=== PATIENT | female | born 1955 | race Caucasian/White ===

== ENCOUNTER → 2018-01-22 09:11 | Outpatient (CLI) | payer BC, SELFPAY ==
--- NOTE | 2018-01-22 09:15 | MM_ITS ---
MM Dig screening mamm BI w/CAD CAD Screening ORDERING PHYSICIAN : Ritesh Mills MD PATIENT AGE: 62 years GENDER: Female COMPARISON: Previous mammograms: January 2016, 2014, 2013. INDICATION: 62-year-old. No hormones. No new complaints. Noncontributory family history. TECHNIQUE: Standard CC and MLO images were obtained. R2 CAD reviewed. FINDINGS: Lower density breasts with overall generalized fatty replacement. No dominant mass or suspicious calcification nor architectural distortion. There are a few small stable calcifications in both breast but these can be followed safely. . Bilateral follow-up mammogram 1 year recommended IMPRESSION: Stable bilateral mammogram. No significant new findings. BI-RADS Category: 2 Benign Finding(s) RECOMMENDED FOLLOW-UP: 1YR - 1 YEAR FOLLOW-UP (A letter has been sent to the patient regarding results of the study.)
== END ==
PROVIDERS: Family Provider Family Medicine; PCP Family Medicine; Visit Provider Family Medicine
DX: Z12.31 Encounter for screening mammogram for malignant neoplasm of breast (principal)
CPT/HCPCS: 77067

== ENCOUNTER → 2019-02-18 08:32 | Outpatient (CLI) | payer BC, SELFPAY ==
--- NOTE | 2019-02-18 08:37 | MM_ITS ---
MM Dig screening mamm BI w/CAD CAD Screening COMPARISON: Digital mammograms with CAD 01/22/2018 and 02/11/2016 INDICATION: There is no personal or family history of breast cancer TECHNIQUE: Standard CC and MLO images were obtained. R2 CAD reviewed. FINDINGS: The breasts are composed primarily of fat with minimal scattered fiber glandular densities throughout each breast. There are few benign-appearing microcalcifications in each breast as noted previously. There is no suspicious lesion and there are no suspicious microcalcifications. IMPRESSION: Fatty type breast parenchyma with no suspicious lesion seen BI-RADS Category: 2 Benign Finding(s) RECOMMENDED FOLLOW-UP: 1YR - 1 YEAR FOLLOW-UP (A letter has been sent to the patient regarding results of the study.)
== END ==
PROVIDERS: PCP Family Medicine; Visit Provider Family Medicine
DX: Z12.31 Encounter for screening mammogram for malignant neoplasm of breast (principal)
CPT/HCPCS: 77067

== ENCOUNTER → 2020-06-28 07:41 | Outpatient (CLI) | payer BC, SELFPAY ==
--- NOTE | 2020-06-28 07:45 | MM_ITS ---
PROCEDURE: MM DIG SCREENING MAMM BI W/CAD Patient Age:64Y CLINICAL INDICATION: SCREENING routine screening mammogram with no new complaints. No hormones. The noncontributory negative family history COMPARISON: [facility] DIG MAMM-SCREEN JESUS from 02/08/2015 [facility] DIG MAMM-SCREEN [facility] from 02/11/2016 [facility] MM Dig screening mamm BI w/CAD from 01/22/2018 [facility] MM Dig screening mamm BI w/CAD from 02/18/2019 TECHNIQUE: Standard CC and MLO images were obtained. R2 CAD reviewed. Bilateral digital breast tomosynthesis included. Additional nipple profile views both CC and both MLO included FINDINGS: The the cut so is the minimal residual fibroglandular elements, moderate generalized fatty replacement. No new dominant or suspicious mass. No new areas of concern either breast with no change since prior studies dating back to at least CAD computer review highlights no areas of concern only a few small scattered benign punctate calcifications noted-not of concern. Bilateral Follow-up 1 year recommended IMPRESSION: Stable bilateral screening mammogram. No new areas of concern Follow-up 1 year Bilateral BI-RAD Category: 1 Negative FOLLOW-UP: 1YR 1 Year Follow-up. (A letter has been sent to the patient regarding results of the study.) Dictated b Gregory Morris MD 06/29/2020 13:20 Gregory Morris MD in [facility] 06/29/2020 13:20
== END ==
PROVIDERS: PCP Family Medicine; Visit Provider Family Medicine
DX: Z12.31 Encounter for screening mammogram for malignant neoplasm of breast (principal)
CPT/HCPCS: 77063; 77067

== ENCOUNTER → 2021-07-25 16:06 | Outpatient (CLI) | payer BC, SELFPAY ==
--- NOTE | 2021-07-25 16:10 | MM_ITS ---
PROCEDURE: MM DIG SCREENING MAMM BI W/CAD Digital Breast Tomosynthesis Included CLINICAL INDICATION: SCREENING COMPARISON: MG [facility] MM Dig screening mamm BI w/CAD from 01/22/2018 MG [facility] MM Dig screening mamm BI w/CAD from 02/18/2019 MG MM DIG SCREENING MAMM BI W/CAD from 06/28/2020 TECHNIQUE: Standard CC and MLO images and 3D Tomosynthesis was obtained. R2 CAD reviewed. FINDINGS: The breasts are almost entirely fatty.. No suspicious appearing mass, malignant-appearing microcalcification, architectural distortion, or skin thickening.. There is scattered benign-appearing calcifications. IMPRESSION: Benign findings. No change with no evidence of malignancy BI-RAD Category: 2 Benign Finding FOLLOW-UP: 1 YR 1 Year Follow-up (A letter has been sent to the patient regarding results of the study.) Dictated by: Magdiel Ramirez MD 08/07/2021 08:54 Magdiel Ramirez MD in [facility] 08/07/2021 08:54
== END ==
PROVIDERS: PCP Family Medicine; Visit Provider Nurse Practitioner
DX: Z12.31 Encounter for screening mammogram for malignant neoplasm of breast (principal)
CPT/HCPCS: 77063; 77067

== ENCOUNTER → 2021-11-28 10:43 | Outpatient (CLI) | payer BC, SELFPAY | PROVIDERS: Visit Provider Nurse Practitioner | DX: Z20.822 Contact with and (suspected) exposure to COVID-19 (principal) | CPT/HCPCS: C9803; U0003; U0005 ==

== ENCOUNTER → 2022-05-26 08:32 | Outpatient (CLI) | payer BC, SELFPAY ==
[2022-05-23 18:58] LABS: Alanine Aminotransferase 20 U/L (12-78); Albumin/Globulin Ratio 1.4 (1.1-1.8); Alkaline Phosphatase 116 U/L (38-126); Anion Gap 8.9 mEq/L (5-15); Aspartate Amino Transferase 29 U/L (14-36); Bilirubin,Total 0.6 mg/dl (0.2-1.3); Blood Urea Nitrogen 15 mg/dl (7-17); Calcium 9.8 mg/dl (8.4-10.2); Carbon Dioxide 31 mmol/L (22.0-30.0); Chloride 104 mmol/L (98-107); Chol/HDL Ratio 3.3 (1-3.5); Cholesterol 170 mg/dl (140-200); Estimated Glomerular Filt Rate 84 ml/min (>60); GFR (African American) 102 ML/MIN (>60); Globulin 2.8 g/dL (1.3-3.2); Glucose 113 mg/dl (74-100); HDL Cholesterol 52 mg/dl (40-60); Potassium 4.9 mmoL/L (3.5-5.1); Sodium 139 mmol/L (136-145); Total Protein,Serum 6.8 g/dl (6.3-8.2); Triglycerides 128 mg/dl (30-150); VLDL Cholesterol 26 mg/dL (0-40)
[2022-05-23 19:10] LABS: Direct LDL Cholesterol 79.12 mg/dL (100-129)
[2022-05-23 19:16] LABS: 25-OH Vitamin D, Total 21.2 ng/mL (30-100)
[2022-05-23 19:29] LABS: Thyroid Stimulating Hormone 0.79 uIU/mL (0.465-4.68)
[2022-05-23 19:39] LABS: Microalbumin < 6.000 mg/L (0-16.7)
[2022-05-23 20:07] LABS: Basophils # 0.1 K/mm3 (0-0.2); Basophils % 2.3 % (0.1-2.0); Eosinophils % 0.9 % (0.1-12.0); Hematocrit 43.1 % (37.0-47.0); Hemoglobin 13.9 g/dL (12.2-16.2); Lymphocytes # 1.3 K/mm3 (0.7-4.5); Lymphocytes % 27.9 % (10-50); Mean Corpuscular HGB Conc 32.3 g/dL (31.8-35.4); Mean Corpuscular Hemoglobin 30.5 pg (27.0-31.2); Mean Corpuscular Volume 94.2 fl (81-99); Mean Platelet Volume 8.6 fl (7.4-10.4); Monocytes # 0.4 K/mm3 (0.1-1.0); Monocytes % 7.7 % (1.7-9.3); Neutrophils # 2.8 K/mm3 (1.8-7.8); Neutrophils % 61.2 % (37.0-80.0); Platelet Count 232 K/mm3 (142-424); Red Blood Count 4.57 M/mm3 (4.20-5.40); Red Cell Distribution Width 13.3 % (11.5-17.5); White Blood Count 4.5 K/mm3 (4.8-10.8)
== END ==
PROVIDERS: Visit Provider Nurse Practitioner
DX: E03.9 Hypothyroidism, unspecified (principal); E78.5 Hyperlipidemia, unspecified; E55.9 Vitamin D deficiency, unspecified; Z13.1 Encounter for screening for diabetes mellitus; Z79.899 Other long term (current) drug therapy
CPT/HCPCS: 80053; 80061; 82043; 82306; 83036; 84436; 84443; 85025

== ENCOUNTER → 2022-07-16 06:41 | Outpatient (CLI) | payer BC, SELFPAY ==
[2022-07-16 21:49] LABS: 25-OH Vitamin D, Total 41.5 ng/mL (30-100)
== END ==
PROVIDERS: PCP Family Medicine; Visit Provider Family Medicine
DX: E55.9 Vitamin D deficiency, unspecified (principal)
CPT/HCPCS: 82306

== ENCOUNTER → 2022-08-20 08:15 | Outpatient (CLI) | payer BC, SELFPAY ==
--- NOTE | 2022-08-20 08:15 | MM_ITS ---
PROCEDURE INFORMATION: Exam: MG Bilateral Screening 3D Mammography Exam date and time: 08/20/2022 8:11 AM Age: 66 years old Clinical indication: Screening mammogram. TECHNIQUE: Imaging protocol: Bilateral Screening tomosynthesis and 2D mammography including computer-aided detection (CAD) when performed. COMPARISON: 1. MG MM DIG SCREENING MAMM BI W/CAD 07/25/2021 4:12 PM 2. MG MM DIG SCREENING MAMM BI W/CAD 06/28/2020 8:07 AM 3. MG [facility] MM Dig screening mamm BI w/CAD 02/18/2019 9:09 AM 4. MG [facility] MM Dig screening mamm BI w/CAD 01/22/2018 9:31 AM FINDINGS: MAMMOGRAPHY: Breast composition: There are scattered areas of fibroglandular density. Mass: None. Architectural distortion: No new or suspicious architectural distortion. Calcifications: Stable benign-appearing calcifications are present. No new or suspicious cluster of microcalcifications have developed. Asymmetric density: No new or suspicious asymmetric density is present Skin thickening: None. Axillary adenopathy: None. IMPRESSION: No mammographic evidence of malignancy. Recommend annual screening mammography unless otherwise clinically indicated. ASSESSMENT: BI-RADS category 2: Benign
== END ==
PROVIDERS: PCP Nurse Practitioner; Visit Provider Nurse Practitioner
DX: Z12.31 Encounter for screening mammogram for malignant neoplasm of breast (principal)
CPT/HCPCS: 77063; 77067

== ENCOUNTER → 2022-11-18 08:20 | Outpatient (CLI) | payer MEDICARE, SELFPAY ==
[2022-11-18 19:01] LABS: Alanine Aminotransferase 17 U/L (12-78); Albumin Level 4.2 g/dl (3.5-5.0); Albumin/Globulin Ratio 1.6 (1.1-1.8); Alkaline Phosphatase 116 U/L (38-126); Anion Gap 11.6 mEq/L (5-15); Aspartate Amino Transferase 26 U/L (14-36); Bilirubin,Total 0.5 mg/dl (0.2-1.3); Blood Urea Nitrogen 20 mg/dl (7-17); Calcium 9.8 mg/dl (8.4-10.2); Carbon Dioxide 29 mmol/L (22.0-30.0); Chloride 102 mmol/L (98-107); Cholesterol 158 mg/dl (140-200); Estimated Glomerular Filt Rate 84 ml/min (>60); GFR (African American) 102 ML/MIN (>60); Globulin 2.7 g/dL (1.3-3.2); Glucose 115 mg/dl (74-100); HDL Cholesterol 52 mg/dl (40-60); Potassium 4.6 mmoL/L (3.5-5.1); Sodium 138 mmol/L (136-145); Total Protein,Serum 6.9 g/dl (6.3-8.2); Triglycerides 152 mg/dl (30-150); VLDL Cholesterol 30 mg/dL (0-40)
[2022-11-18 19:11] LABS: Hemoglobin A1C 6.1 % (4.0-6.0)
[2022-11-18 19:12] LABS: Direct LDL Cholesterol 77.08 mg/dL (100-129)
[2022-11-18 19:16] LABS: Free T4 (Free Thyroxine) 1.85 ng/dl (0.78-2.19)
[2022-11-18 19:17] LABS: 25-OH Vitamin D, Total 44.6 ng/mL (30-100)
[2022-11-18 19:31] LABS: Thyroid Stimulating Hormone 0.45 uIU/mL (0.465-4.68)
== END ==
PROVIDERS: PCP Nurse Practitioner; Visit Provider Nurse Practitioner
DX: E03.9 Hypothyroidism, unspecified (principal); E78.5 Hyperlipidemia, unspecified; I10 Essential (primary) hypertension; R73.01 Impaired fasting glucose; E55.9 Vitamin D deficiency, unspecified
CPT/HCPCS: 80053; 80061; 82306; 83036; 84439; 84443

== ENCOUNTER → 2023-01-01 16:25 | Outpatient (CLI) | payer MEDICARE, SELFPAY ==
[2023-01-01 17:05] LABS: Alanine Aminotransferase 17 U/L (12-78); Albumin Level 4.2 g/dl (3.5-5.0); Albumin/Globulin Ratio 1.6 (1.1-1.8); Alkaline Phosphatase 106 U/L (38-126); Anion Gap 7.4 mEq/L (5-15); Aspartate Amino Transferase 24 U/L (14-36); Bilirubin,Total 0.6 mg/dl (0.2-1.3); Blood Urea Nitrogen 17 mg/dl (7-17); Calcium 9.1 mg/dl (8.4-10.2); Carbon Dioxide 30 mmol/L (22.0-30.0); Chloride 104 mmol/L (98-107); Chol/HDL Ratio 3.2 (1-3.5); Cholesterol 138 mg/dl (140-200); Estimated Glomerular Filt Rate 84 ml/min (>60); GFR (African American) 102 ML/MIN (>60); Globulin 2.7 g/dL (1.3-3.2); Glucose 114 mg/dl (74-100); HDL Cholesterol 43 mg/dl (40-60); Potassium 4.4 mmoL/L (3.5-5.1); Sodium 137 mmol/L (136-145); Total Protein,Serum 6.9 g/dl (6.3-8.2); Triglycerides 147 mg/dl (30-150); VLDL Cholesterol 29 mg/dL (0-40)
[2023-01-01 17:18] LABS: Direct LDL Cholesterol 71.52 mg/dL (100-129)
[2023-01-01 17:36] LABS: Thyroid Stimulating Hormone 0.95 uIU/mL (0.465-4.68)
[2023-01-01 18:27] LABS: Hemoglobin A1C 5.9 % (4.0-6.0)
== END ==
PROVIDERS: Visit Provider Nurse Practitioner
DX: E03.9 Hypothyroidism, unspecified (principal); E78.5 Hyperlipidemia, unspecified; I10 Essential (primary) hypertension; R73.01 Impaired fasting glucose
CPT/HCPCS: 80053; 80061; 83036; 84439; 84443

== ENCOUNTER → 2023-04-14 08:38 | Outpatient (CLI) | payer MEDICARE, SELFPAY ==
[2023-04-14 18:39] LABS: Alanine Aminotransferase 19 U/L (12-78); Albumin Level 4.1 g/dl (3.5-5.0); Albumin/Globulin Ratio 1.6 (1.1-1.8); Alkaline Phosphatase 123 U/L (38-126); Anion Gap 15.9 mEq/L (5-15); Aspartate Amino Transferase 27 U/L (14-36); Bilirubin,Total 0.5 mg/dl (0.2-1.3); Blood Urea Nitrogen 17 mg/dl (7-17); Calcium 9.1 mg/dl (8.4-10.2); Carbon Dioxide 28 mmol/L (22.0-30.0); Chloride 97 mmol/L (98-107); Chol/HDL Ratio 2.3 (1-3.5); Cholesterol 137 mg/dl (140-200); Estimated Glomerular Filt Rate 100 ml/min (>60); GFR (African American) 121 ML/MIN (>60); Globulin 2.6 g/dL (1.3-3.2); Glucose 96 mg/dl (74-100); HDL Cholesterol 59 mg/dl (40-60); Potassium 4.9 mmoL/L (3.5-5.1); Sodium 136 mmol/L (136-145); Total Protein,Serum 6.7 g/dl (6.3-8.2); Triglycerides 105 mg/dl (30-150); VLDL Cholesterol 21 mg/dL (0-40)
[2023-04-14 18:49] LABS: Direct LDL Cholesterol 66.42 mg/dL (100-129)
[2023-04-14 18:54] LABS: Free T4 (Free Thyroxine) 1.75 ng/dl (0.78-2.19)
[2023-04-14 18:58] LABS: 25-OH Vitamin D, Total 51.3 ng/mL (30-100)
[2023-04-14 19:12] LABS: Thyroid Stimulating Hormone 0.75 uIU/mL (0.465-4.68)
== END ==
PROVIDERS: PCP Nurse Practitioner; Visit Provider Nurse Practitioner
DX: E03.9 Hypothyroidism, unspecified (principal); E11.9 Type 2 diabetes mellitus without complications; E55.9 Vitamin D deficiency, unspecified; E78.5 Hyperlipidemia, unspecified; I10 Essential (primary) hypertension; R39.15 Urgency of urination; E66.01 Morbid (severe) obesity due to excess calories; Z68.41 Body mass index [BMI] 40.0-44.9, adult; Z79.84 Long term (current) use of oral hypoglycemic drugs
CPT/HCPCS: 80053; 80061; 82306; 84439; 84443; 87086

== ENCOUNTER → 2023-04-27 13:05 | Outpatient (CLI) | payer MEDICARE, SELFPAY | PROVIDERS: PCP Nurse Practitioner; Visit Provider Nurse Practitioner | DX: R06.83 Snoring (principal); G47.33 Obstructive sleep apnea (adult) (pediatric); I10 Essential (primary) hypertension | CPT/HCPCS: G0399 ==

== ENCOUNTER → 2023-08-25 08:13 | Outpatient (CLI) | payer MEDICARE, SELFPAY ==
--- NOTE | 2023-08-25 08:14 | MM_ITS ---
PROCEDURE INFORMATION: Exam: MG Bilateral Screening 3D Mammography Exam date and time: 08/25/2023 8:08 AM Age: 67 years old Clinical indication: Screening mammogram. No personal or family history of breast cancer TECHNIQUE: Imaging protocol: Bilateral Screening tomosynthesis and 2D mammography including computer-aided detection (CAD) when performed. COMPARISON: 1. MG MM DIG SCREENING MAMM BI W/CAD 08/20/2022 8:11 AM 2. MG MM DIG SCREENING MAMM BI W/CAD 07/25/2021 4:12 PM 3. MG MM DIG SCREENING MAMM BI W/CAD 06/28/2020 8:07 AM 4. MG [facility] MM Dig screening mamm BI w/CAD 02/18/2019 9:09 AM FINDINGS: MAMMOGRAPHY: Breast composition: There are scattered areas of fibroglandular density. Mass: None. Architectural distortion: No new or suspicious architectural distortion. Calcifications: No new or suspicious calcifications are present Asymmetric density: No new or suspicious asymmetric density is present Skin thickening: None. Axillary adenopathy: None. IMPRESSION: No mammographic evidence of malignancy. Recommend annual screening mammography unless otherwise clinically indicated. ASSESSMENT: BI-RADS category 1: Negative
== END ==
PROVIDERS: PCP Nurse Practitioner; Visit Provider Nurse Practitioner
DX: Z12.31 Encounter for screening mammogram for malignant neoplasm of breast (principal)
CPT/HCPCS: 77063; 77067

== ENCOUNTER → 2023-09-07 18:26 | Outpatient (CLI) | payer MEDICARE, SELFPAY ==
[2023-09-07 18:40] LABS: Microscopic, Urine URINE MICROSCOPIC (MICROSCOPIC)
[2023-09-07 18:50] LABS: Appearance,Urine CLEAR (Clear); Bilirubin,Urine Negative (Negative); Blood, Urine Negative (Negative); Color,Urine YELLOW (Yellow); Glucose,Urine (UA) Negative (Negative); Ketones,Urine Negative (Negative); Leukocyte Esterase,Urine Negative (Negative); Nitrate,Urine Negative (Negative); PH,Urine 5.5 (5.0-8.5); Protein,Urine Negative (Negative); Specific Gravity, Urine 1.025 (1.005-1.030); Urobilinogen,Urine 0.2 EU/dl (0.2)
[2023-09-07 19:10] LABS: Squamous Epithelial Cell,Urine Occasional #/hpf (0-5); WBC,Urine Occasional #/hpf (0-3)
== END ==
PROVIDERS: PCP Nurse Practitioner; Visit Provider Nurse Practitioner
DX: N30.01 Acute cystitis with hematuria (principal)
CPT/HCPCS: 81001; 87086

== ENCOUNTER → 2023-09-29 08:46 | Outpatient (CLI) | payer MEDICARE, SELFPAY ==
[2023-09-29 19:00] LABS: Basophils % 0.5 % (0.1-2.0); Eosinophils # 0.1 K/mm3 (0.0-0.4); Eosinophils % 0.9 % (0.1-12.0); Hematocrit 42.2 % (37.0-47.0); Hemoglobin 14.6 g/dL (12.2-16.2); Lymphocytes # 1.6 K/mm3 (0.7-4.5); Lymphocytes % 24.8 % (10-50); Mean Corpuscular HGB Conc 34.6 g/dL (31.8-35.4); Mean Corpuscular Hemoglobin 32.2 pg (27.0-31.2); Mean Platelet Volume 8.5 fl (7.4-10.4); Monocytes # 0.4 K/mm3 (0.1-1.0); Monocytes % 6.4 % (1.7-9.3); Neutrophils # 4.3 K/mm3 (1.8-7.8); Neutrophils % 67.4 % (37.0-80.0); Platelet Count 231 K/mm3 (142-424); Red Blood Count 4.54 M/mm3 (4.20-5.40); Red Cell Distribution Width 13.2 % (11.5-17.5); White Blood Count 6.4 K/mm3 (4.8-10.8)
[2023-09-29 19:12] LABS: Alanine Aminotransferase 19 U/L (12-78); Albumin/Globulin Ratio 1.4 (1.1-1.8); Alkaline Phosphatase 102 U/L (38-126); Anion Gap 10.6 mEq/L (5-15); Aspartate Amino Transferase 27 U/L (14-36); Bilirubin,Total 0.6 mg/dl (0.2-1.3); Blood Urea Nitrogen 19 mg/dl (7-17); Calcium 9.3 mg/dl (8.4-10.2); Carbon Dioxide 29 mmol/L (22.0-30.0); Chloride 102 mmol/L (98-107); Chol/HDL Ratio 2.8 (1-3.5); Cholesterol 161 mg/dl (140-200); Estimated Glomerular Filt Rate 72 ml/min (>60); GFR (African American) 87 ML/MIN (>60); Globulin 2.8 g/dL (1.3-3.2); Glucose 101 mg/dl (74-100); HDL Cholesterol 57 mg/dl (40-60); Potassium 4.6 mmoL/L (3.5-5.1); Sodium 137 mmol/L (136-145); Total Protein,Serum 6.8 g/dl (6.3-8.2); Triglycerides 110 mg/dl (30-150); VLDL Cholesterol 22 mg/dL (0-40)
[2023-09-29 19:20] LABS: Creatinine,Urine Random 19 mg/dL (Not Estab.)
[2023-09-29 19:23] LABS: Direct LDL Cholesterol 85.51 mg/dL (100-129)
[2023-09-29 19:32] LABS: Free T4 (Free Thyroxine) 2.15 ng/dl (0.78-2.19); Microalbumin < 6.000 mg/L (0-16.7)
[2023-09-29 19:43] LABS: Thyroid Stimulating Hormone 1.09 uIU/mL (0.465-4.68)
[2023-09-29 20:30] LABS: Hemoglobin A1C 5.6 % (4.0-6.0)
== END ==
PROVIDERS: PCP Nurse Practitioner; Visit Provider Nurse Practitioner
DX: E03.9 Hypothyroidism, unspecified (principal); E78.5 Hyperlipidemia, unspecified; I10 Essential (primary) hypertension; J30.9 Allergic rhinitis, unspecified; R73.01 Impaired fasting glucose
CPT/HCPCS: 80053; 80061; 82043; 82570; 83036; 84439; 84443; 85025

== ENCOUNTER 2024-05-02 18:00 | Outpatient (CLI) | payer MEDICARE, SELFPAY ==
[2024-05-02 18:13] LABS: Basophils # 0.1 K/mm3 (0-0.2); Basophils % 0.8 % (0.1-2.0); Eosinophils # 0.1 K/mm3 (0.0-0.4); Eosinophils % 0.7 % (0.1-12.0); Hematocrit 44.1 % (37.0-47.0); Hemoglobin 14.3 g/dL (12.2-16.2); Lymphocytes # 1.8 K/mm3 (0.7-4.5); Lymphocytes % 22.5 % (10-50); Mean Corpuscular HGB Conc 32.5 g/dL (31.8-35.4); Mean Corpuscular Hemoglobin 30.9 pg (27.0-31.2); Mean Corpuscular Volume 94.8 fl (81-99); Mean Platelet Volume 8.6 fl (7.4-10.4); Monocytes # 0.4 K/mm3 (0.1-1.0); Monocytes % 5.5 % (1.7-9.3); Neutrophils # 5.5 K/mm3 (1.8-7.8); Neutrophils % 70.5 % (37.0-80.0); Platelet Count 265 K/mm3 (142-424); Red Blood Count 4.65 M/mm3 (4.20-5.40); Red Cell Distribution Width 13.7 % (11.5-17.5); White Blood Count 7.8 K/mm3 (4.8-10.8)
[2024-05-02 18:19] LABS: Chloride 97 mmol/L (98-107); Potassium 4.8 mmoL/L (3.5-5.1); Sodium 133 mmol/L (136-145)
[2024-05-02 18:22] LABS: Alanine Aminotransferase 18 U/L (12-78); Albumin/Globulin Ratio 1.5 (1.1-1.8); Alkaline Phosphatase 120 U/L (38-126); Anion Gap 9.8 mEq/L (5-15); Aspartate Amino Transferase 27 U/L (14-36); Bilirubin,Total 0.7 mg/dl (0.2-1.3); Blood Urea Nitrogen 22 mg/dl (7-17); Calcium 9.8 mg/dl (8.4-10.2); Carbon Dioxide 31 mmol/L (22.0-30.0); Cholesterol 185 mg/dl (140-200); Estimated Glomerular Filt Rate 72 ml/min (>60); GFR (African American) 87 ML/MIN (>60); Globulin 2.7 g/dL (1.3-3.2); Glucose 114 mg/dl (74-100); Total Protein,Serum 6.7 g/dl (6.3-8.2); Triglycerides 95 mg/dl (30-150); VLDL Cholesterol 19 mg/dL (0-40)
[2024-05-02 18:23] LABS: Chol/HDL Ratio 2.8 (1-3.5); HDL Cholesterol 65 mg/dl (40-60)
[2024-05-02 18:34] LABS: Direct LDL Cholesterol 87.24 mg/dL (100-129)
[2024-05-02 18:38] LABS: Free T4 (Free Thyroxine) 2.38 ng/dl (0.78-2.19)
[2024-05-02 18:53] LABS: Thyroid Stimulating Hormone 0.37 uIU/mL (0.465-4.68)
[2024-05-02 18:57] LABS: 25-OH Vitamin D, Total 41.5 ng/mL (30-100)
[2024-05-02 19:11] LABS: Hemoglobin A1C 5.9 % (4.0-6.0)
[2024-05-02 19:43] LABS: Microalbumin/Creatinine Ratio 17.1
[2024-05-02 19:46] LABS: Creatinine,Urine Random 42 mg/dL (Not Estab.)
[2024-05-02 19:54] LABS: Vitamin B12 208 pg/mL (239-931)
== END 2024-05-02 23:59 | disposition home or self-care (01) ==
LOC: LAB.DROPOF 05-03 09:40
PROVIDERS: PCP Nurse Practitioner; Visit Provider Nurse Practitioner
DX: E55.9 Vitamin D deficiency, unspecified (principal); I10 Essential (primary) hypertension; R73.01 Impaired fasting glucose; E03.9 Hypothyroidism, unspecified; E78.5 Hyperlipidemia, unspecified; Z68.39 Body mass index [BMI] 39.0-39.9, adult; Z79.84 Long term (current) use of oral hypoglycemic drugs
CPT/HCPCS: 80050; 80053; 80061; 82043; 82306; 82570; 82607; 83036; 84439; 84443; 85025

== ENCOUNTER 2024-10-31 09:38 | Outpatient (CLI) | payer MEDICARE, SELFPAY ==
--- NOTE | 2024-10-31 09:39 | MM_ITS ---
PROCEDURE INFORMATION: Exam: MG Bilateral Screening 3D Mammography Exam date and time: 10/31/2024 9:50 AM Age: 69 years old Clinical indication: Screening mammogram TECHNIQUE: Imaging protocol: Bilateral Screening tomosynthesis and 2D mammography including computer-aided detection (CAD) when performed. COMPARISON: 1. MG MM DIG SCREENING MAMM BI W/CAD 08/25/2023 8:08 AM 2. MG MM DIG SCREENING MAMM BI W/CAD 08/20/2022 8:11 AM 3. MG MM DIG SCREENING MAMM BI W/CAD 07/25/2021 4:12 PM 4. MG MM DIG SCREENING MAMM BI W/CAD 06/28/2020 8:07 AM FINDINGS: MAMMOGRAPHY: Breast composition: There are scattered areas of fibroglandular density. Mass: None. Architectural distortion: No new or suspicious architectural distortion. Calcifications: No new or suspicious calcifications are present Asymmetric density: No new or suspicious asymmetric density is present Skin thickening: None. Axillary adenopathy: None. IMPRESSION: No mammographic evidence of malignancy. Recommend annual screening mammography unless otherwise clinically indicated. ASSESSMENT: BI-RADS category 1: Negative.
== END 2024-10-31 23:59 | disposition home or self-care (01) ==
LOC: RAD 09:39
PROVIDERS: PCP Nurse Practitioner; Visit Provider Nurse Practitioner
DX: Z12.31 Encounter for screening mammogram for malignant neoplasm of breast (principal)
CPT/HCPCS: 77063; 77067

== ENCOUNTER 2024-11-11 09:10 | Outpatient (CLI) | payer MEDICARE, SELFPAY ==
[2024-11-11 18:39] LABS: Chloride 100 mmol/L (98-107); Potassium 4.2 mmoL/L (3.5-5.1); Sodium 132 mmol/L (136-145)
[2024-11-11 18:41] LABS: Blood Urea Nitrogen 21 mg/dl (7-17); Estimated Glomerular Filt Rate 62 ml/min (>60); GFR (African American) 76 ML/MIN (>60)
[2024-11-11 18:42] LABS: Alanine Aminotransferase 22 U/L (12-78); Albumin/Globulin Ratio 1.5 (1.1-1.8); Alkaline Phosphatase 119 U/L (38-126); Anion Gap 6.2 mEq/L (5-15); Aspartate Amino Transferase 30 U/L (14-36); Bilirubin,Total 0.7 mg/dl (0.2-1.3); Calcium 9.4 mg/dl (8.4-10.2); Carbon Dioxide 30 mmol/L (22.0-30.0); Globulin 2.6 g/dL (1.3-3.2); Glucose 116 mg/dl (74-100); Total Protein,Serum 6.6 g/dl (6.3-8.2)
[2024-11-11 18:54] LABS: Hematocrit 42.2 % (37.0-47.0); Hemoglobin 13.7 g/dL (12.2-16.2); Mean Corpuscular HGB Conc 32.5 g/dL (31.8-35.4); Mean Corpuscular Hemoglobin 30.2 pg (27.0-31.2); Red Blood Count 4.54 M/mm3 (4.20-5.40); Red Cell Distribution Width 12.6 % (11.5-17.5); White Blood Count 6.6 K/mm3 (4.8-10.8)
[2024-11-11 18:55] LABS: Basophils % 0.9 % (0.1-2.0); Eosinophils % 0.5 % (0.1-12.0); Lymphocytes # 1.4 K/mm3 (0.7-4.5); Lymphocytes % 21.5 % (10-50); Mean Platelet Volume 9.9 fl (7.4-10.4); Monocytes # 0.4 K/mm3 (0.1-1.0); Monocytes % 6.3 % (1.7-9.3); Neutrophils # 4.6 K/mm3 (1.8-7.8); Neutrophils % 70.5 % (37.0-80.0); Platelet Count 284 K/mm3 (142-424)
[2024-11-11 18:56] LABS: Basophils # 0.1 K/mm3 (0-0.2)
[2024-11-11 19:10] LABS: Thyroid Stimulating Hormone 1.71 uIU/mL (0.465-4.68)
[2024-11-11 19:19] LABS: HIV Combo NEGATIVE (Negative)
[2024-11-11 20:03] LABS: 25-OH Vitamin D, Total 56.2 ng/mL (30-100)
[2024-11-11 20:10] LABS: Hemoglobin A1C 6.1 % (4.0-6.0)
[2024-11-14 10:08] LABS: HCV Ab Non Reactive (Non Reactive)
== END 2024-11-11 23:59 | disposition home or self-care (01) ==
LOC: LAB.DROPOF 11-14 11:45
PROVIDERS: PCP Nurse Practitioner Family; Visit Provider Nurse Practitioner Family
DX: Z13.1 Encounter for screening for diabetes mellitus (principal); E55.9 Vitamin D deficiency, unspecified; E03.9 Hypothyroidism, unspecified
CPT/HCPCS: 80053; 82306; 83036; 84443; 85025; 86803; 87389

== ENCOUNTER 2025-08-29 09:00 | Outpatient (CLI) | payer MEDICARE, SELFPAY ==
--- OUTSIDE RECORDS SUMMARY | 2025-06-30 09:15 | XMS_ITS | Encounter Summary ---
Author Organization [facility] Address [address] [place] [address] Care Team Providers Care Replacer Name Role Phone Elisabeth Mills Primary Care Provider [phone] Reason for Visit * Reason Comments Pain Follow-up Encounter Details Date Type Department Care Team (Latest Contact Info) Description 06/30/2025 9:15 AM [place] [address] Wilton Aguayo PA-C [address] [place] [address] Status post total knee replacement, right (Primary Dx); Primary osteoarthritis of left knee Social History Tobacco Use Types Packs/Day Years Used Date Smoking Tobacco: Never Smokeless Tobacco: Never Alcohol Use Standard Drinks/Week Comments Never 0 (1 standard drink = 0.6 oz pur e alcohol) Comments No Sex and Gender Information Value Date Recorded Sex Assigned at Not on file Legal Sex Female 7:46 AM EDT Gender Identity Not on file Sexual Orientation Not on file documented as of this encounter Progress Notes * Wilton Aguayo PA-C - 06/30/2025 9:15 AM EDTAssociated Order(s): Large Joint Injection/Arthrocentesis: L knee Post-Procedure Diagnose(s): Primary osteoarthritis of left knee Large Joint Injection/Arthrocentesis: L knee on 06/30/2025 9:15 AM Indications: pain Details: 22 G needle, anterolateral approach Medications: 40 mg triamcinolone acetonide 40 mg/mL; 2 mL BUPivacaine HCl 0.25 % (2.5 mg/mL) Outcome: tolerated well, no immediate complications Procedure, treatment alternatives, risks and benefits explained, specific risks discussed. Consent was given by the patient. Immediately prior to procedure a time out was called to verify the correctpatient, procedure, equipment, customer support analyst and site/side marked as required. Patient was prepped and draped in the usual sterile fashion. * Wilton Aguayo PA-C - 06/30/2025 9:15 AM EDT Images from the original note were not included. [address] [phone] ([phone]) [place], [place] [phone] [place], [place] Radha Sage 1955 Date of Visit: 06/30/2025 Chief Complaint: Chief Complaint Patient presents with Left Knee - Pain, Follow-up History: The patient is a 69 y.o. female who comes in today for repeat check of Bilateral knee. Status post right total knee replacement in May 2024 with subsequent manipulation under anesthesia. Despite conservative measures and aggressive physical therapy she continues to describe stiffness to the right knee. This evaluated for severe bilateral knee osteoarthritis. We are maximizing conservative measures for the left knee. We should proceed with repeat injection of the left knee at today's visit. Physical Examination: Well-healed surgical incision of the right knee. No erythema, drainage or other signs or symptoms of infection. Range of motion is 3 degrees of hyperextension and flexion to 110degrees. No appreciable joint effusion. Appropriate tracking the patella. Intact extensor mechanism. Stable varus and valgus. No mid flexion instability. Reproducible pain with overpressure beyond 110 degrees. Soft compartments. Sensate to touch. Palpable pulses. Neurovascular intact. Range of motion of the left knee is lacking 2 degrees of full extension and flexion to 115+ degrees. Crepitus in the gutters. Appropriate tracking of patella. Intact extensor mechanism. Stable varus and valgus. Negative anterior and posterior drawer. Negative Will. Equivocal pinch. Negative Castro. Negative Thessaly. Soft compartments. Sensate to touch. Palpable pulses. Neurovascularly intact. Impression: Status post right total knee replacement Severe left knee osteoarthritis Plan: Updated radiographic images of left knee were obtained at today's visit. Redemonstration of significant arthritic changes of the left knee. Will maximize the conservative measures of the left knee with a cortisone injection at today's visit. Seek a secondary opinion with Dr. Spencer for his expertise and arthroscopic procedures. Consideration of an opinion on arthroscopic lysis of adhesions for the persistent stiffness post total knee replacement. Verbalized understanding and agreeable to the plan. All questions and concerns answered. Imagin views of the left knee demonstrate severe tricompartment osteoarthritis. Complete narrowing of joint space medial compartment moderate genu varum deformity. Subchondral sclerosis. No bony lesions or acute fractures. PROCEDURE: Verbal and written consent was obtained for a corticosteroid injection. The patient understands there is a risk for infection which may require surgery. In addition, they may only get temporary relief or no relief of their symptoms. The patient is advised to call the office of any signs of infection immediately. The patient was also advised to watch their blood sugars if they have diabetes. See procedure note below. DME Summary No orders found for display The supervising/collaborating provider for the technical component of the x-rays is Dr. Cedra. Please note that this weight recorder was created using voice recognition software. Any errors are unintentional, and may be due to voice recognition weight recorder. Cosigned by Matt Cerda MD at 07/05/2025 4:35 PM EDT documented in this encounter Plan of Treatment Upcoming Encounters Date Type Department Care Team (Late st Contact Info) Description 08/31/2025 4:00 PM EDT Appointment [facility] Physical Therapy [address] [place] [address] Collin Traore, PT 09/04/2025 10:00 AM EDT Appointment [facility] Physical Therapy [address] [place] [address] Virginia Bagley, PT [address] [facility] [place] [address] 09/07/2025 4:00 PM EDT Appointment [facility] Physical [address] [place] [address] Collin Traore, PT 09/11/2025 10:00 AM EDT Appointment [facility] Physical [address] [place] [address] Virginia Bagley, PT [address] [place] [address] 09/14/2025 4:00 PM EDT Appointment [address] [place] [address] Collin Traore, PT 09/18/2025 10:00 AM EDT Appointment [facility] Physical [address] [place] [address] Virginia Bagley, PT [address] [place] [address] 09/19/2025 9:00 AM EDT Office Visit [facility] [address] [place] [phone] Yobany Roberts, [address] [place] [address] 2025 4:00 PM EDT Appointment [facility] Physical [address] [place] [address] Collin Traore, PT 10/03/2025 9:30 AM EST Office Visit [facility] [address] [place] [address] Mehul Ruiz, HEALTH SYSTEMS ANALYST [address] [place] [address] 10/04/2025 8:00 AM EST Office Visit [facility] [address] [place] [address] Gabe Spencer MD [address] [place] [address] documented as of this encounter Procedures Procedure Name Priority Date/Time Associated Diagnosis Comments GA ARTHROCENTESIS ASPIR&/INJ MAJOR JT/BURSA W/O US Routine 06/30/2025 9:15 AM EDT Primary osteoarthritis of left knee documented in this encounter Results * GA ARTHROCENTESIS ASPIR&/INJ MAJOR JT/BURSA W/O US (06/30/2025 9:15 AM EDT) Narrative [facility] - 06/30/2025 9:15 AM EDT Wilton Aguayo PA-C 07/05/2025 3:34 PM Large Joint Injection/Arthrocentesis: L knee on 06/30/2025 9:15 AM Indications: pain Details: 22 G needle, anterolateral approach Medications: 40 mg triamcinolone acetonide 40 mg/mL; 2 mL BUPivacaine HCl 0.25 % (2.5 mg/mL) Outcome: tolerated well, no immediate complications Procedure, treatment alternatives, risks and benefits explained, specific risks discussed. Consent was given by the patient. Immediately prior to procedure a time out was called to verify the correct patient, procedure, equipment, customer support analyst and site/side marked as required. Patient was prepped and draped in the usual sterile fashion. us Wilton Aguayo PA-C PROCEDURE/MINOR SURGICAL OR DERABLES Final Result [facility] * XR KNEE LEFT AP LATERAL AND SUNRISE STANDING (06/30/2025 9:13 AM EDT) Narrative Cboy Rodriguez - 06/30/2025 9:13 AM EDT Please see physician's note from office encounter for x-ray imaging result us Wilton FORREST-C [facility] Final Result documented in this encounter Visit Diagnoses Diagnosis Status post total knee replacement, right- Primary Primary osteoarthritis of left knee Primary localized osteoarthrosis, lower leg Primary osteoarthritis of left knee Primary localized osteoarthrosis, lower leg documented in this encounter Administered Medications Inactive Administered Medications - up to 1 most recent administrations Medication Order MAR Action Action Date Dose Rate Site BUPivacaine HCl (MARCAINE) 0.25 % (2.5 mg/mL) injection 2 mL 2 mL, Intra-articular, ONCE PRN, 1 dose, Starting on Thu06/30/25 at 0915, Until Thu06/30/25 at 0915, Dx: 1. Primary osteoarthritis of left kneeIndications:Primary osteoarthritis of left knee Given 06/30/2025 9:15 AM EDT 2 mL Left Knee triamcinolone acetonide (KENALOG-40) injection 40 mg 40 mg, Intra-articular, ONCE PRN, 1 dose, Starting on Thu06/30/25 at 0915, Until Thu06/30/25 at 0915, Dx: 1. Primary osteoarthritis of left kneeIndications:Primary osteoarthritis of left knee Given 06/30/2025 9:15 AM EDT 40 mg Left Knee documented in this encounter Care Teams Replacer Relationship Specialty Start Date End Date Elisabeth Mills [address] [place] [address] [address] [facility] [address] PCP - General 12/18/10 documented as of this encounter
--- OUTSIDE RECORDS SUMMARY | 2025-06-30 09:30 | XMS_ITS | Encounter Summary ---
Author Organization [facility] Address [address] [place] [address] Care Team Providers Care Keg Raiser Name Role Phone Elisabeth Mills Primary Care Provider [phone] Encounter Details Date Type Department Care Team (Latest Contact Info) Description 06/30/2025 9:30 [place] [address] Wilton Aguayo PA-C [address] [place] [address] Primary osteoarthritis of left knee Social History [...] on file documented as of this encounter Plan of Treatment Upcoming Encounters Date Type Department Care Team (Late st Contact Info) Description 08/31/2025 4:00 PM EDT Appointment [facility] Physical Therapy [address] [place] [address] Collin Traore, PT 09/04/2025 10:00 AM EDT Appointment [facility] Physical Therapy [address] [place] [address] Virginia Bagley, PT [address] [place] [phone] 09/07/2025 4:00 PM EDT Appointment [facility] Physical Therapy [address] [place] [address] Collin Traore, PT 09/11/2025 10:00 AM EDT Appointment [facility] Physical [address] [place] [address] Virginia Bagley, PT [address] [place] [address] 09/14/2025 4:00 PM EDT Appointment [facility] Physical [address] [place] [address] Collin Traore, PT 09/18/2025 10:00 AM EDT Appointment [address] [place] [address] Virginia Bagley, PT [address] [place] [address] 09/19/2025 9:00 AM EDT Office Visit [facility] [address] [place] [address] Yobany Roberts, [address] [place] [address] 2025 4:00 PM EDT Appointment [facility] Physical Therapy [address] [place] [address] Collin Traore, PT 10/03/2025 9:30 AM EST Office Visit [facility] [address] [place] [address] Mehul Ruiz, AGRICULTURE RESEARCH DIRECTOR [address] [place] [address] 10/04/2025 8:00 AM EST Office Visit [facility] [address] [place] [address] Gabe Spencer MD [address] [place] [address] documented as of this encounter Procedures Procedure Name Priority Date/Time Associated Diagnosis Comments XR KNEE LEFT AP LATERAL AND SUNRISE STANDING Routine 06/30/2025 9:13 AM EDT Primary osteoarthritis of left knee documented in this encounter Results * XR KNEE LEFT AP LATERAL AND SUNRISE STANDING (06/30/2025 9:13 AM EDT) Narrative Coby Rodriguez - 06/30/2025 9:13 AM EDT Please see physician's note from office encounter for x-ray imaging result Wilton Aguayo PA-C [facility] Final Result documented in this encounter Visit Diagnoses Diagnosis Primary osteoarthritis of left knee Primary localized osteoarthrosis, lower leg documented in this encounter Care Teams Keg Raiser Relationship Specialty Start Date End Date Elisabeth Mills [address] [facility] [address] PCP - General 12/18/10 documented as of this encounter
--- OUTSIDE RECORDS SUMMARY | 2025-07-05 15:45 | XMS_ITS | Encounter Summary ---
Author Organization [facility] Address [address] [place] [address] Care Team Providers Care Goodwill Representative Name Role Phone Elisabeth Mills Primary Care Provider [phone] Reason for Referral * Physical Therapy (Routine) - Authorized Specialty Diagnoses / Procedures Referred By Junito trivedi Referred To Contact Physical Therapy Diagnoses Status post total knee replacement, right Gabe Spencer MD [address] [facility] [address] [place] [address] Phone: tel: fax: [facility] [place] [place] [address] Phone: tel: fax: Referral ID Status Reason Start Date Expiration Date V isits Requested Visits Authorized [id number] Authorized 08/14/2025 10/09/2025 1 6 Question Answer surgical procedure KNEE A/S LUISA Select as appropriate Evaluate and treat appropriately Modalities/Procedures As Indicated Therapeutic Exercise As Indicated, Passive, Active, Progressive Resistive, Flexibility/Stretching Goals: Decrease pain and swelling, Increase function, Increase strength, Increase ROM Additional instructions: Frequency and duration per therapist discretion Medical Necessity: Promote full function post operatively * Surgical (Routine) - AFF Authorization Not Needed Specialty Diagnoses / Procedures Referred By Junito trivedi Referred To Contact Diagnoses Status post total knee replacement, right Procedures AMB OC SURGERY COMMUNICATION ORDER Gabe Spencer MD [address] [place] [address] Phone: tel: fax: Referral ID Status Reason Start Date Expiration Date Visits Requested Visits Authorized [id number] AFF Authorization Not Needed 07/05/2025 07/05/2026 1 1 Reason for Visit * Reason Comments Pain Encounter Details Date Type Department Care Team (Late st Contact Info) Description 07/05/2025 3:45 PM EDT Office Visit [facility] [address] [place] [address] Gabe Spencer MD [address] [place] [address] Status post total knee replacement, right (Primary Dx) Social History Tobacco Use Types Packs/Day Years [...] as of this encounter Progress Notes * Gabe Spencer MD - 07/05/2025 3:45 PM EDT Images from the original note were not included. Nia Aguilar APRN/ Orthopaedic Surgery/Sports Medicine [address] [place] [address] Patient Name: Radha Sage Date of : 1955 Primary Care Physician: Elisabeth Mills DATE OF VISIT: 07/05/2025 This patient was seen in consultation with Dr Spencer today. I am acting as a scribe. Chief Complaint: No chief complaint on file. Procedure Note: 05/24/2024 Dr Cerda POST-OP DIAGNOSIS: Localized osteoarthritis of right knee [M17.11] PROCEDURE: Procedure(s): Right Total Knee Replacement Procedure Note: 07/14/2024 Dr Cerda POST-OP DIAGNOSIS: Status post total knee replacement, right [Z96.651] PROCEDURE: Procedure(s): Right Knee Manipulation Under Anesthesia History of Present Illness: Radha Sage is a 69 y.o. female comes in today for evaluation of her right knee. She had a right total knee arthroplasty with subsequent manipulation under anesthesia. She continued with pain in the knee and was given an injection on 08/23/2024. At her last visit she had limited flexion with continued pain. She then tried a knee brace, voltaren gel and tylenol. She saw Dung Aguayo again to discuss her limited motion and pain. She notes patellar clunking and she notes a pinching sensation to her knee. She does stand a lot and she does a lot with her grandchildren. Medical History: Past Medical History: Diagnosis Date Essential (primary) hypertension Hypercholesteremia 08/27/2023 Hypothyroidism Prediabetes Review of Systems: Pertinent items are noted in HPI Review of systems reviewed from Patient History Form is available in the patient's chart. General Exam: Patient is alert and oriented, adequately groomed in no acute distress. BMI: 37.4 at the last time of measurement. Knee Examination: Inspection: The knee has no effusion, however; there is general synovitis. Palpation: Pain is noted to the medial and lateral compartments with some mild patellofemoral discomfort. Range of Motion: She does come out to near full extension lacking approximately 5 degrees flexion is 90 to 95 degrees today. Strength: Is weakened with resistive testing, tightness in hamstring area. Skin: There are no abrasions, rashes, ulcerations or lesions. Distally there is no swelling, mild venous trophic changes associated with normal aging. Gait: Is mildly antalgic. Diagnosis: Soft tissue impingement status post total knee replacement. Plan: Dr. Spencer reviewed the imaging in person today. They continue to have pain and limitations with activities of daily living despite more conservative treatment. Dr Spencer had an extensive conversation with the patient and/or family regarding the risks, benefits, potential complication and reasonable expectations of the planned procedure. Informed verbal consent was given under no distress. We had ample opportunities for questions regarding the usual outcomes. Risks specifically discussed, but not limited to the following, include possible: bleeding, blood clots, anesthesia complications, nerve and blood vessel injury, infection, re-tear or re-injury, need for additional surgery, and post-operative stiffness. Additionally the implant can be scratched with during the procedure. In addition; in rare cases the patient may have loss of a limb (ex; severe uncontrolled infection). No guarantee of any particular results were given. Everything will be addressed during surgery, and any additional procedures will be performed as surgically indicated. The patient understands that in some cases surgery can make them worse. The patient and/or family desire that we proceed at the soonest possible time with the operation and expressed clear understanding. The patient has consented to RIGHT KNEE ARTHROSCOPY , LYSIS OF ADHESIONS Nia Aguilar APRN Parts of this note may have been created by a chart review, combined by taking my own patient history. The patient was physically seen and examined by myself, including a personal review of images, tests, and formation of the impression and plan. In addition, this note may been dictated utilizing voice recognition software. Unfortunately this leads to occasional typographical errors. I apologize in advance if the situation occurs. If questions occur please do not hesitate to call our office. The patient was advised to call with any issues or concerns in the future. documented in this encounter Miscellaneous Notes * Addendum Note - Princess Pabon, Clerical Staff - 07/05/2025 3:45 PM EDTAddended by: PRINCESS PABON on: 07/07/2025 03:11 PM Modules accepted: Orders documented in this encounter Plan of Treatment Upcoming Encounters Date Type Department Care Team (Late st Contact Info) Description 08/31/2025 4:00 PM EDT Appointment [facility] Physical Therapy [address] [place] [address] Collin Traore, PT 09/04/2025 10:00 AM EDT Appointment [facility] Physical Therapy [address] [place] [address] Virginia Bagley, PT [address] [place] [address] 09/07/2025 4:00 PM EDT Appointment [facility] Physical Therapy [address] [place] [address] Collin Traore, PT 09/11/2025 10:00 AM EDT Appointment [address] [place] [address] Virginia Bagley, PT [address] [place] [phone] 09/14/2025 4:00 PM EDT Appointment [facility] Physical [address] [place] [address] Collin Traore, PT 09/18/2025 10:00 AM EDT Appointment [address] [place] [address] Virginia Bagley, PT [address] [place] [address] 09/19/2025 9:00 AM EDT Office Visit [facility] [address] [place] [phone] Yobany Roberts DO [address] [place] [address] 2025 4:00 PM EDT Appointment [facility] Physical [address] [place] [address] Collin Traore, PT 10/03/2025 9:30 AM EST Office Visit [facility] [address] [address] Mehul Ruiz, SENIOR ADMINISTRATOR SUPPORT [address] [place], [place] [id number] 10/04/2025 8:00 AM EST Office Visit [facility] [address] [place] [address] Gabe Spencer MD [address] [place] [address] [place] [address] Scheduled Orders Name Type Priority Associated Diagnoses Orde r Schedule SURGICAL/PROCEDURE CASE REQUEST - [facility] Procedures Routine Status post total knee replacement, right Ordered: 07/07/2025 Scheduled Referrals Name Type Priority Associated Diagnoses Orde r Schedule AMB REFERRAL TO PHYSICAL THERAPY Outpatient Referral Routine Status post total knee replacement, right Ordered: 07/05/2025 documented as of this encounter Visit Diagnoses Diagnosis Status post total knee replacement, right- Primary documented in this encounter Orders Nursing Count Last Ordered Date First Orde red Date AMB OC SURGERY COMMUNICATION ORDER 1 2024 documented in this encounter Care Teams Goodwill Representative Relationship Specialty Start Date End Date Elisabeth Mills [address] [facility] [address] [place] [address] PCP - General 12/18/10 documented as of this encounter
--- OUTSIDE RECORDS SUMMARY | 2025-07-31 09:05 | XMS_ITS | Encounter Summary ---
Author Organization [place] [address] Care Team Providers Care Lining Presser Name Role Phone Elisabeth Mills Primary Care Provider [phone] Encounter Details Date Type Department Care Team (Latest Contact Info) Description 07/31/2025 9:05 AM EDT - 07/31/2025 11:59 PM EDT Hospital Encounter [facility] [address] [id number] Preop testing Discharge Disposition: Home or Self Care Social History Tobacco Use Types Packs/Day Years [...] on file documented as of this encounter Medications at Time of Discharge amLODIPine (NORVASC) 2.5 mg Oral Tablet Take 1 Tablet by mouth 2 times daily. 180 Tablet 1 06/20/2024 atorvastatin (LIPITOR) 40 mg Oral TabletIndications :Hypercholesterem ia,Bilateral carotid artery stenosis Take 1 Tablet by mouth daily. 90 Tablet 3 08/05/2024 Cholecalciferol, Vitamin D3, 125 mcg (5,000 unit) Oral Tablet Take 5,000 Units by mouth. 08/18/2022 Cranberry 400 mg Oral Capsule Take 1 Capsule by mouth daily. hydroCHLOROthiazi de 25 mg Oral Tablet Take 25 mg by mouth daily. LEVOthyroxine (SYNTHROID) 137 mcg Oral TabletIndications :Pain in both knees, unspecified chronicity Take 137 mcg by mouth daily early intervention specialist. Thursday to Thursday takes 1 tablet but on Thursday patient takes 1/2 tablet. losartan (COZAAR) 50 mg Oral Tablet Take 25 mg by mouth 2 times daily. metFORMIN (GLUCOPHAGE XR) 500 mg Oral ER 24 hr tablet Take 500 mg by mouth daily (with breakfast). 08/04/2023 aspirin 81 mg Oral Tablet, ChewableIndicatio ns:Bilateral carotid artery stenosis Take 1 Tablet by mouth daily. 30 Tablet 11 08/05/2024 docusate sodium (COLACE) 100 mg Oral Capsule Take one capsule three times a day while on pain meds 90 Capsule 08/11/2025 oxyCODONE (ROXICODONE) 5 mg Oral Tablet Take 1 Tablet by mouth every 4 hours as needed for Major Surgery/Trauma (G89.18) for up to 28 doses. 28 Tablet 08/11/2025 promethazine (PHENERGAN) 25 mg Oral Tablet Take 1 Tablet by mouth every 6 hours as needed for Nausea for up to 20 doses. 20 Tablet 08/11/2025 documented as of this encounter Discharge Disposition Disposition Code Departure Means Destination Home or Self Care documented in this encounter Plan of Treatment Upcoming Encounters Date Type Department Care Team (Late st Contact Info) Description 08/31/2025 4:00 PM EDT Appointment [facility] Physical Therapy [address] [place] [address] oCllin Traore, PT 09/04/2025 10:00 AM EDT Appointment [facility] Physical Therapy [address] [place] [address] Virginia Bagley, PT [address] [place] [address] 09/07/2025 4:00 PM EDT Appointment [facility] Physical [address] [place] [address] Collin Traore, PT 09/11/2025 10:00 AM EDT Appointment [facility] Physical Therapy [address] [place] [address] Virginia Bagley, PT [address] [place] [phone] 09/14/2025 4:00 PM EDT Appointment [address] [place] [address] Collin Traore, PT 09/18/2025 10:00 AM EDT Appointment [address] [place] [address] Virginia Bagley, PT [address] [place] [address] 09/19/2025 9:00 AM EDT Office Visit [facility] [address] [place] [phone] Yobany Roberts DO [address] [place] [address] 2025 4:00 PM EDT Appointment [facility] Physical [address] [place] [address] Collin Traore, PT 10/03/2025 9:30 AM EST Office Visit [facility] [address] [address] Mehul Ruiz, KAYA [address] [place], [place] [id number] 10/04/2025 8:00 AM EST Office Visit [facility] [address] [address] Gabe Spencer MD [address] [address] [place] [address] documented as of this encounter Procedures Procedure Name Priority Date/Time Associated Diagnosis Comments BASIC METABOLIC PANEL Routine 07/31/2025 9:06 AM EDT Preop testing documented in this encounter Results * (ABNORMAL) BASIC METABOLIC PANEL (07/31/2025 9:06 AM EDT) Sodium 139 136 - 145 mmol/L 07/31/2025 5:14 PM EDT [facility] Potassium 4.3 3.5 - 5.0 mmol/L 07/31/2025 5:14 PM EDT [facility] Chloride 100 98 - 107 mmol/L 07/31/2025 5:14 PM EDT [facility] Total CO2 26 22 - 29 mmol/L 07/31/2025 5:14 PM EDT [facility] Anion Gap 13 7 - 16 mmol/L 07/31/2025 5:14 PM EDT [facility] Calcium 9.9 8.8 - 10.4 mg/dL 07/31/2025 5:14 PM EDT [facility] Glucose Lvl 120(H) 70 - 99 mg/dL 07/31/2025 5:14 PM EDT [facility] BUN 17 8 - 23 mg/dL 07/31/2025 5:14 PM EDT [facility] Creatinine 0.76 0.51 - 1.30 mg/dL 07/31/2025 5:14 PM EDT [facility] eGFR (CKD-EPIcr 2020) 85 >=60 mL/min/1.7 3 m2 07/31/2025 5:14 PM EDT [facility] Comment:Estimated GFR was ca lculated using the CKD-EPIcr (2020) equation refit without race. The equation is recommended by the National Kidney Foundation - [place] Society of Nephrology Task Force. Blood VENOUS BLOOD / Unknown Venipuncture / Unknown 07/31/2025 9:06 AM EDT 07/31/2025 9:06 AM EDT us Aryan Law MD CHEMISTRY ORDERABLES Terrie viri Result [facility] [address] [facility] , [address] [place], [place] [phone] documented in this encounter Visit Diagnoses Diagnosis Preop testing Preoperative examination, unspecified documented in this encounter Care Teams Lining Presser Relationship Specialty Start Date End Date Elisabeth Mills [address] [facility] [place] [address] PCP - General 12/18/10 documented as of this encounter
--- OUTSIDE RECORDS SUMMARY | 2025-07-31 10:00 | XMS_ITS | Encounter Summary ---
Author Organization [facility] [address] Care Team Providers Care Transition Rn Name Role Phone Elisabeth Mills Primary Care Provider [phone] Reason for Visit * Reason Comments EKG Check Encounter Details Date Type Department Care Team (Latest Contact Info) Description 07/31/2025 10:00 AM EDT Clinical Support [facility] [place] [facility] [address] [place], [place] [phone] Teo Hauser, RN Encounter for electrocardiogram (Primary Dx) Social History Tobacco Use Types [...] on file documented as of this encounter Last Filed Vital Signs Vital Sign Reading Time Taken Comments Blood Pressure - - Pulse - - Temperature - - Respiratory Rate - - Oxygen Saturation - - Inhaled Oxygen Concentration - - Weight 103 kg (227 lb) 07/31/2025 9:29 AM EDT Height - - Body Mass Index 38.96 07/27/2025 2:55 PM EDT documented in this encounter Progress Notes * Teo Hauser RN - 07/31/2025 10:00 AM EDT Patient in for a nurse visit for an EKG for cardiac clearance for [facility] procedure on 08/11. Will route to ordering provider (Dr Roberts) for review. * Teo Hauser RN - 07/31/2025 10:[address] Roberts: ECG looks good. No concerns. Okay with surgery Called patient and notified of Dr Roberts's review/response. Patient verbalized understanding. documented in this encounter Plan of Treatment Upcoming Encounters Date Type Department Care Team (Late st Contact Info) Description 08/31/2025 4:00 PM EDT Appointment [facility] Physical Therapy [address] [place] [address] Collin Traore, PT 09/04/2025 10:00 AM EDT Appointment [facility] Physical Therapy [address] [address] Virginia Bagley, PT [address] [place] [phone] 09/07/2025 4:00 PM EDT Appointment [facility] Physical Therapy [address] [address] Collin Traore, PT 09/11/2025 10:00 AM EDT Appointment [facility] Physical Therapy [address] [address] Virginia Bagley, PT [address] [place] [address] 09/14/2025 4:00 PM EDT Appointment [facility] Physical Therapy [address] [address] Collin Traore, PT 09/18/2025 10:00 AM EDT Appointment [facility] Physical Therapy [address] [address] Virginia Bagley, PT [address] [place] [address] 09/19/2025 9:00 AM EDT Office Visit [facility] [address] [place] [address] Yobany Roberts DO [address] [place] [address] 2025 4:00 PM EDT Appointment [facility] Physical Therapy [place] [address] [place] [address] Collin Traore, PT 10/03/2025 9:30 AM EST [facility] [address] [address] Mehul Ruiz, KAYA [address] [place] [address] 10/04/2025 8:00 AM EST Office Visit [facility] [address] [address] Gabe Spencer MD [address] [place] [address] Pending Results Name Type Priority Associated Diagnoses Date /Time POCT EKG Point of Care Testing Routine Encounter for electrocardiogram 07/31/2025 9:38 AM EDT documented as of this encounter Procedures Procedure Name Priority Date/Time Associated Diagnosis Comments POCT EKG Routine 07/31/2025 9:38 AM EDT Encounter for electrocardiogram documented in this encounter Visit Diagnoses Diagnosis Encounter for electrocardiogram- Primary Other specified examination documented in this encounter Discontinued Medications Medication Sig Discontinue Reason Start Date End Da te acetaminophen (TYLENOL) 500 mg Oral Tablet Take 2 Tablets by mouth every 8 hours as needed for Pain. DELETE-Therapy completed 07/14/2024 07/31/2025 chlorhexidine (HIBICLENS) 4 % Top LiquidIndications:Locali zed osteoarthritis of right knee Use as directed on bottle prior to surgery DELETE-Therapy completed 05/19/2024 07/31/2025 cranberry fruit (CRANBERRY) 450 mg Oral Tablet Take 450 mg by mouth daily. DELETE-Duplicate 07/31/2025 oxyCODONE (ROXICODONE) 5 mg Oral Tablet 1-2 po every 8 hours as needed for pain DELETE-Therapy completed 07/14/2024 07/31/2025 tiZANidine (ZANAFLEX) 2 mg Oral TabletIndications:Status post total knee replacement, right Take 1 Tablet by mouth every 8 hours as needed. DELETE-Therapy completed 08/23/2024 07/31/2025 traMADoL (ULTRAM) 50 mg Oral TabletIndications:Locali zed osteoarthritis of right knee Take 1-2 Tablets by mouth every 8 hours as needed for Pain. DELETE-Therapy completed 07/26/2024 07/31/2025 documented as of this encounter Care Teams Transition Rn Relationship Specialty Start Date End Date Elisabeth Mills [address] [place] [address] [address] [place] [address] PCP - General 12/18/10 documented as of this encounter
--- OUTSIDE RECORDS SUMMARY | 2025-08-11 07:52 | XMS_ITS | Encounter Summary ---
Author Organization [place] [address] Care Team Providers Care Interactive Video Technician Name Role Phone GeneElisabeth trivedi Primary Care Provider [phone] Reason for Visit * Auth/Cert/Inpt Specialty Diagnoses / Procedures Referred By Junito trivedi Referred To Contact Diagnoses Status post total knee replacement, right Status post total knee replacement, right [Z96.651] Procedures NM ARTHROSCOPY KNEE W/LYSIS ADHESIONS W/WO MANJ SPX RIGHT KNEE ARTHROSCOPY , LYSIS OF ADHESIONS Referral ID Status Reason Start Date Expiration Date Visits Re quested Visits Authorized [id number] 1 1 Encounter Details Date Type Department Care Team (Late st Contact Info) Description 08/11/2025 7:52 AM EDT - 08/11/2025 2:55 PM EDT Hospital Encounter [facility] SAME DAY SURGERY [address] [place] [address] Gabe Spencer MD [address] [address] Preop testing (Primary Dx) Discharge Disposition: Home or Self Care Social [...] Sign Reading Time Taken Comments Blood Pressure 107/63 08/11/2025 2:44 PM EDT Pulse 93 08/11/2025 2:44 PM EDT Temperature 36.1 C (97 F) 08/11/2025 2:54 PM EDT Respiratory Rate 20 08/11/2025 2:44 PM EDT Oxygen Saturation 100% 08/11/2025 2:44 PM EDT Inhaled Oxygen Concentration - - Weight 104.3 kg (230 lb) 07/27/2025 2:55 PM EDT Height 162.6 cm (5' 4 ) 07/27/2025 2:55 PM EDT Body Mass Index 39.48 07/27/2025 2:55 PM EDT documented in this encounter Discharge Instructions * Discharge Instructions* Gabe Spencer MD - 08/11/2025 10:38 AM EDT Images from the original note were not included. +++++++++++++++++++++++++++++++++++++++++++++++++++++++++++++++++++ [facility] Discharge Instructions - Following Anesthesia We appreciate the opportunity to care for you today! Here are a few reminders as you head home: A responsible adult, 18 years or older must be in attendance until tomorrow morning. Rest quietly today. May resume usual diet as tolerated or as directed by your surgeon. Do not drive or operate any machinery until tomorrow morning or as instructed. Do not make any legal or important decisions for the next 24 hours. Do not drink alcoholic beverages or take sleeping pills for 24 hours unless otherwise directed. If you have questions or concerns regarding your anesthesia experience, please call our office at . Get Well Soon! [facility] +++++++++++++++++++++++++++++++++++++++++++++++++++++++++++++++++++ Home Care Instructions following Orthopaedic Surgery 1. A responsible adult, 18 years of age or older, must be in attendance for 24 hours following discharge. 2. Rest quietly today. 3. Start with liquids first like 7-up or Gatorade. If no nausea after 1 hour, proceed with a light meal. 4. Do not drive or operate heavy machinery. 5. No alcoholic beverages for 24 hours, or while taking pain medicine. 6. Do not make any legal or important decisions for at least the next 24 hours. 7. Check temperature over the next five days and call if greater than 101.0 F. 8. Notify physician if you have a rash, hives, difficulty breathing, severe nausea and vomiting. 9. Contact your family physician for questions concerning home medications. 10. If pain gets worse, call your physician. 11. If physician is unavailable, go to the Emergency Room. Knee Arthroscopy Discharge Instructions 1. Keep operative knee elevated (above the level of the heart). 2. Apply ice pack/ polar care to your knee. 3. Dressing: Keep your dressing on, clean and dry until removed by physical therapy. 4. Physical therapy: Yes, begin in 2-3 days. 5. Crutches/Walker: Use as needed. Weight bearing as tolerated. 6. Take one regular aspirin a day for 30 days. UNLESS 1) You are allergic 2) You take blood thinners (OK to restart) 3) You take aspirin regularly (OK to restart) 7. Call physician's office for post-op visit in 7-10 days. 8. Physician's phone number: [phone] 9. Resume home medications as prescribed by your other doctors. 10. Phenergan for nausea and Colace for constipation are already escribed and waiting for you at your pharmacy. 11. If you are in pain management, or get pain meds from another doctor, check with that doctor BEFORE filling new pain meds 12. If you received oxycodone or tramadol, take 2 extra-strength Tylenol (500mg tablet) three timesa day for a week, and the pain medicine/narcotic as needed. Check your other medicines for acetaminophen, and keep total daily dosage at 3000mg. * Attachments The following attachments cannot be sent through Care Everywhere. 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 Thursday to Thursday takes 1 tablet but [...] Tablet 08/11/2025 documented as of this encounter Ordered Prescriptions Prescription Sig Dispense Quantity Refills Last Filled Start Date End Date docusate sodium (COLACE) 100 mg Oral Capsule Take one capsule three times a day while on pain meds 90 Capsule 08/11/2025 oxyCODONE (ROXICODONE) 5 mg Oral Tablet Take 1 Tablet by mouth every 4 hours as needed for Major Surgery/Traum a (G89.18) for up to 28 doses. 28 Tablet 08/11/2025 promethazine (PHENERGAN) 25 mg Oral Tablet Take 1 Tablet by mouth every 6 hours as needed for Nausea for up to 20 doses. 20 Tablet 08/11/2025 documented in this encounter Discharge Disposition Disposition Code Departure Means Destination Comment s Home or Self [facility] documented in this encounter H&P Notes * Deni Holliday NP - 08/11/2025 8:10 AM EDT [facility] History and Physical Name: Radha Sage ADDRESS: [address] [place] [address] : 1955 AGE: 69 y.o. Assessment: Status post total knee replacement, right [Z96.651] Plan: Procedure(s): RIGHT KNEE ARTHROSCOPY , LYSIS OF ADHESIONS per Gabe Spencer MD Admitting Physician: Gabe Spencer MD Date of Admit: 08/11/2025 Subjective SUBJECTIVE Chief Complaint: Status post total knee replacement, right [Z96.651] History of Present Illness: Patient is a 69 y.o. female with Status post total knee replacement, right [Z96.651] who presents for surgical intervention. Past Medical History: Diagnosis Date Arthritis Essential (primary) hypertension High cholesterol Hypercholesteremia 08/27/2023 Hypothyroidism Post-operative nausea and vomiting mild post op nausea Prediabetes Sleep apnea CPAP Past Surgical History: Procedure Laterality Date SECTION SECTION JOINT REPLACEMENT Right 05/24/2024 Right Total Knee Replacement; Surgeon: Matt Cerda MD; Location: [facility]; Service: Orthopedics KNEE JOINT MANIPULATION Right 07/14/2024 Right Knee Manipulation Under Anesthesia; Surgeon: Matt Cerda MD; Location: [facility]; Service: Orthopedics ORTHOPEDIC SURGERY [facility] 2023 Total knee replacement Prior to Admission medications Medication Sig Start Date End Date Last Dose Authorizing Provider amLODIPine (NORVASC) 2.5 mg Oral Tablet Take 1 Tablet by mouth 2 times daily. 06/20/24 Taking Roberts, Yobany R, DO aspirin 81 mg Oral Tablet, Chewable Take 1 Tablet by mouth daily. 08/05/24 Taking Yobany Roberts, atorvastatin (LIPITOR) 40 mg Oral Tablet Take 1 Tablet by mouth daily. 08/05/24 Taking Yobany Roberts, Cholecalciferol, Vitamin D3, 125 mcg (5,000 unit) Oral Tablet Take 5,000 Units by mouth. 08/18/22 Taking Provider, Historical Cranberry 400 mg Oral Capsule Take 1 Capsule by mouth daily. Taking Provider, Historical hydroCHLOROthiazide 25 mg Oral Tablet Take 25 mg by mouth daily. Taking Provider, Historical LEVOthyroxine (SYNTHROID) 137 mcg Oral Tablet Take 137 mcg by mouth daily project geologist. Thursday to Thursday takes 1 tablet but on Thursday patient takes 1/2 tablet. Taking Provider, Historical losartan (COZAAR) 50 mg Oral Tablet Take 25 mg by mouth 2 times daily. Patient taking differently: Take 50 mg by mouth 2 times daily. Taking Provider, Historical metFORMIN (GLUCOPHAGE XR) 500 mg Oral ER 24 hr tablet Take 500 mg by mouth daily (with breakfast). 08/04/23 Taking Provider, Historical No Known Allergies Social History Socioeconomic History Marital status: Spouse name: None Number of children: None Years of education: None Highest education level: None Tobacco Use Smoking status: Never Smokeless tobacco: Never Vaping Use Vaping status: Never Used Substance and Sexual Activity Alcohol use: Never Drug use: Never Family History Problem Relation Age of Onset Diabetes Mother Hypertension Mother High Cholesterol Mother Heart Attack Mother Heart Surgery Mother Heart Disease Mother High Blood Pressure Mother Cancer Father High Cholesterol Father Heart Attack Father Heart Surgery Father Heart Disease Father Anesth Problems Neg Hx Active Hospital Problems Diagnosis *Status post total knee replacement, right Blood pressure 147/71, temperature 96.5 ??F (35.8 ??C), temperature source Forehead, resp. rate 18,height 5' 4 (1.626 m), weight 230 lb (104.3 kg), SpO2 100%.Pain: 01/30 Review of Systems: The listed systems were reviewed and reveal the following in addition to any already discussed in the HPI: Review of Systems Constitutional: Negative for chills, diaphoresis, fever, malaise/fatigue and weight loss. HENT: Negative for congestion, ear discharge, ear pain, hearing loss, nosebleeds, sinus pain, sore throat and tinnitus. Respiratory: Negative for stridor. Musculoskeletal: Positive for joint pain and myalgias. Negative for back pain, falls and neck pain. Hx of total knee replacement last year. States it still causes her pain. Denies weakness, numbness or any changes since exam per ortho. Skin: Negative for itching and rash. Endo/Heme/Allergies: ASA: Stopped about ten days ago. Objective OBJECTIVE Physical Exam: Body mass index is 39.48 kg/m??. Body surface area is 2.08 meters squared. Physical Exam Vitals and nursing note reviewed. Exam conducted with a hosiery mender present. Constitutional: General: She is not in acute distress. Appearance: She is well-developed. She is not diaphoretic. HENT: Head: Normocephalic. Mouth/Throat: Pharynx: No oropharyngeal exudate. Eyes: General: No scleral icterus. Right eye: No discharge. Left eye: No discharge. Conjunctiva/sclera: Conjunctivae normal. Pupils: Pupils are equal, round, and reactive to light. Neck: Thyroid: No thyromegaly. Vascular: No JVD. Trachea: No tracheal deviation. Cardiovascular: Rate and Rhythm: Normal rate and regular rhythm. Heart sounds: Normal heart sounds. No murmur heard. No friction rub. No gallop. Pulmonary: Effort: Pulmonary effort is normal. No respiratory distress. Breath sounds: Normal breath sounds. No stridor. No wheezing or rales. Chest: Chest wall: No tenderness. Abdominal: General: Bowel sounds are normal. Palpations: Abdomen is soft. Tenderness: There is no abdominal tenderness. There is no guarding. Musculoskeletal: General: No swelling, tenderness, deformity or signs of injury. Cervical back: Normal range of motion and neck supple. Right lower leg: No edema. Left lower leg: No edema. Comments: Right knee: TTP Skin clear/dry/intact Lymphadenopathy: Cervical: No cervical adenopathy. Skin: General: Skin is warm and dry. Capillary Refill: Capillary refill takes less than 2 seconds. Coloration: Skin is not pale. Findings: No erythema or rash. Neurological: General: No focal deficit present. Mental Status: She is alert and oriented to person, place, and time. Mental status is at baseline. Cranial Nerves: No cranial nerve deficit. Sensory: No sensory deficit. Motor: No weakness. Coordination: Coordination normal. Gait: Gait normal. Psychiatric: Mood and Affect: Mood normal. Behavior: Behavior normal. Thought Content: Thought content normal. Labs: Latest Reference Range & Units 05/20/24 10:17 Hgb A1c 4.2 - 5.6 % 6.0 (H) (H): Data is abnormally high Latest Reference Range & Units 07/31/25 09:06 Sodium 136 - 145 mmol/L 139 Potassium 3.5 - 5.0 mmol/L 4.3 Chloride 98 - 107 mmol/L 100 CO2 22 - 29 mmol/L 26 Calcium 8.8 - 10.4 mg/dL 9.9 Glucose 70 - 99 mg/dL 120 (H) BUN 8 - 23 mg/dL 17 Creatinine, Ser 0.51 - 1.30 mg/dL 0.76 eGFR (CKD-EPIcr 2020) >=60 mL/min/1.73 m2 85 Anion Gap 7 - 16 mmol/L 13 (H): Data is abnormally high Radiology: EK07/31/2025 Sinus Rhythm -occasional ectopic ventricular beat Low voltage in precordial leads. Deni Holliday NP 08/11/2025 documented in this encounter Procedure Notes * Gabe Spencer MD - 08/11/2025 12:36 PM EDT DATE OF OPERATION: 08/11/2025 PREOPERATIVE DIAGNOSIS: Right knee arthrofibrosis, painful total knee replacement. POSTOPERATIVE DIAGNOSIS: Right knee arthrofibrosis, painful total knee replacement. PROCEDURE PERFORMED: Right knee total knee replacement, arthroscopic lysis of adhesions/extensive synovectomy. SURGEON: Gabe Pratt MD MUD TRUCKER: Nia Aguilar NP/LEAD PROJECT ENGINEER. Talent Development Consultant necessary surgery as she actively assisted in patient positioning, retraction, and suturemanagement. ANESTHESIA: General with block. ESTIMATED BLOOD LOSS: Minimal. TOURNIQUET TIME: None. COMPLICATIONS: None apparent. INDICATIONS FOR PROCEDURE: The patient is a 69-year-old female who underwent a total knee replacement. It has been complicated by continued pain and stiffness. She presents now for surgical intervention. The risks and benefits of surgery as well as alternatives were discussed with her at length prior to procedure. She understands in general, there are no guarantees this will make it better, and she could possibly be worse after surgery. Despite the risks involved with surgery and despite the lack of guarantee she would be made better by surgery, she has elected to proceed. Questions were elicited and answered to her satisfaction, and again, no guarantees were expressed nor implied. DESCRIPTION OF PROCEDURE: Once informed consent was obtained, preoperative site marking performed, patient brought into the operating room and placed supine on the table. Preoperative antibiotics andwere administered. Her right lower extremity was prepped in the usual sterile fashion. A timeout was performed. Standard inferomedial, inferolateral, and superolateral portals were established. Examination of the knee revealed her entire suprapatellar pouch was socked in with scar. I removed that scar and recreated a suprapatellar pouch with a radiofrequency wand and a shaver. There was extensive scar tissue around her patella. This was also removed with shaver and vapor wand. I cleaned out the medial and lateral gutters, although they did not have as much scar in them. The scopewas placed in the superolateral portal, and there was scar tissue imbricated in a cyclops fashion in the anterior aspect of the notch. This was carved out with a radiofrequency wand and then a shaver. I then went to each medial and lateral compartment, where there was imbricating tissue. I removed that tissue, again, with the radiofrequency wand and the shaver. I went through all the areas again,cleaned out any additional scar tissue. Hemostasis was obtained with the radiofrequency wand. It then got cleaned up very nicely. Copious irrigation flushed the knee, and instruments removed. Wounds were closed with 4-0 nylon, and a sterile dressing was applied. Patient tolerated the procedure welland transferred to the recovery room in stable condition. Postoperatively, the patient is weightbearing as tolerated, can start physical therapy, and followup in my office in about one week for wound check. Reviewed in full by yesenia/MARILEE, 08/11/2025 Gabe Spencer M.D. By: Zander Job ID: [id number] Doc ID: [id number] * Gabe Spencer MD - 08/11/2025 12:31 PM EDT Just got off phone with [facility], discussed surgical findings and answered all questions * Gabe Spencer MD - 08/11/2025 12:30 PM EDT [facility] OPERATIVE/PROCEDURE NOTE Radha Sage August 11, 2025 PRE-OP DIAGNOSIS: Status post total knee replacement, right [Z96.651] POST-OP DIAGNOSIS: Status post total knee replacement, right [Z96.651] PROCEDURE(S): Procedure(s): RIGHT KNEE ARTHROSCOPY , LYSIS OF ADHESIONS SURGEON(S): Surgeons and Role: * Gabe Spencer MD - Primary MUD TRUCKER: Nia Aguilar NP/LEAD PROJECT ENGINEER An personal assistant was necessary as she actively assisted with instrumentation, retraction, reduction, and suture management. ANESTHESIA: General w/Block ESTIMATED BLOOD LOSS: approx 5ml or as listed by anesthesia SPECIMEN: * No specimens in log * DISPOSITION/POST PROC COURSE: Stable -> Recovery Room Gabe Spencer MD Date: 08/11/2025 documented in this encounter Nursing Notes * Shobha Lao RN - 07/27/2025 3:07 PM EDT Images from the original note were not included. PREPARING FOR YOUR SURGERY Date of Surgery: 08/11/25 Arrival time: Your surgeon may have already provided this, check your paperwork from the office. Ifnot received, call your surgeon's office. Location: [place] Get EKG/labs prior to surgery Medications on the Day of Surgery Take the following medications on the morning of surgery: Amlodipine, Levothyroxine Medications to hold prior to surgery; Verify with your doctor for possibly discontinuing the following medications: blood thinners, aspirin, or anti-inflammatories. Stop taking all supplements 7 days prior to your surgery. Do not take any COREY inhibitors (ends in PRIL ) or angiotensin receptor blockers (ends in SARTAN )on the day of surgery No Losartan day of surgery [facility] DIABETIC INSTRUCTIONS-ORAL MEDS: Day before Surgery:Take all diabetic meds as usual unless your doctor gives you other instructions., Do not take any oral DIABETIC medications the morning of surgery., and We will check your blood sugar when you get to the hospital and throughout the day. Food, Drinks, Tobacco Do not eat any food after midnight. This includes gum, mints, candy, chewing tobacco, and dip. Unless otherwise instructed by your surgeon, you may consume water, Gatorade, Powerade, black coffee/tea(no milk, no cream/creamers, no sugar). Finish these liquids 2 hours prior to your scheduled arrival time. No exceptions or substitutions to these restrictions. Do not smoke, vape, or use any type of tobacco or marijuana products within 24 hours prior to surgery. Smoking will also slow your rate of healing. It is advised that you do not smoke during the healing process. No alcohol 24 hours prior to surgery. Digital Marketing Program Manager It is important to have a Digital Marketing Program Manager, someone who is 18 years or older, to accompany you and remain in the facility for the duration of your surgery. This person should be available for the Perioperative Team, which includes your surgeon, to communicate with before, during and after your surgery. Because you are receiving anesthesia, someone is needed to drive you home and remain with you for at least 24 hours after surgery to make sure you are safe during that time We also recommend that no children be present on the day of surgery. If you have a concern, please reach out to our department [phone]. Hygiene [place] your teeth and gargle the morning of surgery. Shower the morning of surgery or the night before. Do not wear makeup (including eye makeup) lotion, powder, deodorant, perfume, or cologne. Do not shave the operative extremity or near the operative area. Remove nail mongolian prior to surgery. This includes artificial nails and gel nail mongolian. Personal Items Wear clean, simple, loose-fitting clothing (no jeans) and sturdy shoes (no flip flops, slides or crocs) to the hospital. Do not bring unnecessary valuables with you. It is policy that [facility] does not assume responsibility for lost, stolen or broken personal items that are brought in. Exceptions may be consideredfor items which are considered necessary for your healthcare. These items will be formally documented. Remove all jewelry prior to surgery to prevent injury. We will not tape wedding rings/bands Remove all body piercings prior to arrival. Plastic inserts are acceptable. Glasses and contacts will need to be removed prior to surgery. Please bring a case for them.. Bring with You Bring a copy of your Living Will and/or Durable Power of Services Tech for Healthcare. If you are having surgery at the hospital and you wear a CPAP or BIPAP, please bring your mask tubing and machine settings with you. The hospital will supply a machine to use during your hospital stay. Notify the Surgeon Notify your surgeon if you develop any illness (fever, cold, cough, sore throat, nausea, vomiting, skin rashes etc.) between now and surgery time Notify your surgeon and Pre-admission testing ([phone]) if you have any changes in your healthconditions or if any new medications are ordered between now and surgery.. Questions or Concerns? If you have any questions or concerns, feel free to call the Pre-Admission testing department at [phone]. We want to make sure you feel safe and have an excellent experience while you are here. Do not reply to this message through [employer] as it may not be answered promptly. Same Day Surgery Unit - [facility] at [phone]; Please get dropped off at Main Entrance 1A Stopat front end developer and they will direct you to registration. Parking will be to the left of the buildingin the parking lot and parking garage. After surgery, you will be discharged from surgery discharge door [address]. [address] [place] [address]. DOORS OPEN AT 6:00 AM THU-THU AND 6:30 AM ON THURSDAY Surgical Site Infections FAQs What is a Surgical Site Infection (SSI)? A surgical site infection is an infection that occurs after surgery in the part of the body where the surgery took place. Most patients who have surgery do not develop an infection. However, infections develop in about 1 to 3 out of every 100 patients who have surgery. Some of the common symptoms of a surgical site infection are: Redness and pain around the area where you had surgery Drainage of cloudy fluid from your surgical wound. Fever Can SSIs be treated? Yes. Most surgical site infections can be treated with antibiotics. The antibiotic given to you depends on the bacteria (germs) causing the infection. Sometimes patients with SSIs also need another surgery to treat the infection. What are some of the things that hospitals are doing to prevent SSIs? To prevent SSIs, doctors, nurses, and other healthcare providers: Clean their hands and arms up to their elbows with an antiseptic agent just before the surgery. Clean their hands with soap and water or an alcohol-based hand rub before and after caring for eachpatient. May remove some of your hair immediately before your surgery using electric clippers if the hair isin the same area where the procedure will occur. They should not shave you with a razor. Wear special hair covers, masks, gowns, and gloves during surgery to keep the surgery area clean. Give you antibiotics before your surgery starts. In most cases, you should get antibiotics within 60 minutes before the surgery starts and the antibiotics should be stopped within 24 hours after surgery. Clean the skin at the site of your surgery with a special soap that kills germs. What can I do to help prevent SSIs? Before your surgery: Tell your doctor about other medical problems you may have. Health problems such as allergies, diabetes, and obesity could affect your surgery and your treatment. Quit smoking. Patients who smoke get more infections. Talk to your doctor about how you can quit before your surgery. Do not shave near where you will have surgery. Shaving with a razor can irritate your skin and makeit easier to develop an infection. At the time of your surgery: Speak up if someone tries to shave you with a razor before surgery. Ask why you need to be shaved and talk with your surgeon if you have any concerns. Ask if you will get antibiotics before surgery. After your surgery: Make sure that your healthcare providers clean their hands before examining you, either with soap and water or an alcohol-based hand rub. If you do not see your providers clean their hands, please ask them to do so. Family and friends who visit you should not touch the surgical wound or dressings. Family and friends should clean their hands with soap and water or an alcohol- based hand rub beforeand after visiting you. If you do not see them clean their hands, ask them to clean their hands. What do I need to do when I go home from the hospital? Before you go home, your doctor or nurse should explain everything you need to know about taking care of your wound. Make sure you understand how to care for your wound before you leave the hospital. Always clean your hands before and after caring for your wound. Before you go home, make sure you know who to contact if you have questions or problems after you get home. If you have any symptoms of an infection, such as redness and pain at the surgery site, drainage, or fever, call your doctor immediately. If you have additional questions, please ask your doctor or nurse. Developed and co-sponsored by The Society for Healthcare Epidemiology of [place] ([place]); InfectiousDiseases Society of [place] (IDSA); [facility] [place] [facility]; Association for Professionals inInfection Control and Epidemiology (APIC); Centers for Disease Control and Prevention (CDC); and The Joint Commission. This information is not intended to replace advice given to you by your health care provider. Make sure you discuss any questions you have with your health care provider. , ANESTHESIA - COMMON SIDE EFFECTS (if present, these should resolve within 24 hours) TIREDNESS SHIVERING DIZZINESS DRY MOUTH MILD NAUSEA/VOMITING SORE THROAT OR HOARSENESS MILD PAIN OR DISCOMFORT IS NORMAL CALL THE SURGEON DAY OR NIGHT You have nausea or vomiting that doesn???t go away by the next morning. You experience severe pain not relieved by suggested medications. Thank you for letting us care for you. documented in this encounter Miscellaneous Notes * Plan of Care - Cady Kellogg RN - 08/11/2025 1:49 PM EDT Problem: 4M's of Age Friendly Care Goal: What matters to patient and family Outcome: Adequate for Discharge Goal: Mentation Outcome: Adequate for Discharge Goal: Mobility Outcome: Adequate for Discharge Goal: Medication Outcome: Adequate for Discharge Problem: Potential for anxiety Description: Related to: Procedure Goal: Patient verbalizes an understanding of planned interventions and/or demonstrates signs of decreased anxiety. Outcome: Adequate for Discharge Problem: Potential for alteration in skin integrity Description: Related to: Procedure Goal: Pre-op skin integrity will be maintained. Outcome: Adequate for Discharge Problem: Pain Management Goal: The patient's stated pain goal will be reached and maintained. Outcome: Adequate for Discharge Problem: Safety: Fall Risk Description: Related to: Procedure Goal: Patient will be free from falls. Outcome: Adequate for Discharge Problem: Knowledge deficit of how to take opiate medications/wean from use Goal: Patient will understand risk of dependency to opiate medication Outcome: Adequate for Discharge Problem: Patient experience side effects from opiate medication Goal: Symptom management of side effects Outcome: Adequate for Discharge Problem: Pain Management Description: Related to: Procedure Goal: The patient's stated pain goal will be reached and maintained. Outcome: Adequate for Discharge Problem: Potential for altered respiratory status. Description: Related to: Sedation/Anesthesia Goal: Patient will remain free of respiratory complications. Outcome: Adequate for Discharge Problem: Bleeding Description: Related to: Procedure Goal: Post-op dressing will remain clean and dry. Outcome: Adequate for Discharge Goal: Patient will have no signs/symptoms of post-procedure bleeding. Outcome: Adequate for Discharge Goal: Access site will be free of hematoma/bleeding. Outcome: Adequate for Discharge Problem: Potential for post-op nausea/vomiting Description: Related to procedure Goal: Patient will be free of post-op nausea/vomiting or nausea/vomiting will be controlled. Outcome: Adequate for Discharge Problem: Potential for altered tissue perfusion-contrast reaction/renal impairment Description: Related to: Contrast administration Goal: Patient will be free of contrast reaction and GFR will remain baseline. Outcome: Adequate for Discharge Problem: Potential for alteration in skin integrity Goal: Skin integrity is maintained or improved Outcome: Adequate for Discharge Problem: Alteration in circulation/neurovascular status Goal: Circulation/neurovascular status will be maintained. Outcome: Adequate for Discharge Problem: Safety: Fall Risk Goal: Patient will be free from falls. Outcome: Adequate for Discharge Problem: Thermoregulation Goal: Patient's temperature will be greater than 96.8F at discharge. Outcome: Adequate for Discharge * Plan of Care - Cady Kellogg RN - 08/11/2025 8:06 AM EDT Problem: 4M's of Age Friendly Care Goal: What matters to patient and family Outcome: Adequate for Discharge Goal: Mentation Outcome: Adequate for Discharge Goal: Mobility Outcome: Adequate for Discharge Goal: Medication Outcome: Adequate for Discharge Problem: Potential for anxiety Description: Related to: Procedure Goal: Patient verbalizes an understanding of planned interventions and/or demonstrates signs of decreased anxiety. Outcome: Adequate for Discharge Problem: Potential for alteration in skin integrity Description: Related to: Procedure Goal: Pre-op skin integrity will be maintained. Outcome: Adequate for Discharge Problem: Pain Management Goal: The patient's stated pain goal will be reached and maintained. Outcome: Adequate for Discharge Problem: Safety: Fall Risk Description: Related to: Procedure Goal: Patient will be free from falls. Outcome: Adequate for Discharge documented in this encounter Plan of Treatment Upcoming Encounters Date Type Department Care Team (Late st Contact Info) Description 08/31/2025 4:00 PM EDT Appointment [facility] Physical Therapy [address] [place] [address] Collin Traore, PT 09/04/2025 10:00 AM EDT [address] [place] [address] Virginia Bagley, PT [address] [place] [phone] 09/07/2025 4:00 PM EDT Appointment [facility] Physical Therapy [address] [place] [address] Collin Traore, PT 09/11/2025 10:00 AM EDT Appointment [facility] Physical Therapy [address] [place] [address] Virginia Bagley, PT [address] [place] [phone] 09/14/2025 4:00 PM EDT Appointment [address] [place] [address] Collin Traore, PT 09/18/2025 10:00 AM EDT Appointment [facility] Physical Therapy [address] [place] [address] Virginia Bagley, PT [address] [place] [phone] 09/19/2025 9:00 AM EDT Office Visit [facility] [address] [place] [phone] Yobany Roberts DO [address] [place] [address] 2025 4:00 PM EDT Appointment [facility] Physical Therapy [address] [place] [address] Collin Traore, PT 10/03/2025 9:30 AM EST Office Visit [facility] [address] [address] Mehul Ruiz APRN [address] [place] [address] 10/04/2025 8:00 AM EST Office Visit [facility] [address] [address] Gabe Spencer MD [address] [address] Scheduled Orders Name Type Priority Associated Diagnoses Orde r Schedule EK EKG 12 LEAD Imaging Cardiology Routine Preop testing 1 Occurrences starting 07/27/2025 until 07/27/2026 documented as of this encounter Procedures Procedure Name Priority Date/Time Associated Diagnosis Comments NM ARTHROSCOPY KNEE W/LYSIS ADHESIONS W/WO MANJ SPX 08/11/2025 11:30 AM EDT Status post total knee replacement, right US ANES GUIDANCE FOR NERVE BLOCK STAT 08/11/2025 10:38 AM EDT GLUCOSE METER POC Routine 08/11/2025 8:4 1 AM EDT documented in this encounter Results * US ANES GUIDANCE FOR NERVE BLOCK (08/11/2025 10:38 AM EDT) Narrative [facility]oby - 08/11/2025 10:38 AM EDT Ultrasound guided nerve block performed by Anesthesiologist. The study image(s) are for reference only and will not be interpreted by a Radiologist. Refer to the Anesthesia procedure note for image description and procedure details. us Leonard Delgado DO IMG US ORDERABLES Final Res ult * (ABNORMAL) GLUCOSE METER POC (08/11/2025 8:41 AM EDT) Glucose Meter POC 102(H) 70 - 100 mg/dL 08/11/2025 8:42 AM EDT [facility] Sample Type Capillary 08/11/2025 8:42 AM EDT [facility] Patient Status Non-Critical Patient 08/11/2025 8:42 AM EDT [facility] Blood BLOOD SPECIMEN / Unknown 08/11/2025 8:41 AM EDT 08/11/2025 8:42 AM EDT us Gabe Spencer MD POINT OF CARE TEST ORDERABLES F inal Result [facility] [address] [place] [address] * (ABNORMAL) BASIC METABOLIC PANEL (07/31/2025 9:06 [...] mmol/L 07/31/2025 5:14 PM EDT [facility], [facility] Anion Gap 13 7 - 16 mmol/L 07/31/2025 5:14 PM EDT [facility], [facility] Calcium 9.9 8.8 - 10.4 mg/dL 07/31/2025 5:14 PM EDT [facility], [facility] Glucose Lvl 120(H) 70 - 99 mg/dL 07/31/2025 5:14 PM EDT [facility], [facility] BUN 17 8 - 23 mg/dL 07/31/2025 5:14 PM EDT [facility], [facility] Creatinine 0.76 0.51 - 1.30 mg/dL 07/31/2025 5:14 PM EDT [facility], [facility] eGFR (CKD-EPIcr 2020) 85 >=60 mL/min/1.7 3 m2 07/31/2025 5:14 PM EDT [facility], [facility] Comment:Estimated GFR was ca lculated using the CKD-EPIcr (2020) equation refit without race. The equation is recommended by the National Kidney Foundation - [place] Society of Nephrology Task Force. Blood VENOUS BLOOD / Unknown Venipuncture / Unknown 07/31/2025 9:06 AM EDT 07/31/2025 9:06 AM EDT us Aryan Law MD CHEMISTRY ORDERABLES Terrie meredith Result [facility], [facility] [address] [facility] , [place] [address] documented in this encounter Visit Diagnoses Diagnosis Status post total knee replacement, right- Primary Preop testing Preoperative examination, unspecified documented in this encounter Admitting Diagnoses Diagnosis Status post total knee replacement, right documented in this encounter Administered Medications Inactive Administered Medications - up to 1 most recent administrations Medication Order MAR Action Action Date Dose Rate Site acetaminophen (TYLENOL) tablet 1,000 mg 1,000 mg, Oral, PREPROCEDURE, 1 dose, Starting on Thu08/11/25 at 0805, Until Thu08/11/25 at 0840, Coanalgesic, Do not give if patient received acetaminophen within the last 6 hours Maximum adult dose of acetaminophen is 4000 mg from all sources in 24 hours., Pre-op (Holding/SDS Meds) Given 08/11/2025 8:40 AM EDT 1,000 mg aprepitant (EMEND) capsule 40 mg 40 mg, Oral, ONCE PREPROCEDURE, 1 dose, On Thu08/11/25 at 0815, Pre-op (Holding/SDS Meds) Given 08/11/2025 8:40 AM EDT 40 mg bupivacaine (MARCAINE/SENSORCAINE) 0.5 % (5 mg/mL) injection 30 mL 30 mL, Perineural, PRN, 2 doses, Starting on Thu08/11/25 at 1038, Until Thu08/11/25 at 1855, For perineural block, For administration during pre-op peripheral block, Pre-op (Holding/SDS Meds) Given 08/11/2025 11:20 AM EDT 30 mL Right Leg dexAMETHasone (DECADRON) injection 4 mg 4 mg, Perineural, ONCE PREPROCEDURE, 1 dose, On Thu08/11/25 at 1045, Pre-op (Holding/SDS Meds) Given 08/11/2025 11:20 AM EDT 4 mg Right Leg droPERidol (INAPSINE) injection 0.625 mg 0.625 mg, Intravenous, PRN, Starting on Thu08/11/25 at 1218, Until Thu08/11/25 at 1855, Nausea, First Line Antiemetic, If unable to give Zofran. Give second dose if nausea unrelieved in 10 minutes. May give total of two doses if needed., PACU fentaNYL (SUBLIMAZE) injection 100 mcg 100 mcg, Intravenous, ONCE, 1 dose, On Thu08/11/25 at 1045, Pre-op (Holding/SDS Meds) Given 08/11/2025 11:19 AM EDT 100 mcg fentaNYL (SUBLIMAZE) injection 25 mcg 25 mcg, Intravenous, EVERY 5 MIN PRN, Starting on Thu08/11/25 at 1218, Until Thu08/11/25 at 1855, Pain, For initial pain. Maximum dose not to exceed 100 mcg., PACU Given 08/11/2025 1:13 PM EDT 25 mcg HYDROmorphone (DILAUDID) injection 0.25 mg 0.25 mg, Intravenous, EVERY 10 MIN PRN, Starting on Thu08/11/25 at 1218, Until Thu08/11/25 at 1855, Breakthrough Pain, Do not exceed 2 mg in one hour unless otherwise ordered by the Anesthesia Coordinator For pain unrelieved by fentanyl or oral opioid, PACU lactated ringers infusion Intravenous, at 50 mL/hr, PREPROCEDURE CONTINUOUS, Starting on Thu08/11/25 at 0805, Until Thu08/11/25 at 1855, To be given in SDS/Pre-op Holding Area, Pre-op (Holding/SDS Meds) IV Restarted 08/11/2025 11:30 AM EDT ondansetron (ZOFRAN) injection 4 mg 4 mg, Intravenous, ONCE PRN, 1 dose, Starting on Thu08/11/25 at 1218, Until Thu08/11/25 at 185, Nausea, First Line Antiemetic, Do not give if patient received granisetron (Kytril) or ondansetron (Zofran) within 4 hours., PACU ondansetron (ZOFRAN-ODT) disintegrating tablet 8 mg 8 mg, Oral, ONCE PRN, 1 dose, Starting on Thu08/11/25 at 1218, Until Thu08/11/25 at 1855, Nausea, First Line Antiemetic, Do not give if patient received granisetron (Kytril) or ondansetron (Zofran) within 4 hours., PACU oxyCODONE (ROXICODONE) immediate release tablet 5 mg 5 mg, Oral, EVERY 1 HOUR PRN, Starting on Thu08/11/25 at 1218, Until Thu08/11/25 at 1855, Pain, When tolerating oral intake. Maximum dose not to exceed 10 mg unless otherwise directed by the Anesthesia Coordinator., PACU Given 08/11/2025 12:52 PM EDT 5 mg promethazine (PHENERGAN) 12.5 mg in sodium chloride 0.9% 10 mL injection 12.5 mg, Intravenous, PRN, Starting on Thu08/11/25 at 1218, Until Thu08/11/25 at 1855, Nausea, Second Line Antiemetic, For nausea unrelieved by droperidol or pre-op antiemetic. Begin with lowest dose unless otherwise directed. Give remainder of dose if nausea unrelieved in 20 minutes. Not to exceed 25 mg in one hour unless otherwise ordered by Anesthesia Coordinator. VESICANT , PACU promethazine (PHENERGAN) 6.25 mg in sodium chloride 0.9% 10 mL injection 6.25 mg, Intravenous, PRN, Starting on Thu08/11/25 at 1218, Until Thu08/11/25 at 1855, Nausea, Second Line Antiemetic, For nausea unrelieved by droperidol or pre-op antiemetic. Begin with lowest dose unless otherwise directed. Give remainder of dose if nausea unrelieved in 20 minutes. Not to exceed 25 mg in one hour unless otherwise ordered by Anesthesia Coordinator. VESICANT , PACU documented in this encounter Active and Recently Administered Medications Times are shown in EDT. Scheduled Medication Order 08/09/2025 08/10/2025 08/11/2025 acetaminophen (TYLENOL) tablet 1,000 mg 1,000 mg, Oral, ONCE, 1 dose, On Thu08/11/25 at 1230, Do not give if patient received acetaminophen within the last 6 hours Maximum adult dose of acetaminophen is 4000 mg from all sources in 24 hours., PACU 1230 (Due) aprepitant (EMEND) capsule 40 mg (COMPLETED) 40 mg, Oral, ONCE PREPROCEDURE, 1 dose, On Thu08/11/25 at 0815, Pre-op (Holding/SDS Meds) 0840 (Given - Provid er: Cady Kellogg RN) ceFAZolin 2 g in sterile water 9 mL IVP (COMPLETED) 2 g, Intravenous, ONCE PREPROCEDURE, 1 dose, On Thu08/11/25 at 0815, Administer 30 minutes prior to surgery for patient body weight less than (<) 120 kg Draw up 5.5 mL of Sterile Water for Injection and inject into one ceFAZolin 2 g vial. Shake vials until powder is completely dissolved. Then further dilute to a total volume of 20 mL for IV push administration. Administer intravenous push (IVP) over a period of 3 to 5 minutes., Reason for Therapy: Surgical Prophylaxis, Pre-op (Antibiotic) 1137 (New Bag - Prov ider: Khushboo Godinez, EDWIN) dexAMETHasone (DECADRON) injection 4 mg (COMPLETED) 4 mg, Perineural, ONCE PREPROCEDURE, 1 dose, On Thu08/11/25 at 1045, Pre-op (Holding/SDS Meds) 1120 (Given - Provid er: Maureen Cormier RN) fentaNYL (SUBLIMAZE) injection 100 mcg (COMPLETED) 100 mcg, Intravenous, ONCE, 1 dose, On Thu08/11/25 at 1045, Pre-op (Holding/SDS Meds) 1119 (Given - Provid er: Maureen Cormier RN) ketorolac (TORADOL) injection 15 mg 15 mg, Intravenous, ONCE, 1 dose, On Thu08/11/25 at 1230, Give slow IV push if patient did not receive NSAID pre-op or in OR For IV Administration: Give undiluted over at least 15 seconds. Maximum IV dose is 30mg. For IM Administration: Give undiluted, slowly and deeply into the muscle., PACU 1230 (Hold - Provide r: Cady Kellogg RN - Reason: Other - Comment: given in OR) PRN Medication Order 08/09/2025 08/10/2025 08/11/2025 acetaminophen (TYLENOL) tablet 1,000 mg (COMPLETED) 1,000 mg, Oral, PREPROCEDURE, 1 dose, Starting on Thu08/11/25 at 0805, Until Thu08/11/25 at 0840, Coanalgesic, Do not give if patient received acetaminophen within the last 6 hours Maximum adult dose of acetaminophen is 4000 mg from all sources in 24 hours., Pre-op (Holding/SDS Meds) 0840 (Given - Provid er: Cady Kellogg RN) bupivacaine (MARCAINE/SENSORCAINE) 0.5 % (5 mg/mL) injection 30 mL 30 mL, Perineural, PRN, 2 doses, Starting on Thu08/11/25 at 1038, Until Thu08/11/25 at 1855, For perineural block, For administration during pre-op peripheral block, Pre-op (Holding/SDS Meds) 1120 (Given - Provid er: Maureen Cormier RN) droPERidol (INAPSINE) injection 0.625 mg 0.625 mg, Intravenous, PRN, Starting on Thu08/11/25 at 1218, Until Thu08/11/25 at 1855, Nausea, First Line Antiemetic, If unable to give Zofran. Give second dose if nausea unrelieved in 10 minutes. May give total of two doses if needed., PACU fentaNYL (SUBLIMAZE) injection 25 mcg 25 mcg, Intravenous, EVERY 5 MIN PRN, Starting on Thu08/11/25 at 1218, Until Thu08/11/25 at 1855, Pain, For initial pain. Maximum dose not to exceed 100 mcg., PACU 1252 (Given - Provid er: Cady Kellogg RN)1257 (Given - Provider: Cady Kellogg RN)1306 (Given - Provider: Cady Kellogg RN)1313 (Given - Provider: Cady Kellogg RN) HYDROmorphone (DILAUDID) injection 0.25 mg 0.25 mg, Intravenous, EVERY 10 MIN PRN, Starting on Thu08/11/25 at 1218, Until Thu08/11/25 at 1855, Breakthrough Pain, Do not exceed 2 mg in one hour unless otherwise ordered by the Anesthesia Coordinator For pain unrelieved by fentanyl or oral opioid, PACU lactated ringers infusion Intravenous, at 50 mL/hr, PREPROCEDURE CONTINUOUS, Starting on Thu08/11/25 at 0805, Until Thu08/11/25 at 1855, To be given in SDS/Pre-op Holding Area, Pre-op (Holding/SDS Meds) 0848 (New Bag - Prov ider: Cady Kellogg RN)1129 (IV Paused - Provider: Khushboo Godinez CRNA - Comment: Switch to gravity)1130 (IV Restarted - Provider: Khushboo Godinez CRNA)1151 (Anesthesia Volume Adjustment - Provider: Khushboo Godinez CRNA)1456 (Stopped - Provider: Cady Kellogg RN) ondansetron (ZOFRAN) injection 4 mg(Linked Group 1) 4 mg, Intravenous, ONCE PRN, 1 dose, Starting on Thu08/11/25 at 1218, Until Thu08/11/25 at 1855, Nausea, First Line Antiemetic, Do not give if patient received granisetron (Kytril) or ondansetron (Zofran) within 4 hours., PACU ondansetron (ZOFRAN-ODT) disintegrating tablet 8 mg(Linked Group 1) 8 mg, Oral, ONCE PRN, 1 dose, Starting on Thu08/11/25 at 1218, Until Thu08/11/25 at 1855, Nausea, First Line Antiemetic, Do not give if patient received granisetron (Kytril) or ondansetron (Zofran) within 4 hours., PACU oxyCODONE (ROXICODONE) immediate release tablet 5 mg 5 mg, Oral, EVERY 1 HOUR PRN, Starting on Thu08/11/25 at 1218, Until Thu08/11/25 at 1855, Pain, When tolerating oral intake. Maximum dose not to exceed 10 mg unless otherwise directed by the Anesthesia Coordinator., PACU 1252 (Given - Provid er: Cady Kellogg RN) promethazine (PHENERGAN) 12.5 mg in sodium chloride 0.9% 10 mL injection(Linked Group 2) 12.5 mg, Intravenous, PRN, Starting on Thu08/11/25 at 1218, Until Thu08/11/25 at 1855, Nausea, Second Line Antiemetic, For nausea unrelieved by droperidol or pre-op antiemetic. Begin with lowest dose unless otherwise directed. Give remainder of dose if nausea unrelieved in 20 minutes. Not to exceed 25 mg in one hour unless otherwise ordered by Anesthesia Coordinator. VESICANT , PACU promethazine (PHENERGAN) 6.25 mg in sodium chloride 0.9% 10 mL injection(Linked Group 2) 6.25 mg, Intravenous, PRN, Starting on Thu08/11/25 at 1218, Until Thu08/11/25 at 1855, Nausea, Second Line Antiemetic, For nausea unrelieved by droperidol or pre-op antiemetic. Begin with lowest dose unless otherwise directed. Give remainder of dose if nausea unrelieved in 20 minutes. Not to exceed 25 mg in one hour unless otherwise ordered by Anesthesia Coordinator. VESICANT , PACU Linked Groups Order Group 1: ondansetron (ZOFRAN) injection 4 mgJump to med 4 mg, Intravenous, ONCE PRN, 1 dose, Starting on Thu08/11/25 at 1218, Until Thu08/11/25 at 1855, Nausea, First Line Antiemetic, Do not give if patient received granisetron (Kytril) or ondansetron (Zofran) within 4 hours., PACU Or ondansetron (ZOFRAN-ODT) disintegrating tablet 8 mgJump to med 8 mg, Oral, ONCE PRN, 1 dose, Starting on Thu08/11/25 at 1218, Until Thu08/11/25 at 1855, Nausea, First Line Antiemetic, Do not give if patient received granisetron (Kytril) or ondansetron (Zofran) within 4 hours., PACU Group 2: promethazine (PHENERGAN) 6.25 mg in sodium chloride 0.9% 10 mL injectionJump to med 6.25 mg, Intravenous, PRN, Starting on Thu08/11/25 at 1218, Until Thu08/11/25 at 1855, Nausea, Second Line Antiemetic, For nausea unrelieved by droperidol or pre-op antiemetic. Begin with lowest dose unless otherwise directed. Give remainder of dose if nausea unrelieved in 20 minutes. Not to exceed 25 mg in one hour unless otherwise ordered by Anesthesia Coordinator. VESICANT , PACU Or promethazine (PHENERGAN) 12.5 mg in sodium chloride 0.9% 10 mL injectionJump to med 12.5 mg, Intravenous, PRN, Starting on Thu08/11/25 at 1218, Until Thu08/11/25 at 1855, Nausea, Second Line Antiemetic, For nausea unrelieved by droperidol or pre-op antiemetic. Begin with lowest dose unless otherwise directed. Give remainder of dose if nausea unrelieved in 20 minutes. Not to exceed 25 mg in one hour unless otherwise ordered by Anesthesia Coordinator. VESICANT , PACU documented in this encounter Orders Medications Ordered That Raman ht Not Have Been Administered Count Last Ordered Date First Ordered Date acetaminophen (TYLENOL) tablet 1,000 mg 1 0 08/11/2025 ceFAZolin 2 g in sterile water 9 mL IVP 1 0 08/11/2025 droPERidol (INAPSINE) injection 0.625 mg 1 08/11/2025 HYDROmorphone (DILAUDID) injection 0.25 mg 1 08/11/2025 ketorolac (TORADOL) injection 15 mg 1 08/11 ondansetron (ZOFRAN) injection 4 mg 1 09/19 /2025 ondansetron (ZOFRAN-ODT) dis integrating tablet 8 mg 1 08/11/2025 promethazine (PHENERGAN) 12. 5 mg in sodium chloride 0.9% 10 mL injection 1 08/11/2025 promethazine (PHENERGAN) 6.2 5 mg in sodium chloride 0.9% 10 mL injection 1 08/11/2025 Discharge Count Last Ordered Date First Orde red Date DISCHARGE PATIENT 1 08/11/2025 documented in this encounter Care Teams Interactive Video Technician Relationship Specialty Start Date End Date Elisabeth Mills [address] [place] [address] [address] MIGUEL MOYER [id number] PCP - General 12/18/10 documented as of this encounter
--- OUTSIDE RECORDS SUMMARY | 2025-08-11 10:40 | XMS_ITS | Encounter Summary ---
Author Organization [place] [address] Care Team Providers Care Manager Philosophy Name Role Phone Elisabeth Mills Primary Care Provider [phone] Reason for Visit * Auth/Cert/Inpt Specialty Diagnoses / Procedures Referred By Junito trivedi Referred To Contact Diagnoses Status post total knee replacement, right Status post total knee replacement, right [Z96.651] Procedures OH ARTHROSCOPY KNEE W/LYSIS ADHESIONS W/WO MANJ SPX RIGHT KNEE ARTHROSCOPY , LYSIS OF ADHESIONS Referral ID Status Reason Start Date Expiration Date Visits Re quested Visits Authorized [id number] 1 1 Encounter Details Date Type Department Care Team (Late Contact Info) Description 08/11/2025 10:40 AM EDT Ancillary Procedure FTT SAME DAY SURGERY [address] [place] [address] Gabe Spencer MD [address] [place] [address] Social History Tobacco Use Types Packs/Day Years [...] Encounters Date Type Department Care Team (Late Contact Info) Description 08/31/2025 4:00 PM EDT Appointment [facility] Physical Therapy [place] [address] [place] [address] Collin Traore, PT 09/04/2025 10:00 AM EDT Appointment [place] [address] [place] [address] Virginia Bagley, PT [address] [place] [phone] 09/07/2025 4:00 PM EDT Appointment [place] [address] [place] [address] Collin Traore, PT 09/11/2025 10:00 AM EDT Appointment [place] [address] [place] [address] Virginia Bagley, PT [address] [facility] [place] [place] [phone] 09/14/2025 4:00 PM EDT Appointment [place] [address] [place] [address] Collin Traore, PT 09/18/2025 10:00 AM EDT Appointment [place] [address] [place] [address] Virginia Bagley, PT [address] [place] [phone] 09/19/2025 9:00 AM EDT Office Visit [facility] [address] [place] [phone] Yobany Roberts DO [address] [place], [place] [phone] 4:00 PM EDT Appointment [place] [address] [place] [phone] Collin Traore, PT 10/03/2025 9:30 AM EST Office Visit [facility] [address] [place] [phone] Mehul Ruiz, DUAL RATE SUPERVISOR [address] [place], [place] [phone] 10/04/2025 8:00 AM EST Office Visit [facility] [address] [place], [place] [phone] Gabe Spencer MD [address] [place] [address] documented as of this encounter Procedures Procedure Name Priority Date/Time Associated Diagnosis Comments US ANES GUIDANCE FOR NERVE BLOCK STAT 08/11/2025 10:38 AM EDT documented in this encounter Results * US ANES GUIDANCE FOR NERVE BLOCK (08/11/2025 10:38 AM EDT) Narrative LiorrCoby - 08/11/2025 10:38 AM EDT Ultrasound guided nerve block performed by Anesthesiologist. The study image(s) are for reference only and will not be interpreted by a Radiologist. Refer to the Anesthesia procedure note for image description and procedure details. us Leonard Delgado DO IMG US ORDERABLES Final Res ult documented in this encounter Visit Diagnoses Not on filedocumented in this encounter Care Teams Manager Philosophy Relationship Specialty Start Date End Date Elisabeth Mills [address] [facility] [address] [place] [address] PCP - General 12/18/10 documented as of this encounter
--- OUTSIDE RECORDS SUMMARY | 2025-08-11 10:55 | XMS_ITS | Encounter Summary ---
Author Organization [place] [address] Care Team Providers Care Sole Stitcher Hand Name Role Phone Elisabeth Mills Primary Care Provider [phone] Reason for Visit * Auth/Cert/Inpt Specialty Diagnoses / Procedures Referred By Junito trivedi Referred To Contact Diagnoses Status post total knee replacement, right Status post total knee replacement, right [Z96.651] Procedures [place] ARTHROSCOPY KNEE W/LYSIS ADHESIONS W/WO MANJ SPX RIGHT KNEE ARTHROSCOPY , LYSIS OF ADHESIONS Referral ID Status Reason Start Date Expiration Date Visits Re quested Visits Authorized [id number] 1 1 Encounter Details Date Type Department Care Team (Late st Contact Info) Description 08/11/2025 10:55 AM EDT - 08/11/2025 12:15 PM EDT Surgery FTT PERIOP [address] [place] [address] Gabe Spencer MD [address] [place] [phone] KNEE ARTHROSCOPY LYSIS OF ADHESIONS Surgery Details Date/Time Status Location OR Service Patient Class Case Class Case Type Trauma Case? 08/11/2025 10:55 AM Posted FTT MAIN OR FTT OR 05 Orthopedics Same Day Surgery Elective Panel 1 Procedure LRB Anes Op Region Wound Class Comments KNEE ARTHROSCOPY LYSIS OF ADHESIONS Right General w/Block Knee Clean RIGHT KNEE ARTHROSCOPY , LYSIS OF ADHESIONS Surgeon Surgeon Role Service Panel Gabe Spencer MD Primary Orthopedics 1 documented in this encounter Social History Tobacco Use Types Packs/Day Years [...] Sign Reading Time Taken Comments Blood Pressure 147/71 08/11/2025 8:04 AM EDT Pulse - - Temperature 35.8 C (96.5 F) 08/11/2025 8:04 AM EDT Respiratory Rate 18 08/11/2025 8:04 AM EDT Oxygen Saturation 100% 08/11/2025 8:04 AM EDT Inhaled Oxygen Concentration - - Weight 104.3 kg (230 lb) 07/27/2025 2:55 PM EDT Height 162.6 cm (5' 4 ) 07/27/2025 2:55 PM EDT Body Mass Index 39.48 07/27/2025 2:55 PM EDT documented in this encounter Discharge Instructions * Discharge Instructions* Gabe Spencer MD - 08/11/2025 10:38 AM EDT Images from the original note were not included. +++++++++++++++++++++++++++++++++++++++++++++++++++++++++++++++++++ [facility] Discharge Instructions - Following Anesthesia We appreciate [...] our office at . Get Well Soon! [facility] +++++++++++++++++++++++++++++++++++++++++++++++++++++++++++++++++++ Home Care Instructions following Orthopaedic [...] in 7-10 days. 8. Physician's phone number: [phone] 9. 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 Thursday to Thursday takes 1 tablet but [...] Means Destination Comment s Home or Self Half-Way documented in this encounter H&P Notes * Deni Holliday NP - 08/11/2025 8:[address] [facility] History and Physical Name: Radha Sage ADDRESS: [address] [place] [address] : 1955 AGE: 69 y.o. Assessment: Status [...] Knee Replacement; Surgeon: Matt Cerda MD; Location: [facility]; Service: Orthopedics KNEE JOINT MANIPULATION Right 07/14/2024 Right Knee Manipulation Under Anesthesia; Surgeon: Matt Cerda MD; Location: [facility]; Service: Orthopedics ORTHOPEDIC SURGERY [facility] 2023 Total knee replacement Prior to Admission medications Medication Sig Start Date End Date Last Dose Authorizing Provider amLODIPine (NORVASC) 2.5 mg Oral Tablet Take 1 Tablet by mouth 2 times daily. 06/20/24 Taking Yobany Roberts DO aspirin 81 mg Oral Tablet, Chewable Take 1 Tablet by mouth daily. 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 Thursday to Thursday takes 1 tablet but [...] nursing note reviewed. Exam conducted with a used car sales manager present. Constitutional: General: She is not in [...] of adhesions/extensive synovectomy. SURGEON: Gabe Pratt MD BLOCKING MACHINE TENDER: Nia Aguilar NP/TOOL DIE MAKER. Sharepoint Consultant necessary surgery as she actively assisted [...] Gabe Spencer M.D. By: Zander Job ID: [id number] Doc ID: [id number] * Gabe Spencer MD - 08/11/2025 12:31 PM EDT Just got off phone with [facility], discussed surgical findings and answered all questions * Gabe Spencer MD - 08/11/2025 12:30 PM EDT [facility] OPERATIVE/PROCEDURE NOTE Radha Sage August 11, 2025 PRE-OP DIAGNOSIS: Status post total knee replacement, right [Z96.651] POST-OP DIAGNOSIS: Status post total knee replacement, right [Z96.651] PROCEDURE(S): Procedure(s): RIGHT KNEE ARTHROSCOPY , LYSIS OF ADHESIONS SURGEON(S): Surgeons and Role: * Gabe Spencer MD - Primary BLOCKING MACHINE TENDER: Nia Aguilar NP/TOOL DIE MAKER An speech therapy assistant was necessary as she actively assisted with instrumentation, retraction, reduction, and suture management. ANESTHESIA: General w/Block ESTIMATED BLOOD LOSS: approx 5ml or as listed by anesthesia SPECIMEN: * No specimens in log * DISPOSITION/POST PROC COURSE: Stable -> Recovery Room Gabe Spencer MD Date: 08/11/2025 documented in this encounter Nursing Notes * Shobha Lao, TINA - 07/27/2025 3:07 PM EDT Images from the original note were not included. PREPARING FOR YOUR SURGERY Date of Surgery: 08/11/25 Arrival time: Your surgeon may have already provided this, check your paperwork from the office. Ifnot received, call your surgeon's office. Location: [facility] Get EKG/labs prior to surgery Medications on [...] of surgery No Losartan day of surgery [facility] JESSICA DIABETIC INSTRUCTIONS-ORAL MEDS: Day before Surgery:Take all [...] No alcohol 24 hours prior to surgery. Bean Viner It is important to have a Bean Viner, someone who is 18 years or older, [...] concern, please reach out to our department [phone]. Hygiene [place] your teeth and gargle the morning of surgery. Shower the morning of surgery or the night before. Do not wear makeup (including eye makeup) lotion, powder, deodorant, perfume, or cologne. Do not shave the operative extremity or near the operative area. Remove nail togolese prior to surgery. This includes artificial nails and gel nail togolese. Personal Items Wear clean, simple, loose-fitting clothing (no jeans) and sturdy shoes (no flip flops, slides or crocs) to the hospital. Do not bring unnecessary valuables with you. It is policy that [facility] does not assume responsibility for lost, stolen [...] your Living Will and/or Durable Power of Bee Worker for Healthcare. If you are having surgery [...] time Notify your surgeon and Pre-admission testing ([phone]) if you have any changes in your healthconditions or if any new medications are ordered between now and surgery.. Questions or Concerns? If you have any questions or concerns, feel free to call the Pre-Admission testing department at [phone]. We want to make sure you feel safe and have an excellent experience while you are here. Do not reply to this message through [employer] as it may not be answered promptly. Same Day Surgery Unit - [facility] at [phone]; Please get dropped off at Main Entrance 1A Stopat front line leader and they will direct you to registration. Parking will be to the left of the buildingin the parking lot and parking garage. After surgery, you will be discharged from surgery discharge door 4. - [address] [place] [address]. DOORS OPEN AT 6:00 AM THU-THU AND [...] [place] ([place]); InfectiousDiseases Society of [place] (IDSA); [facility] [facility] [employer]; Association for Professionals inInfection Control [...] Info) Description 08/31/2025 4:00 PM EDT Appointment [facility] Physical Therapy [address] [place] [address] Collin Traore, PT 09/04/2025 10:00 AM EDT Appointment [facility] Physical Therapy [address] [place] [address] Virginia Bagley, PT [address] [place] [phone] 09/07/2025 4:00 PM EDT Appointment [facility] Physical Therapy [address] [place] [address] Collin Traore, PT 09/11/2025 10:00 AM EDT Appointment [facility] Physical Therapy [address] [place] [address] Virginia Bagley, PT [address] [place] [phone] 09/14/2025 4:00 PM EDT Appointment [facility] Physical Therapy [address] [place] [address] Collin Traore, PT 09/18/2025 10:00 AM EDT Appointment [facility] Physical Therapy [address] [place] [address] Virginia Bagley, PT [address] [place] [phone] 09/19/2025 9:00 AM EDT Office Visit [facility] [address] [place] [phone] Yobany Roberts DO [address] [place] [address] 2025 4:00 PM EDT Appointment [facility] Physical Therapy [address] [place] [address] Collin Traore, PT 10/03/2025 9:30 AM EST Office Visit [facility] [address] [address] Mehul Ruiz, KAYA [address] [place] [address] 10/04/2025 8:00 AM EST Office Visit [facility] [address] [address] Gabe Spencer MD [address] [address] Scheduled Orders Name Type Priority Associated Diagnoses Orde r Schedule EK EKG 12 LEAD Imaging Cardiology Routine Preop testing 1 Occurrences starting 07/27/2025 until 07/27/2026 documented as of this encounter Procedures Procedure Name Priority Date/Time Associated Diagnosis Comments MI ARTHROSCOPY KNEE W/LYSIS ADHESIONS W/WO MANJ SPX 08/11/2025 11:30 AM EDT Status post total knee replacement, right US ANES GUIDANCE FOR NERVE BLOCK STAT 08/11/2025 10:38 AM EDT GLUCOSE METER POC Routine 08/11/2025 8:4 1 AM EDT documented in this encounter Results * US ANES GUIDANCE FOR NERVE BLOCK (08/11/2025 10:38 AM EDT) Narrative Coby Rodriguez - 08/11/2025 10:38 AM EDT Ultrasound guided [...] - 100 mg/dL 08/11/2025 8:42 AM EDT [facility] Sample Type Capillary 08/11/2025 8:42 AM EDT [facility] Patient Status Non-Critical Patient 08/11/2025 8:42 AM EDT [facility] Blood BLOOD SPECIMEN / Unknown 08/11/2025 8:41 AM EDT 08/11/2025 8:42 AM EDT Gabe Spencer MD POINT OF CARE TEST ORDERABLES F inal Result [facility] [address] [place] [address] * (ABNORMAL) BASIC METABOLIC PANEL (07/31/2025 9:06 AM EDT) Sodium 139 136 - 145 mmol/L 07/31/2025 5:14 PM EDT [facility] Potassium 4.3 3.5 - 5.0 mmol/L 07/31/2025 5:14 PM EDT [facility] Chloride 100 98 - 107 mmol/L 07/31/2025 5:14 PM EDT [facility] Total CO2 26 22 - 29 mmol/L 07/31/2025 5:14 PM EDT [facility] Anion Gap 13 7 - 16 mmol/L 07/31/2025 5:14 PM EDT [facility] Calcium 9.9 8.8 - 10.4 mg/dL 07/31/2025 5:14 PM EDT [facility] Glucose Lvl 120(H) 70 - 99 mg/dL 07/31/2025 5:14 PM EDT [facility] BUN 17 8 - 23 mg/dL 07/31/2025 5:14 PM EDT [facility] Creatinine 0.76 0.51 - 1.30 mg/dL 07/31/2025 5:14 PM EDT [facility] eGFR (CKD-EPIcr 2020) 85 >=60 mL/min/1.7 3 m2 07/31/2025 5:14 PM EDT [facility] Comment:Estimated GFR was ca lculated using the CKD-EPIcr (2020) equation refit without race. The equation is recommended by the National Kidney Foundation - [place] Society of Nephrology Task Force. Blood VENOUS BLOOD / Unknown Venipuncture / Unknown 07/31/2025 9:06 AM EDT 07/31/2025 9:06 AM EDT us Aryan Law MD CHEMISTRY ORDERABLES Terrie meredith Result [facility] [address] [facility] , [place] [address] documented in this encounter Visit Diagnoses Diagnosis Status post total knee replacement, right- Primary Preop testing Preoperative examination, unspecified Status post total knee replacement, right documented in this encounter Admitting Diagnoses Diagnosis [...] 1137 (New Bag - Prov ider: Khushboo Godinez CRNA) dexAMETHasone (DECADRON) injection 4 mg (COMPLETED) 4 [...] Thu08/11/25 at 185, Nausea, First Line Antiemetic, If unable to [...] 08/11 ondansetron (ZOFRAN) injection 4 mg 1 08/11 ondansetron (ZOFRAN-ODT) dis integrating tablet 8 mg 1 08/11/2025 promethazine (PHENERGAN) 12. 5 mg in sodium chloride 0.9% 10 mL injection 1 08/11/2025 promethazine (PHENERGAN) 6.2 5 mg in sodium chloride 0.9% 10 mL injection 1 08/11/2025 Discharge Count Last Ordered Date First Orde red Date DISCHARGE PATIENT 1 08/11/2025 documented in this encounter Care Teams Sole Stitcher Hand Relationship Specialty Start Date End Date Elisabeth Mills [address] [place] [address] [address] [place] [address] PCP - General 12/18/10 documented as of this encounter
--- OUTSIDE RECORDS SUMMARY | 2025-08-11 11:30 | XMS_ITS | Encounter Summary ---
Author Organization [place] [address] Care Team Providers Care Health Researcher Name Role Phone Gene Elisabeth Carbone Primary Care Provider [phone] Reason for Visit * Auth/Cert/Inpt Specialty Diagnoses / Procedures Referred By Contchelsea t Referred To Contact Diagnoses Status post total knee replacement, right Status post total knee replacement, right [Z96.651] Procedures VT ARTHROSCOPY KNEE W/LYSIS ADHESIONS W/WO MANJ SPX RIGHT KNEE ARTHROSCOPY , LYSIS OF ADHESIONS Referral ID Status Reason Start Date Expiration Date Visits Re quested Visits Authorized [id number] 1 1 Encounter Details Date Type Department Care Team (Late st Contact Info) Description 08/11/2025 11:30 AM EDT Anesthesia Event [facility] PERIOP [address] [place] [address] Leonard Delgado DO [address] [place] [id number] Wesley Boyer, ELECTRIC METER REPAIRER [address] [place] [address] [id number] Anesthesia Record Procedure Summary Procedure Name Responsible Anesthesiologist Anesthesia Start Time Anesthesia Stop Time KNEE ARTHROSCOPY LYSIS OF ADHESIONS (Right: Knee) Leonard Delgado DO 08/11/25 1130 08/11/25 1234 Events Date Time Event Comment 08/11/2025 1039 1124 Block/ Injection Placed 1130 AN Equip Check 1130 An Start 1130 An Start Data 1130 Immediate Pre Anesthetic Ass es 1133 An Induction 1134 An LMA 1135 Anesthesia Ready 1150 Time out 1150 Incision 1224 An Emergence 1229 Airway Removed 1231 an stop data 1234 Handoff I completed my SBAR handoff to the receiving nurse which has included the followin. Identification of the patient, family, or patient surrogate 2. Identification of the responsible practitioner 3. Pertinent medical history 4. Surgical procedure and reason for procedure 5. Intraoperative anesthetic management 6. All current lines, drains and respiratory support. 7. Outstanding follow up orders (X-rays, consults etc) 8. Expectations/Plans for the early post-procedure period 9. 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 Lines, Drains, and Airways Type Details Placement Removal Peripheral IV 08/11/25; 0849; Left ; Hand; 2; 08/11/25; 1402 08/11/25 0849 by Cady Kellogg RN 08/11/25 1402 by Cady Kellogg, TINA Airway Device: LMA; Size: 4 ; Placement Date: 08/11/25; Placement Time: 1134 (created via procedure documentation); Removal Date: 08/11/25; Removal Time: 1229 08/11/25 1134 by Khushboo Godinez CRNA 08/11/25 1229 by Khushboo Godinez CRNA Incision/Wound 08/11/25; 1150; Knee ; Right; 08/11/25; 18508/11/25 1150 by Gita Velazquez RN 08/11/25 185 by Discharge Provider, Automatic documented in this encounter Social History Tobacco [...] on file documented as of this encounter Procedure Notes * Khushboo Gdoinez CRNA - 08/11/2025 11:40 AM EDTAssociated Order(s): Airway Intraop Airway Placement: Date/Time: 08/11/2025 11:34 AM Induction type: IV Mask size: Standard adult Pre-Oxygenation: Standard Mask ventilation: Easy mask ventilation Airway type: LMA Topical Anesthetic/Lubricant: Lubricant jelly Airway location: Oral Device size: 4 Secured by: Tape Measured from: Lips Placement verified: Auscultation, End tidal CO2 and Symmetric chest wall motion Condition: Atraumatic and Unchanged Insertion attempts: 1 Title: ELEVATOR REPAIRER APPRENTICE * Lit Hoang MD - 08/11/2025 11:33 AM EDTAssociated Order(s): Peripheral Block by Anesthesia Peripheral Block by Anesthesia Procedure Date/Time: 08/11/2025 11:24 AM Patient location during procedure: OR holding area Reason for block: at surgeon's request and post-op pain management Staff and Pre-procedure checks Anesthesiologist: Lit Hoang MD Performed: anesthesiologist Preanesthetic Checklist: Allergies confirmed, Block plan confirmed, Necessary block equipment present, Supplemental O2 applied, if needed, Anticoagulant confirmed, Block site marked, Patient identified- 2 criteria, Surgical procedure consent verified, Aseptic technique used, Drug/solution labeled, YARI recommended monitors applied, IV access functioning, Sedation given, if needed and Resuscitation equipment available Immediate perianesthetic assessment completed: Yes Patient position: Supine Prep: Chloraprep and Patient Draped Monitoring: Mental status assessed, O2 Sat, EKG and BP Position: Peripheral Block Block type: Adductor Canal Block Laterality: Right Injection technique: single-shot Pain pump: no pain pump placed Medication(s) Administered: Fentanyl (SUBLIMAZE), Dexamethasone (DECADRON) and Bupivacaine (MARCAINE) 0.5% Needle Needle type: Stimuplex Needle size: 20Gx4 Nerve localization: ultrasound guidance (Adductor Canal block- Sartorius and Vastus Medialis muscle, Femoral artery and Saphenous nerve are identified; the tip of the needle and spread of the local anesthetic around the Saphenous nerve are visualized. Ultrasound image documentation is attached/scanned in epic chart. No anatomical pathology noted during block placement.) Adductor Canal block- Sartorius and Vastus Medialis muscle, Femoral artery and Saphenous nerve are identified; the tip of the needle and spread of the local anesthetic around the Saphenous nerve are visualized. Ultrasound image documentation is attached/scanned in epic chart. No anatomical pathology noted during block placement. Ultrasound probe: linear Ultrasound needle approach: in-plane Assessment Block success: a full evaluation pending Events: Uneventful Heart rate change: no Blood aspirated: no Paresthesia pain: absent Resistance on injection: normal Intermittent incremental injection LA at 5ml Ultrasound Image of the block is attached/scanned to the epic chart. documented in this encounter OR Notes * Anesthesia Postprocedure Evaluation - Leonard Delgado DO - 08/11/2025 1:43 PM EDT Post-Anesthesia Evaluation Note Patient Name: Radha Sage Patient Date: August 11, 2025 Post-Anesthesia Evaluation Patient Location: PACU Post op vitals: stable Difficult airway: no Nausea controlled: yes Level of consciousness: awake, alert and oriented Post anesthesia pain: adequate analgesia Airway patency: patent Respiratory status: room air and spontaneous ventilation Cardiovascular status: stable and BP within 20% of baseline Hydration status: euvolemic Temperature: Normothermia Perioperative complications: NONE Vitals Value Taken Time BP 138/66 08/11/25 13:28 Resp 20 08/11/25 13:28 SpO2 99 % 08/11/25 13:28 Temp 36.6 ??C (97.8 ??F) 08/11/25 13:28 Pulse 71 08/11/25 13:28 * Anesthesia Preprocedure Evaluation - Leonard Delgado DO - 08/11/2025 10:32 AM EDT Pre-Anesthesia Evaluation Note Patient Name: Radha Sage Sex: female Patient : 1955 Age: 69 y.o. Patient Date: August 11, 2025 Procedure(s): KNEE ARTHROSCOPY LYSIS OF ADHESIONS (Right: Knee) Vitals: 08/11/25 0804 BP: 147/71 Resp: 18 Temp: 35.8 ??C (96.5 ??F) SpO2: 100% Anesthesia Evaluation Previous anesthesia. History of anesthetic complications: PONV Airway Mallampati: II TM distance: >3 FB Neck ROM: full Dental - normal exam Pulmonary (+) Sleep apnea on CPAP Physical exam: Comments: Clear to auscultation (-) no URI cough sputum Cardiovascular (+)Hypertension: well controlled Hyperlipidemia Peripheral arterial disease (Carotid US 06/28/24 bilateral 1-39% ICA stenosis): Carotid Disease Physical exam: Rhythm: regular Neuro/Psych (-) seizures, no cerebrovascular disease and no peripheral neuropathy GI/Hepatic/Renal (-) no GERD/PUD, no cirrhosis, no chronic kidney disease Endo/Other (+)Obese: Severe obesity (BMI 35-39.9) Diabetes mellitus: type 2 Hypothyroidism (-) no cervical pain MARKETING 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 * Left ventricular segmental wall motion is normal. * The left ventricular diastolic function is normal. * Right ventricular systolic function is normal. * Estimated pulmonary artery systolic pressure is 21 mmHg. * There is mild mitral valve regurgitation. Opioids : Naive Body mass index is 39.48 kg/m??. Anesthesia Plan ASA 3 Last solid intake: The patient has not eaten within the last 8 hours. Last clear liquid intake: The patient has not had clear liquids within the last 2 hours. Anesthesia Plan: general and regional Induction: intravenous Monitors: STD PONV Risk Score: 4. Score of 3 or more is High Risk for PONV, combination antiemetic prophylaxis isindicated. Informed consent Anesthetic plan and risks discussed with: patient. Chart Reviewed and patient examined documented in this encounter Miscellaneous Notes * PAT Pre Evaluation for Anesthesia - Wesley Boyer APRN - 08/09/2025 1:01 PM EDT Pre-Anesthesia Evaluation Note Patient Name: Radha Sage Sex: female Patient : 1955 Age: 69 y.o. Patient Date: August 09, 2025 Procedure(s): RIGHT KNEE ARTHROSCOPY , LYSIS OF ADHESIONS Anesthesia Evaluation Previous anesthesia. History of anesthetic complications: PONV Airway Dental Pulmonary (+) Sleep apnea on CPAP Cardiovascular (+)Hypertension: well controlled Hyperlipidemia Peripheral arterial disease (Carotid US 06/28/24 bilateral 1-39% ICA stenosis): Carotid Disease Neuro/Psych GI/Hepatic/Renal Endo/Other (+)Obese: Severe obesity (BMI 35-39.9) Diabetes mellitus: pre-diabetes Hypothyroidism MARKETING 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 * Left ventricular segmental wall motion is normal. * The left ventricular diastolic function is normal. * Right ventricular systolic function is normal. * Estimated pulmonary artery systolic pressure is 21 mmHg. * There is mild mitral valve regurgitation. Opioids : Naive Body mass index is 39.48 kg/m??. Anesthesia Plan Anesthesia Plan: general and regional PONV Risk Score: 4. Score of 3 or more is High Risk for PONV, combination antiemetic prophylaxis isindicated. Chart Reviewed documented in this encounter Plan of Treatment Upcoming Encounters Date Type Department Care Team (Late st Contact Info) Description 08/31/2025 4:00 PM EDT Appointment [facility] Physical Therapy [address] [place] [address] Collin Traore, PT 09/04/2025 10:00 AM EDT Appointment [facility] Physical Therapy [address] [place] [address] Virginia Bagley, PT [address] [place] [id number] 09/07/2025 4:00 PM EDT Appointment [facility] Physical [address] [place] [address] Collin Traore, PT 09/11/2025 10:00 AM EDT [address]ointment [address] [place] [address] Virginia Bagley, PT [address] [place] [address] 09/14/2025 4:00 PM EDT Appointment [address] [place] [address] Collin Traore, PT 09/18/2025 10:00 AM EDT [address]ment [address] [place] [address] Virginia Bagley, PT [address] [place] [address] 09/19/2025 9:00 AM EDT Office Visit [facility] [address] [place] [address] Yobany Roberts DO [address] [place] [address] 2025 4:00 PM EDT Appointment [facility] Physical Therapy [address] [place] [address] Collin Traore, PT 10/03/2025 9:30 AM EST Office Visit [facility] [address] [place] [address] Mehul Ruiz, ELECTRIC METER REPAIRER [address] [place], [place] [id number] 10/04/2025 8:00 AM EST Office Visit [facility] [address] [place] [address] Gabe Spencer MD [address] [place] [address] documented as of this encounter Procedures Procedure Name Priority Date/Time Associated Diagnosis Comments INTRAOP AIRWAY PLACEMENT Routine 08/11/2025 11:34 AM EDT PERIPHERAL BLOCK Routine 08/11/2025 11:2 4 AM EDT documented in this encounter Results * INTRAOP AIRWAY PLACEMENT (08/11/2025 11:34 AM EDT) Narrative [facility] - 08/11/2025 11:34 AM EDT Khushboo Godinez CRNA 08/11/2025 11:50 AM Intraop Airway Placement: Date/Time: 08/11/2025 11:34 AM Induction type: IV Mask size: Standard adult Pre-Oxygenation: Standard Mask ventilation: Easy mask ventilation Airway type: LMA Topical Anesthetic/Lubricant: Lubricant jelly Airway location: Oral Device size: 4 Secured by: Tape Measured from: Lips Placement verified: Auscultation, End tidal CO2 and Symmetric chest wall motion Condition: Atraumatic and Unchanged Insertion attempts: 1 Title: ELEVATOR REPAIRER APPRENTICE us Leonard Delgado DO [place] ANESTHESIA Edited Resu lt - Final [facility] [address] [place] [address] * Peripheral Block by Anesthesia (08/11/2025 11:24 AM EDT) Narrative [facility] - 08/11/2025 11:24 AM EDT Lit Hoang MD 08/11/2025 11:33 AM Peripheral Block by Anesthesia Procedure Date/Time: 08/11/2025 11:24 AM Patient location during procedure: OR holding area Reason for block: at surgeon's request and post-op pain management Staff and Pre-procedure checks Anesthesiologist: Lit Hoang MD Performed: anesthesiologist Preanesthetic Checklist: Allergies confirmed, Block plan confirmed, Necessary block equipment present, Supplemental O2 applied, if needed, Anticoagulant confirmed, Block site marked, Patient identified- 2 criteria, Surgical procedure consent verified, Aseptic technique used, Drug/solution labeled, YARI recommended monitors applied, IV access functioning, Sedation given, if needed and Resuscitation equipment available Immediate perianesthetic assessment completed: Yes Patient position: Supine Prep: Chloraprep and Patient Draped Monitoring: Mental status assessed, O2 Sat, EKG and BP Position: Peripheral Block Block type: Adductor Canal Block Laterality: Right Injection technique: single-shot Pain pump: no pain pump placed Medication(s) Administered: Fentanyl (SUBLIMAZE), Dexamethasone (DECADRON) and Bupivacaine (MARCAINE) 0.5% Needle Needle type: Stimuplex Needle size: 20Gx4 Nerve localization: ultrasound guidance (Adductor Canal block- Sartorius and Vastus Medialis muscle, Femoral artery and Saphenous nerve are identified; the tip of the needle and spread of the local anesthetic around the Saphenous nerve are visualized. Ultrasound image documentation is attached/scanned in [facility] chart. No anatomical pathology noted during block placement.) Adductor Canal block- Sartorius and Vastus Medialis muscle, Femoral artery and Saphenous nerve are identified; the tip of the needle and spread of the local anesthetic around the Saphenous nerve are visualized. Ultrasound image documentation is attached/scanned in [facility] chart. No anatomical pathology noted during block placement. Ultrasound probe: linear Ultrasound needle approach: in-plane Assessment Block success: a full evaluation pending Events: Uneventful Heart rate change: no Blood aspirated: no Paresthesia pain: absent Resistance on injection: normal Intermittent incremental injection LA at 5ml Ultrasound Image of the block is attached/scanned to the [employer] [facility] chart. Leonard Delgado DO ANESTHESIA ORDERABLES Final Result [address] [address] documented in this encounter Visit Diagnoses Not on filedocumented in this encounter Administered Medications Inactive Administered Medications - up to 1 most recent administrations Medication Order MAR Action Action Date Dose Rate Site ceFAZolin 2 g in sterile water 9 mL IVP 2 g, Intravenous, ONCE PREPROCEDURE, 1 dose, [...] Reason for Therapy: Surgical Prophylaxis, Pre-op (Antibiotic) New Bag 08/11/2025 11:37 AM EDT 2 g dexAMETHasone (DECADRON) injection Intravenous, PRN (Anesthesia), Starting on Thu08/11/25 at 1142, Until Thu08/11/25 at 1234, Anesthesia Intra-op Given 08/11/2025 11:42 AM EDT 8 mg glycopyrrolate (ROBINUL) injection Intravenous, PRN (Anesthesia), Starting on Thu08/11/25 at 1146, Until Thu08/11/25 at 1234, Anesthesia Intra-op Given 08/11/2025 11:46 AM EDT 0.2 mg ketorolac (TORADOL) injection Intravenous, PRN (Anesthesia), Starting on Thu08/11/25 at 1217, Until Thu08/11/25 at 1234, Anesthesia Intra-op Given 08/11/2025 12:17 PM EDT 15 mg lactated ringers infusion Intravenous, at 50 mL/hr, PREPROCEDURE CONTINUOUS, Starting on Thu08/11/25 at 0805, Until Thu08/11/25 at 1855, To be given in SDS/Pre-op Holding Area, Pre-op (Holding/SDS Meds) IV Restarted 08/11/2025 11:30 AM EDT lidocaine 1% 10 mg/mL (1 %) injection Intravenous, PRN (Anesthesia), Starting on Thu08/11/25 at 1133, Until Thu08/11/25 at 1234, Anesthesia Intra-op Given 08/11/2025 11:33 AM EDT 50 mg ondansetron (ZOFRAN) injection Intravenous, PRN (Anesthesia), Starting on Thu08/11/25 at 1142, Until Thu08/11/25 at 1234, Anesthesia Intra-op Given 08/11/2025 11:42 AM EDT 4 mg phenylephrine injection Intravenous, PRN (Anesthesia), Starting on Thu08/11/25 at 1141, Until Thu08/11/25 at 1234, Anesthesia Intra-op Given 08/11/2025 12:00 PM EDT 50 mcg propofoL (DIPRIVAN) injection Intravenous, PRN (Anesthesia), Starting on Thu08/11/25 at 1133, Until Thu08/11/25 at 1234, Anesthesia Intra-op Given 08/11/2025 11:33 AM EDT 200 mg documented in this encounter Care Teams Health Researcher Relationship Specialty Start Date End Date Elisabeth Mills [address] [place] [address] [address] [place] [address] PCP - General 12/18/10 documented as of this encounter
--- OUTSIDE RECORDS SUMMARY | 2025-08-14 09:47 | XMS_ITS | Encounter Summary ---
Author Organization [place] [address] Care Team Providers Care Bag Printer Name Role Phone Elisabeth Mills Primary Care Provider [phone] Reason for Visit * Physical Therapy (Routine) - Authorized Specialty Diagnoses / Procedures Referred By Junito trivedi Referred To Contact Physical Therapy Diagnoses Status post total knee replacement, right Gabe Spencer MD [address] [facility] [address] [place] [address] Phone: tel: fax: [facility] Physical Therapy [address] [place] [address] Phone: tel: fax: Referral ID Status Reason Start Date Expiration Date V isits Requested Visits Authorized [id number] Authorized 08/14/2025 10/09/2025 1 6 Encounter Details Date Type Department Care Team (Latest Contact Info) Description 08/14/2025 9:47 AM EDT - 08/14/2025 11:59 PM EDT Hospital Encounter [facility] Physical Therapy [address] [place] [address] Virginia Bagley, PT [address] [place] [address] Discharge Disposition: Home or Self Care Social [...] chronicity Take 137 mcg by mouth daily copyright manager. Thursday to Thursday takes 1 tablet but [...] or Self Care documented in this encounter Progress Notes * Randy Lora - 08/14/2025 10:15 AM EDT Program_ID:[id number] Access Code: [email or web address] URL: [email or web address] Date: 08-14-2025 Prepared By: Virginia Bagley Program Notes Exercises - Seated Long Arc Quad - 2 x daily - 7 x weekly - 1 sets - 20 reps - Standing Hip Abduction with Counter Support - 1 x daily - 7 x weekly - 1 sets - 10 reps - Standing Hip Extension with Counter Support - 1 x daily - 7 x weekly - 1 sets - 10 reps - Standing March with Counter Support - 1 x daily - 7 x weekly - 1 sets - 20 reps - Standing Knee Flexion Stretch on Step - 3 x daily - 7 x weekly - 1 sets - 10 reps - Standing Hamstring Stretch with Step - 2 x daily - 7 x weekly - 1 sets - 10 reps - Standing Heel Raise - 1 x daily - 7 x weekly - 1 sets - 20 reps - Active Straight Leg Raise with Quad Set - 1 x daily - 7 x weekly - 1 sets - 10 reps - Long Sitting Quad Set with Towel Roll Under Heel - 1 x daily - 7 x weekly - 1 sets - 10 reps - Supine Heel Slide with Strap - 3 x daily - 7 x weekly - 1 sets - 10 reps - Sidelying Hip Abduction - 1 x daily - 7 x weekly - 1 sets - 10 reps * Provider, Unknown - 08/14/2025 10:02 AM EDT * Virginia Bagley, CELE - 08/14/2025 10:00 AM EDT Images from the original note were not included. Physical Therapy Evaluation Patient Name: Radha Sage : 1955 Visit #: 1 Onset Date: 08/11/25 s/p adhesions removed right knee Right tkr 07/27/24 Diagnosis: adhesions removed right knee Status post total knee replacement, right Restrictions/Precautions: [place], right tkr 08/16 Physician: Johanna GONZALEZ Follow Up: 08/22/25 Evaluation Date: 08/14/2025 Reassessment Due: 09/13/25 Primary Insurance: [facility] MR/[facility] GRP MEDICARE PPO MR Secondary Insurance: N/A Insurance Authorization: AMB REFERRAL TO PHYSICAL THERAPY Pending Review (07/05/2025-07/05/2026) Visits Requested Visits Authorized Visits Completed Visits Scheduled 1 1 -- 1 Details Referral ID: [id number] Authorization Status Reason: Benefits Verified Authorization Comments: -- Referred To: [facility] Referred By: [facility] Creation Date: 07/05/2025 Referral Reasons: -- Referral Order: AMB REFERRAL TO PHYSICAL THERAPY Time In/Out: 9:50/10:53am Timed Treatment Minutes: Therapeutic Exercise 18 minutes Total Timed Code Treatment Minutes: 18 Untimed Treatment Minutes: Hot/cold packs and PT Eval Total Treatment Minutes: 63 This evaluation to serve as D/C summary if the patient doesn't return for further treatment. Subjective: Radha Sage is a 69 y.o. female referred by Gabe Spencer MD to outpatient PhysicalTherapy with a primary diagnosis of: Status post total knee replacement, right 08/16 and 08/11/25 scar tissue removal right knee Wbat right LE with no assistive device Left knee is bone on bone and needs to be replaced in the future Functional Deficits Since Injury: upright activities, bending right knee Pain: Current Pain Level: right knee 2/10 Location: right knee Increases Pain: walking steps, bending Decreases Pain: ice, elevation, and rest Sensation/Neurovascular WFL bilat LE'S Diagnostic Tests: Past Medical History: Diagnosis Date Arthritis Essential (primary) hypertension High cholesterol Hypercholesteremia 08/27/2023 Hypothyroidism Post-operative nausea and vomiting mild post op nausea Prediabetes Sleep apnea CPAP Past Surgical History: Procedure Laterality Date SECTION SECTION JOINT REPLACEMENT Right 05/24/2024 Right Total Knee Replacement; Surgeon: Matt Cerda MD; Location: [facility]; Service: Orthopedics KNEE JOINT MANIPULATION Right 07/14/2024 Right Knee Manipulation Under Anesthesia; Surgeon: Matt Cerda MD; Location: [facility]; Service: Orthopedics ORTHOPEDIC SURGERY Huly 2023 Total knee replacement Current Outpatient Medications Medication Sig Dispense Refill amLODIPine (NORVASC) 2.5 mg Oral Tablet Take 1 Tablet by mouth 2 times daily. 180 Tablet 1 aspirin 81 mg Oral Tablet, Chewable Take 1 Tablet by mouth daily. 30 Tablet 11 atorvastatin (LIPITOR) 40 mg Oral Tablet Take 1 Tablet by mouth daily. 90 Tablet 3 Cholecalciferol, Vitamin D3, 125 mcg (5,000 unit) Oral Tablet Take 5,000 Units by mouth. Cranberry 400 mg Oral Capsule Take 1 Capsule by mouth daily. docusate sodium (COLACE) 100 mg Oral Capsule Take one capsule three times a day while on pain meds 90 Capsule 0 hydroCHLOROthiazide 25 mg Oral Tablet Take 25 mg by mouth daily. LEVOthyroxine (SYNTHROID) 137 mcg Oral Tablet Take 137 mcg by mouth daily copyright manager. Thursday to Thursday takes 1 tablet but on Thursday patient takes 1/2 tablet. losartan (COZAAR) 50 mg Oral Tablet Take 25 mg by mouth 2 times daily. (Patient taking differently:Take 50 mg by mouth 2 times daily.) metFORMIN (GLUCOPHAGE XR) 500 mg Oral ER 24 hr tablet Take 500 mg by mouth daily (with breakfast). oxyCODONE (ROXICODONE) 5 mg Oral Tablet Take 1 Tablet by mouth every 4 hours as needed for Major Surgery/Trauma (G89.18) for up to 28 doses. 28 Tablet 0 promethazine (PHENERGAN) 25 mg Oral Tablet Take 1 Tablet by mouth every 6 hours as needed for Nausea for up to 20 doses. 20 Tablet 0 No current facility-administered medications for this visit. Allergies: Patient has no known allergies. Have you received any Speech or Physical therapy this year? [] Yes [x] No Are you currently receiving any Home Health services? [] Yes [x] No Any problems with speech, communication, memory? [] Yes [x] No Barriers to learning? [] Yes [x] No Recent falls? [] Yes [x] No How would you rate your overall health? 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 Recreational Activities: mandaeism Patient Goals: Decrease pain, Improve flexibility, Increase strength, Increase endurance (increase time able to walk, exercise), Increase mobility (getting in/out of bed, walking, going up and down stairs, get up/down from chairs/floor), Improve activities of daily living (dress, house cleaning, ramirez ndry, etc.), and Improve walking Observation: Body Composition: Ectomorphic Assistive Devices/DME (if present): none Skin Integrity: healing right Posture: mod forward head and shoulders Objective: FOTO Score & PSFS FOTO??: (1-100) Initial 08/14/2025 Re-Assess Score (Predicted) 59 (68) PSFS: Patient will be able to... (0-10) Bend right knee 4 Walk or stand long periods 5 Walk down stairs 5 Knee Objective Gait: slow gait slight limp right LE, no assistive device Up and down 5 steps with holding 2 rails ,slow with right leg down steps Palpation: right knee Sensation: normal bilat LE'S Flexibility: hamstrings wnl's bilat ROM: Lower Extremity (normal??) Active (Passive) Left Right Knee Flexion (135??) 130 102 Knee Extension (0??) 0 0 Hip AROM: wnl's bilat Strength: 4+/5 bilat LE'S Special Tests: dna secondary to patient had right knee surgery Treatment HEP Access Code: [email or web address] URL: [email or web address] Date: 08/14/2025 Prepared by: Virginia Bagley There [facility],[employer] 18 min Exercises - Seated Long Arc Quad - 2 x daily - 7 x weekly - 1 sets - 20 reps - Standing Hip Abduction with Counter Support - 1 x daily - 7 x weekly - 1 sets - 10 reps - Standing Hip Extension with Counter Support - 1 x daily - 7 x weekly - 1 sets - 10 reps - Standing March with Counter Support - 1 x daily - 7 x weekly - 1 sets - 20 reps - Standing Knee Flexion Stretch on Step - 3 x daily - 7 x weekly - 1 sets - 10 reps - 20 hold - Standing Hamstring Stretch with Step - 2 x daily - 7 x weekly - 1 sets - 10 reps - 30 hold - Standing Heel Raise - 1 x daily - 7 x weekly - 1 sets - 20 reps - Active Straight Leg Raise with Quad Set - 1 x daily - 7 x weekly - 1 sets - 10 reps - Long Sitting Quad Set with Towel Roll Under Heel - 1 x daily - 7 x weekly - 1 sets - 10 reps - Supine Heel Slide with Strap - 3 x daily - 7 x weekly - 1 sets - 10 reps - 20 hold - Sidelying Hip Abduction - 1 x daily - 7 x weekly - 1 sets - 10 reps Recumbent bike 5 min gradually sliding seat forward to increase right knee rom Prone right knee flexion with therapist overpressure 10 reps Ice to right knee using game ready with patient sitting and right heel propped on foot stool with pillow under heel Response to HEP instruction/patient education: Instruction/patient education, Verbalized understanding Response to treatment: Improved gait Assessment Radha Sage presents with signs and symptoms consistent with right knee s/p scar tissue removal 08/11/25 and s/p right tkr 08/16 Functional impairments and activity limitations include: upright activities, bending right knee, walking steps. Pt would benefit from skilled physical therapy services inorder to address Balance, Flexibility, Functional Mobility, Gait, Pain, ROM, and Strength. Rehab Potential: [x] Good [] Fair [] Poor Goals Short Term Goals: (set for 4 weeks) Update/Status Patient will be independent with HEP in order to promote long-term health and reduce risk for injury. [x] Unmet [] Progressing [] Met Patient's right knee AROM will increase to 110 from 102 flexion to allow for safe return to walkingwithout issue. [x] Unmet [] Progressing [] Met Psfs score on going down steps from 5/10 to 8/10 [x] Unmet [] Progressing [] Met Senior Living Goals: (set for 8 weeks) Update/Status Patient's FOTO score will increase to 65 from 59 noting an increase in overall function. [x] Unmet [] Progressing [] Met Patient's PSFS score on walking long periods will improve from 5 to 8, noting an improvement in function that is important to patient's quality of life. [x] Unmet [] Progressing [] Met Right knee rom to 0 to 120 flexion so that she can walk better and walk up and down stairs better [x] Unmet [] Progressing [] Met Pt will report no higher than 1/10 pain with functional activities f [x] Unmet [] Progressing [] Met Psfs score on bending right knee from 4/10 to 8/10. [x] Unmet [] Progressing [] Met Plan [] Continue per plan of care [] Alter current plan (see comments) [x] Plan of care initiated [] Hold pending MD visit [] Discharge Comments: Patient will be seen 2 times per week for 8 weeks. Treatments to consist of Therapeutic exercise 99881, Neuromuscular re-education 61080, Manual soft tissue and/or joint mobilization 50832,Patient education, Electrical stimulation (unattended Medicare) G0283, Cryotherapy 88052, Therapeutic activity 80850, and Gait training 13988 Patient present with co-morbidities of cardiac disease and musculoskeletal conditions and personal factors of Transportation difficulty and Age that may impact patient/family's ability to Work, Attend social activities, Perform ADLs, and Engage in community. During today's evaluation, he/she presented with problem areas in musculoskeletal system, neuromuscular system, physiologic function, and activity limitations that are impacting functional activities and participation (see objective measures for further detail). Due to healing fracture/surgical sites/wound bed and indicated course of physical therapy, the patient's presentation is evolving at this time. This patient presented today withmoderate complexity. Reference Chart: Co-morbidities & Personal Factors Body system elements Presentation Clinical Decision Making Low Evaluation 0 1-2 Stable / Predictable Low Moderate Evaluation 1-2 3 or more Evolving/ Changing Moderate High Evaluation 3 or more 4 or more Unstable/ Unpredictable High Signature: Virginia Bagley, PT Date: 08/14/2025 * Eriberto Jimenez, Clerical Staff - 08/14/2025 10:00 AM EDT [employer] approved 6 visits from 08/14/25-10/09/25 authorization# [id number]. Eriberto Jimenez Clerical Staff documented in this encounter Miscellaneous Notes * Addendum Note - Eriberto Jimenez Clerical Staff - 08/14/2025 10:00 AM EDT Encounter addended by: Eriberto Jimenez Clerical Staff on: 08/15/2025 3:04 PM Actions taken: Clinical Note Signed documented in this encounter Plan of Treatment Upcoming Encounters Date Type Department Care Team (Late st Contact Info) Description 08/31/2025 4:00 PM EDT Appointment [facility] Physical Therapy [place] [address] [place] [address] Collin Traore, PT 09/04/2025 10:00 AM EDT Appointment [facility] Physical Therapy [place] [address] [place] [address] Virginia Bagley, PT [address] [facility] [place] [id number] 09/07/2025 4:00 PM EDT Appointment [facility] Physical Therapy [place] [address] [place] [address] Collin Traore, PT 09/11/2025 10:00 AM EDT Appointment [facility] Physical Therapy [place] [address] [place] [address] Virginia Bagley, PT [address] [facility] [place] [address] 09/14/2025 4:00 PM EDT Appointment [facility] Physical Therapy [place] [address] [place] [address] Collin Traore, PT 09/18/2025 10:00 AM EDT Appointment [facility] Physical Therapy [place] [address] [place] [address] Virginia Bagley, PT [address] [place] [address] 09/19/2025 9:00 AM EDT Office Visit [facility] [address] [place] [address] Yobany Roberts DO [address] [place] [address] 2025 4:00 PM EDT Appointment [facility] Physical Therapy [address] [place] [address] Collin Traore, PT 10/03/2025 9:30 AM EST Office Visit [facility] [address] [place] [address] Mehul Ruiz, MANAGER FOOD [address] [place] [address] 10/04/2025 8:00 AM EST Office Visit [facility] [address] [address] Gabe Spencer MD [address] [place] [address] Scheduled Referrals Name Type Priority Associated Diagnoses Orde r Schedule AMB REFERRAL TO PHYSICAL THERAPY Outpatient Referral Routine Status post total knee replacement, right Ordered: 07/05/2025 documented as of this encounter Visit Diagnoses Not on filedocumented in this encounter Care Teams Bag Printer Relationship Specialty Start Date End Date Elisabeth Mills [facility] [address] [place] [address] PCP - General 12/18/10 documented as of this encounter
--- OUTSIDE RECORDS SUMMARY | 2025-08-17 07:17 | XMS_ITS | Encounter Summary ---
Author Organization [place] [address] Care Team Providers Care Police Officer Booking Name Role Phone Elisabeth Mills Primary Care Provider [phone] Reason for Visit * Physical Therapy (Routine) - Authorized Specialty Diagnoses / Procedures Referred By Junito trivedi Referred To Contact Physical Therapy Diagnoses Status post total knee replacement, right Gabe Spencer MD [address] [facility] [address] [place] [address] Phone: tel: fax: [facility] Physical Therapy [address] [place] [address] Phone: tel: fax: Referral ID Status Reason Start Date Expiration Date V isits Requested Visits Authorized [id number] Authorized 08/14/2025 10/09/2025 1 6 Encounter Details Date Type Department Care Team (Latest Contact Info) Description 08/17/2025 7:17 AM EDT - 08/17/2025 11:59 PM EDT Hospital Encounter [facility] Physical Therapy [address] [place] [address] Collin Traore PT Discharge Disposition: Home or Self Care Social [...] chronicity Take 137 mcg by mouth daily mainspring former brace end. Thursday to Thursday takes 1 tablet but [...] documented in this encounter Progress Notes * Collin Traore, PT - 08/17/2025 7:30 AM EDT Images from the original note were not included. Physical Therapy Treatment Note Patient Name: Radha Sage : 1955 Visit #: 2 Onset Date: 08/11/25 s/p adhesions removed right knee Right tkr 07/27/24 Diagnosis: adhesions removed right knee Status post total knee replacement, right Restrictions/Precautions: [place] mi, right tkr 08/16 Physician: Johanna GONZALEZ Follow Up: 08/22/25 Evaluation Date: 08/14/2025 Reassessment Due: 09/13/25 Primary Insurance: [employer] MR/[employer] GRP MEDICARE PPO [place] Secondary Insurance: N/A Insurance Authorization: AMB REFERRAL TO PHYSICAL THERAPY Authorized (08/14/2025-10/09/2025) Visits Requested Visits Authorized Visits Completed Visits Scheduled 1 6 2 4 Details Referral ID: [id number] Authorization Status Reason: Received Carrier Authorization Authorization Comments: -- Referred To: [facility] Referred By: Gabe Spencer MD at [facility], [facility] Creation Date: 07/05/2025 Referral Reasons: -- Referral Order: AMB REFERRAL TO PHYSICAL THERAPY Time In/Out: Timed Treatment Minutes: Manual therapy techniques 10 minutes Therapeutic Exercise 35 minutes Total Timed Code Treatment Minutes: 45 Untimed Treatment Minutes: Hot/cold packs Total Treatment Minutes: 60 Medication Changes: denies Pain: 3 Location: right knee Subjective Knee feels a little better today. Objective: FOTO Score & PSFS FOTO??: (1-100) [...] right knee surgery Treatment HEP Access Code: [email or web address] URL: [email or web address] Date: 08/14/2025 Prepared by: Virginia Bagley Therapeutic Exercise: 35 minutes - Seated Long Arc Quad - 2 [...] 7 x weekly - 1 sets - 15 reps - 20 hold - Sidelying Hip Abduction - 1 x daily - 7 x weekly - 1 sets - 10 reps - Prone TKE x10 with 5 second hold - Recumbent bike 5 min gradually sliding seat forward to increase right knee rom Manual Therapy: 10 minutes - Prone right knee flexion with therapist overpressure 10 reps - TFJ PA's grades III-IV 15 minutes Ice to right knee using game ready with patient sitting and right heel propped on foot stool with pillow under heel Assessment Patient with good tolerance to PT session. Continues to slowly, but steadily progress with knee ROMand stability. Will further progress patient as patient tolerates. Goals Short Term Goals: (set for 4 weeks) Update/Status Patient will be independent with HEP in order to promote long-term health and reduce risk for injury. [] Unmet [x] Progressing [] Met Patient's right knee AROM will increase to 110 from 102 flexion to allow for safe return to walkingwithout issue. [x] Unmet [] Progressing [] Met Psfs score on going down steps from 5/10 to 8/10 [x] Unmet [] Progressing [] Met Care Home Goals: (set for 8 weeks) Update/Status Patient's [...] [x] Unmet [] Progressing [] Met Plan [x] Continue per plan of care [] Alter current plan (see comments) [] Plan of care initiated [] Hold pending MD visit [] Discharge Comments: Patient will be seen 2 times per week for 8 weeks. Treatments to consist of Therapeutic exercise 64315, Neuromuscular re-education 75347, Manual soft tissue and/or joint mobilization 34442,Patient education, Electrical stimulation (unattended Medicare) G0283, Cryotherapy 65560, Therapeutic activity 84599, and Gait training 98792 Electronically signed by: Signed: Collin Traore PT Date: 08/17/2025 documented in this encounter Plan of Treatment Upcoming Encounters Date Type Department Care Team (Late st Contact Info) Description 08/31/2025 4:00 PM EDT Appointment [facility] Physical Therapy [address] [address] Collin Traore, PT 09/04/2025 10:00 AM EDT Appointment [facility] Physical Therapy [address] [place] [address] Virginia Bagley, PT [address] [place] [address] 09/07/2025 4:00 PM EDT Appointment [facility] Physical Therapy [address] [address] Collin Traore, PT 09/11/2025 10:00 AM EDT Appointment [facility] Physical [address] [address] Virginia Bagley, PT [address] [place] [address] 09/14/2025 4:00 PM EDT Appointment [address] [place] [address] Collin Traore, PT 09/18/2025 10:00 AM EDT Appointment [address] [place] [address] Virginia Bagley, PT [address] [place] [address] 09/19/2025 9:00 AM EDT Office Visit [facility] [address] [place] [phone] Yobany Roberts DO [address] [place] [address] 2025 4:00 PM EDT Appointment [address] [place] [address] Collin Traore, PT 10/03/2025 9:30 AM EST Office Visit [facility] [address] [place] [address] Mehul Ruiz, AUTOMOBILE CARPETS MOLDER [address] [place] [address] 10/04/2025 8:00 AM EST Office Visit [facility] [address] [address] Gabe Spencer MD [address] [facility] [address] [place] [address] documented as of this encounter Visit Diagnoses Not on filedocumented in this encounter Care Teams Police Officer Booking Relationship Specialty Start Date End Date Elisabeth Mills [address] [facility] [address] [place] [address] PCP - General 12/18/10 documented as of this encounter
--- OUTSIDE RECORDS SUMMARY | 2025-08-21 09:48 | XMS_ITS | Encounter Summary ---
[place] [address] Care Team Providers Care Solid Tire Finisher Name Role Phone Elisabeth Mills Primary Care Provider [phone] Reason for Visit * Physical Therapy (Routine) - Authorized Specialty Diagnoses / Procedures Referred By Junito trivedi Referred To Contact Physical Therapy Diagnoses Status post total knee replacement, right Gabe Spencer MD [address] [facility] [address] [place] [address] Phone: tel: fax: [facility] Physical Therapy [address] [place] [address] Phone: tel: fax: Referral ID Status Reason Start Date Expiration Date V isits Requested Visits Authorized [id number] Authorized 08/14/2025 10/09/2025 1 6 Encounter Details Date Type Department Care Team (Latest Contact Info) Description 08/21/2025 9:48 AM EDT - 08/21/2025 11:59 PM EDT Hospital Encounter [facility] Physical Therapy [address] 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 Thursday to Thursday takes 1 tablet but [...] documented in this encounter Progress Notes * Virginia Bagley, PT - 08/21/2025 10:00 AM EDT Images from the original note were not included. Physical Therapy Treatment Note Patient Name: Radha Sage : 1955 Visit #: 3 Onset Date: 08/11/25 s/p adhesions removed right knee Right tkr 07/27/24 Diagnosis: adhesions removed right knee Status post total knee replacement, right Restrictions/Precautions: [place], right tkr 08/16 Physician: Johanna GONZALEZ Follow Up: 08/22/25 Evaluation Date: 08/14/2025 Reassessment Due: 09/13/25 Primary Insurance: [employer] MR/[employer] GRP MEDICARE PPO MR Secondary Insurance: N/A Insurance Authorization: AMB REFERRAL TO PHYSICAL THERAPY Authorized (08/14/2025-10/09/2025) Visits Requested Visits Authorized Visits Completed Visits Scheduled 1 6 3 3 Details Referral ID: [id number] Authorization Status Reason: Received Carrier Authorization Authorization Comments: -- Referred To: [facility] Referred By: aGbe Spencer MD at [facility], [facility] Creation Date: 07/05/2025 Referral Reasons: -- Referral Order: AMB REFERRAL TO PHYSICAL THERAPY Time In/Out: 9:54/10:44am Timed Treatment Minutes: Manual therapy techniques 8 minutes Therapeutic Exercise 40 minutes Total Timed Code Treatment Minutes: 50 Untimed Treatment Minutes: 0 Total Treatment Minutes: 50 Medication Changes: none Pain: 2/10 right knee Location: right knee Subjective Doing exercises at home and icing Objective: FOTO Score & PSFS FOTO??: (1-100) Initial 08/14/2025 Re-Assess Score (Predicted) 59 (68) PSFS: Patient will be able to... (0-10) Bend right knee 4 Walk or stand long periods 5 Walk down stairs 5 Knee Objective Gait: normal right LE ROM: Lower Extremity (normal??) Active (Passive) Left Right Knee Flexion (135??) 130 98 Knee Extension (0??) 0 0 Right knee 0 to 110 flexion after stretch Treatment HEP Access Code: [email or web address] URL: [email or web address] Date: 08/14/2025 Prepared by: Virginia Bagley Therapeutic Exercise: 40 minutes - Seated Long Arc Quad - -2# 20 reps - Standing Hip Abduction with Counter Support 2# 20 reps - Standing Hip Extension with Counter Support -2# 20 reps - Standing March with Counter Support - -2# 20 reps - Standing Knee Flexion Stretch on Step - 10 reps - 20 hold - Standing Hamstring Stretch with Step - 203reps - 30 hold - Standing Heel Raise - - 20 reps - Active Straight Leg Raise with Quad Set - 20 reps - Long Sitting Quad Set with Towel Roll Under Heel -20 reps - Supine Heel Slide with Strap -10 reps - 20 hold - Sidelying Hip Abduction - 20 reps - Prone knee flexion with therapist overpressure 2 sets of 10 reps - Recumbent bike 5 min gradually sliding seat forward to increase right knee rom Leg press total gym 15 reps with right knee bent more to increase knee flexion Manual Therapy: 8 minutes - Prone right knee flexion with therapist overpressure 10 reps 2 sets - 15 minutes Ice to right knee using game ready with patient sitting and right heel propped on foot stool with pillow under heel Assessment Right knee 0 to 95 flexion prior to stretch Ambulating with no assistive device and no limping right LE Goals Short Term Goals: (set for 4 [...] 8/10 [x] Unmet [] Progressing [] Met Retirement Goals: (set for 8 weeks) Update/Status Patient's [...] [x] Unmet [] Progressing [] Met Plan [x]Continue per plan of care [] Alter current plan (see comments) [] Plan of care initiated [] Hold pending MD visit [] Discharge Comments: Patient will be seen 2 times per week for 8 weeks. Treatments to consist of Therapeutic exercise 75492, Neuromuscular re-education 51498, Manual soft tissue and/or joint mobilization 08162,Patient education, Electrical stimulation (unattended Medicare) G0283, Cryotherapy 68543, Therapeutic activity 16419, and Gait training 54652 Electronically signed by: Signed: Virginia Bagley, PT Date: 08/21/2025 documented in this encounter Plan of Treatment Upcoming Encounters Date Type Department Care Team (Late st Contact Info) Description 08/31/2025 4:00 PM EDT Appointment [facility] Physical Therapy [address] [place] [address] Collin Traore, PT 09/04/2025 10:00 AM EDT [address]ointment [address] [place] [address] Virginia Bagley, PT [address] [place] [phone] 09/07/2025 4:00 PM EDT Appointment [facility] Therapy [address] [place] [address] Collin Traore, PT 09/11/2025 10:00 AM EDT Appointment [address] [place] [address] Virginia Bagley, PT [address] [place] [address] 09/14/2025 4:00 PM EDT [address]ointment [address] [place] [address] Collin Traore, PT 09/18/2025 10:00 AM EDT Appointment [facility] Physical Therapy [address] [place] [address] Virginia Bagley, PT [address] [place] [address] 09/19/2025 9:00 AM EDT Office Visit [facility] [address] [place] [address] Yobany Roberts DO [address] [place] [address] 2025 4:00 PM EDT Appointment [facility] Physical Therapy [address] [place] [address] Collin Traore, PT 10/03/2025 9:30 AM EST Office Visit [facility] [address] [address] Mehul Ruiz, KAYA [address] [place], [place] [id number] 10/04/2025 8:00 AM EST Office Visit [facility] [address] [address] Gabe Spencer MD [address] [address] documented as of this encounter Visit Diagnoses Not on filedocumented in this encounter Care Teams Solid Tire Finisher Relationship Specialty Start Date End Date Elisabeth Mills [address] [place] [id number] PCP - General 12/18/10 documented as of this encounter
--- OUTSIDE RECORDS SUMMARY | 2025-08-22 15:30 | XMS_ITS | Encounter Summary ---
Author Organization [facility] Address [address] [place] [address] Care Team Providers Care Hole Digger Operator Name Role Phone Elisabeth Mills Primary Care Provider [phone] Reason for Visit * Reason Comments Post-Operative Exam Encounter Details Date Type Department Care Team (Late st Contact Info) Description 08/22/2025 3:30 PM EDT Office Visit [facility] [address] [facility] [address] [place], [place] [id number] Nia Aguilar APRN [address] [place] [address] Status post arthroscopy of knee (Primary Dx) Social History Tobacco Use Types [...] as of this encounter Progress Notes * Nia Aguilar APRN - 08/22/2025 3:30 PM EDT Images from the original note were not included. Nia Aguilar APRN/SA Orthopaedic Surgery/Sports Medicine [address] [place] [address] Patient Name: Radha Sage [id number] Date of : 1955 Patient Primary Care Physician: Elisabeth Mills DATE OF VISIT: 08/22/2025 Chief Complaint: Recheck of Right knee status post arthroscopy. Procedure Note: Dr Spencer 08/11/2025 POSTOPERATIVE DIAGNOSIS: Right knee arthrofibrosis, painful total knee replacement. PROCEDURE PERFORMED: Right knee total knee replacement, arthroscopic lysis of adhesions/extensive synovectomy. Medical History: The patients medications, allergies, past medical, surgical, social and family histories were reviewed and updated as appropriate. Review of Systems: Pertinent items are noted in HPI. Review of systems reviewed from patient history form is availablein the patient's chart. BMI: 37.4 at the last time of measurement. HISTORY: The patient returns to the office today for their first follow-up for Right knee arthroscopy. The patient reports they are doing well. They have had no fever, nausea, vomiting, drainage fromtheir incision and no calf pain. She states she is feeling well doing well. PHYSICAL EXAMINATION: The patient is alert and oriented adequately groomed in no acute distress Exam of the operative knee reveals a mild effusion. Skin incisions well approximated, clean and dry. No signs of infection. Range of motion full extension, limited flexion due to the mild effusion. Calf is soft and supple. Negative Homans sign. No SOB Distally, the patient is neurovascularly and sensory intact. IMPRESSION: Status post knee arthroscopy (See procedure note above for details). PLAN: I did go over the surgical pictures with the patient today. The patient has a subcuticular closure with Steri-Strips. If the Steri-Strips are still intact we will follow-up in a week or so. Soap and water to the incisional areas, no topical gels or salves. At this time the patient will begin physical therapy working on range of motion and strengthening exercises. If still using crutches they can wean from those based on therapy's guidance with improved quad control. We discussed the difference between meniscal and chondral pathology. What has been accomplished surgically for each. The chondral pathology has been improved but arthritis cannot be fully healed with a knee arthroscopy as we discussed pre-operatively. The patient will continue to ice and elevate the extremity to reduce swelling. If there is any redness, drainage, fever, calf pain or sharp increase in pain they will call immediately or go to the emergency room. The patient will follow up in the office in six weeks to reevaluate progress. All questions were answered. All decisions made today were in agreement with the patient. GUIDELINES: Patient will continue with weight bearing as tolerated. The patient understands the critical importance of post-operative rehabilitation and they understand that if they do not work hard in physical therapy or are non-compliant that they are compromising the outcome of their the surgery and they understand the risk of re-injury or slowing the healing process. They understand the typical time to return to play for professional and or recreational sportis anywhere from a few weeks to months, and also have a clear understanding that not all patients are able to return to their previous level of function, although we fully intend for them to be able to do so. The multimedia services manager-frame for healing can be a year or longer, based on each individuals healingpotential, genetics, and work with physical therapy. There is typically some numbness around the incisional areas where the incisions were made to perform the procedure. This should improve over time, however; some numbness may remain. We have discussed the nature of the diagnosis and treatment options with the patient today. Ample time was given for discussion and questions about different treatment strategies and the patient is in full agreement with our treatment plan. All decisions were made with the patient's full understanding. Nia Aguilar APRN Parts of this note [...] in the future. documented in this encounter Plan of Treatment Upcoming Encounters Date Type Department Care Team (Late st Contact Info) Description 08/31/2025 4:00 PM EDT Appointment [facility] Physical Therapy [address] [place] [address] Collin Traore, CELE 09/04/2025 10:00 AM EDT Appointment [facility] Physical Therapy [address] [place] [address] Virginia Bagley, PT [address] [place] [address] 09/07/2025 4:00 PM EDT Appointment [facility] Physical [address] [place] [address] Collin Traore, PT 09/11/2025 10:00 AM EDT Appointment [place] [address] [place] [address] Virginia Bagley, PT [address] [facility] [place] [address] 09/14/2025 4:00 PM EDT Appointment [facility] Physical [address] [place] [address] Collin Traore, PT 09/18/2025 10:00 AM EDT Appointment [facility] Physical [address] [place] [address] Virginia Bagley, PT [address] [place] [address] 09/19/2025 9:00 AM EDT Office Visit [facility] [address] [place] [phone] Yobany Roberts DO [address] [place] [address] 2025 4:00 PM EDT Appointment [facility] Physical Therapy [address] [place] [address] Collin Traore, PT 10/03/2025 9:30 AM EST Office Visit [facility] [address] [place] [address] Mehul Ruiz, SLUBBER TENDER [address] [place] [address] 10/04/2025 8:00 AM EST Office Visit [facility] [address] [address] Gabe Spencer MD [address] [place] [address] documented as of this encounter Visit Diagnoses Diagnosis Status post arthroscopy of knee- Primary Other postprocedural status documented in this encounter Care Teams Hole Digger Operator Relationship Specialty Start Date End Date Elisabeth Mills [address] [facility] [address] [place] [address] PCP - General 12/18/10 documented as of this encounter
--- OUTSIDE RECORDS SUMMARY | 2025-08-25 07:32 | XMS_ITS | Encounter Summary ---
Author [place] [address] Care Team Providers Care Aircraft Shipping Checker Name Role Phone Elisabeth Mills Primary Care Provider [phone] Reason for Visit * Physical Therapy (Routine) - Authorized Specialty Diagnoses / Procedures Referred By Junito trivedi Referred To Contact Physical Therapy Diagnoses Status post total knee replacement, right Gabe Spencer MD [address] [facility] [address] [place] [address] Phone: tel: fax: [facility] Physical Therapy [address] [place] [address] Phone: tel: fax: Referral ID Status Reason Start Date Expiration Date V isits Requested Visits Authorized [id number] Authorized 08/14/2025 10/09/2025 1 6 Encounter Details Date Type Department Care Team (Latest Contact Info) Description 08/25/2025 7:32 AM EDT - 08/25/2025 11:59 PM EDT Hospital Encounter [facility] Physical Therapy [address] [place] [address] Korin Michael, PT [address] [place] [address] Discharge Disposition: Home or Self Care Social [...] Take 137 mcg by mouth daily early interventionist. Thursday to Thursday takes 1 tablet but [...] documented in this encounter Progress Notes * Alec Korin, PT - 08/25/2025 7:45 AM EDT Images from the original note were not included. Physical Therapy Treatment Note Patient Name: Radha Sage : 1955 Visit #: 4 Onset Date: 08/11/25 s/p adhesions removed right knee Right tkr 07/27/24 Diagnosis: adhesions removed right knee Status post total knee replacement, right Restrictions/Precautions: [place] mi, right tkr 08/16 Physician: Johanna GONZALEZ Follow Up: 08/22/25 Evaluation Date: 08/14/2025 Reassessment Due: 09/13/25 Primary Insurance: [employer] [facility] MEDICARE PPO MR Secondary Insurance: N/A Insurance Authorization: AMB REFERRAL TO PHYSICAL THERAPY Authorized (08/14/2025-10/09/2025) Visits Requested Visits Authorized Visits Completed Visits Scheduled 1 6 4 2 Details Referral ID: [id number] Authorization Status Reason: Received Carrier Authorization Authorization Comments: -- Referred To: [facility] Referred By: Gabe Spencer MD at [facility], [facility] Creation Date: 07/05/2025 Referral Reasons: -- Referral Order: AMB REFERRAL TO PHYSICAL THERAPY Time In/Out: 477/845 Timed Treatment Minutes: Manual therapy techniques 2 minutes Therapeutic Exercise 39 minutes Total Timed Code Treatment Minutes: 40 Untimed Treatment Minutes: Hot/cold packs and Vaso Total Treatment Minutes: 55 Medication Changes: no changes Pain: 5 Location: right knee Subjective I feel stiff this am. She was at son's house in lower furniture and more activity yesterday. Objective: FOTO Score & PSFS FOTO??: (1-100) Initial 08/14/2025 Re-Assess Score (Predicted) 59 (68) PSFS: Patient will be able to... (0-10) Bend right knee 4 Walk or stand long periods 5 Walk down stairs 5 Treatment HEP Access Code: [email or web address] URL: [email or web address] Date: 08/14/2025 Prepared by: Virginia Bagley Therapeutic Exercise: 39 minutes - Seated Long Arc Quad - -2# 20 reps Seated : hip add sets 5 sec x 10 - Standing Hip Abduction with Counter Support 2# 20 reps - Standing Hip Extension with Counter Support -2# 20 reps - Standing March with Counter Support - -2# 20 reps - Standing Knee Flexion Stretch on Step - 10 reps - 20 hold - Standing Hamstring Stretch with Step - 3reps - 30 hold - Standing Heel Raise - - 20 reps 2# Tandem stance : [address] with UE support at times. - Active Straight Leg Raise with Quad [...] forward to increase right knee rom Prone knee flexion x 10 reps Manual Therapy: 2 minutes - Prone right knee flexion with therapist overpressure 20 sec x 5 15 minutes Ice to right knee using game ready with patient sitting and right heel propped on foot stool with pillow under heel Assessment Sore from more activity at son's house. Goals Short Term Goals: (set for 4 [...] 8/10 [x] Unmet [] Progressing [] Met Guncotton Packer Goals: (set for 8 weeks) Update/Status Patient's [...] weeks. Treatments to consist of Therapeutic exercise 45617, Neuromuscular re-education 80394, Manual soft tissue and/or joint mobilization 88432,Patient education, Electrical stimulation (unattended Medicare) G0283, Cryotherapy 40630, Therapeutic activity 96632, and Gait training 77802 Electronically signed by: Signed: Korin Michael, PT Date: 08/25/2025 documented in this encounter Plan of Treatment Upcoming Encounters Date Type Department Care Team (Late st Contact Info) Description 08/31/2025 4:00 PM EDT Appointment [facility] Physical Therapy [address] [place] [address] Collin Traore, PT 09/04/2025 10:00 AM EDT Appointment [facility] Therapy [address] [place] [address] Virginia Bagley, PT [address] [place] [address] 09/07/2025 4:00 PM EDT Appointment [facility] Therapy [address] [place] [address] Collin Traore, PT 09/11/2025 10:00 AM EDT Appointment [facility] Physical Therapy [address] [place] [address] Virginia Bagley, PT [address] [place] [address] 09/14/2025 4:00 PM EDT Appointment [facility] Therapy [address] [place] [address] Collin Traore, PT 09/18/2025 10:00 AM EDT Appointment [facility] Physical Therapy [address] [place] [address] Virginia Bagley, PT [address] [place] [address] 09/19/2025 9:00 AM EDT Office Visit [facility] [address] [place] [address] Yobany Roberts DO [address] [place] [address] 2025 4:00 PM EDT Appointment [facility] Physical Therapy [address] [place] [address] Collin Traore, PT 10/03/2025 9:30 AM EST Office Visit [facility] [address] [address] Mehul Ruiz, KAYA [address] [place], [place] [id number] 10/04/2025 8:00 AM EST Office Visit [facility] [address] [address] Gabe Spencer MD [address] [address] documented as of this encounter Visit Diagnoses Not on filedocumented in this encounter Care Teams Aircraft Shipping Checker Relationship Specialty Start Date End Date Elisabeth Mills [address] [facility] [address] [place] [address] PCP - General 12/18/10 documented as of this encounter
--- OUTSIDE RECORDS SUMMARY | 2025-08-28 09:29 | XMS_ITS | Encounter Summary ---
Author Organization [place] [address] Care Team Providers Care Processes Chemical Design Engineer Name Role Phone Elisabeth Mills Primary Care Provider [phone] Reason for Visit * Physical Therapy (Routine) - Authorized Specialty Diagnoses / Procedures Referred By Junito trivedi Referred To Contact Physical Therapy Diagnoses Status post total knee replacement, right Gabe Spencer MD [address] [facility] [address] [place] [address] Phone: tel: fax: [facility] Physical Therapy [address] [place] [address] Phone: tel: fax: Referral ID Status Reason Start Date Expiration Date V isits Requested Visits Authorized [id number] Authorized 08/14/2025 10/09/2025 1 6 Encounter Details Date Type Department Care Team (Latest Contact Info) Description 08/28/2025 9:29 AM EDT - 08/28/2025 11:59 PM EDT Hospital Encounter [facility] Physical Therapy [address] 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 Thursday to Thursday takes 1 tablet but [...] Progress Notes * Collin Traore, PT - 08/28/2025 9:45 AM EDT Images from the original note were not included. Physical Therapy Treatment Note Patient Name: Radha Sage : 1955 Visit #: 5 Onset Date: 08/11/25 s/p adhesions removed right knee Right tkr 07/27/24 Diagnosis: adhesions removed right knee Status post total knee replacement, right Restrictions/Precautions: [place], right tkr 08/16 Physician: Johanna GONZALEZ Follow Up: 08/22/25 Evaluation Date: 08/14/2025 Reassessment Due: 09/13/25 Primary Insurance: [employer] MR/[employer] GRP MEDICARE PPO MR Secondary Insurance: N/A Insurance Authorization: AMB REFERRAL TO PHYSICAL THERAPY Authorized (08/14/2025-10/09/2025) Visits Requested Visits Authorized Visits Completed Visits Scheduled 1 6 5 1 Details Referral ID: [id number] Authorization Status Reason: Received Carrier Authorization Authorization Comments: -- Referred To: [facility] Referred By: Gabe Spencer MD at [facility], [facility] Creation Date: 07/05/2025 Referral Reasons: -- Referral Order: AMB REFERRAL TO PHYSICAL THERAPY Time In/Out: Timed Treatment Minutes: Manual therapy techniques 2 minutes Therapeutic Exercise 39 minutes Total Timed Code Treatment Minutes: 41 Untimed Treatment Minutes: None Total Treatment Minutes: 56 Medication Changes: denies Pain: 2 Location: right knee Subjective Knee feels pretty good overall [facility] Objective: FOTO Score & PSFS FOTO??: (1-100) Initial 08/14/2025 Re-Assess Score (Predicted) 59 (68) PSFS: Patient will be able to... (0-10) Bend right knee 4 Walk or stand long periods 5 Walk down stairs 5 Treatment HEP Access Code: [email or web address] URL: [email or web address] Date: 08/14/2025 Prepared by: Virginia Bagley Therapeutic [...] sets of 10 reps - Recumbent bike 6 min gradually sliding seat forward to increase right knee rom Prone knee flexion x 10 reps Manual Therapy: 2 minutes - Prone right knee flexion with therapist overpressure 20 sec x 5 15 minutes Ice to right knee using game ready with patient sitting and right heel propped on foot stool with pillow under heel Assessment Continues to slowly progress with knee ROM and stability. Will further progress patient as patient [...] 8/10 [x] Unmet [] Progressing [] Met Alf Goals: (set for 8 weeks) Update/Status Patient's [...] weeks. Treatments to consist of Therapeutic exercise 16152, Neuromuscular re-education 07619, Manual soft tissue and/or joint mobilization 45109,Patient education, Electrical stimulation (unattended Medicare) G0283, Cryotherapy 52674, Therapeutic activity 93313, and Gait training 87510 Electronically signed by: Signed: Collin Traore PT Date: 08/28/2025 documented in this encounter Plan of Treatment Upcoming Encounters Date Type Department Care Team (Late st Contact Info) Description 08/31/2025 4:00 PM EDT Appointment [facility] Physical Therapy [address] [place] [address] Collin Traore, PT 09/04/2025 10:00 AM EDT Appointment [facility] Therapy [address] [address] Virginia Bagley, PT [address] [place] [phone] 09/07/2025 4:00 PM EDT Appointment [address] [address] Collin Traore, PT 09/11/2025 10:00 AM EDT Appointment [facility] Therapy [address] [place] [address] Virginia Bagley, PT [address] [place] [phone] 09/14/2025 4:00 PM EDT Appointment [facility] Physical Therapy [address] [place] [address] Collin Traore, PT 09/18/2025 10:00 AM EDT Appointment [facility] Physical Therapy [address] [place] [address] Virginia Bagley, PT [address] [place] [phone] 09/19/2025 9:00 AM EDT Office Visit [facility] [address] [place] [address] Yobany Roberts DO [address] [place] [address] 2025 4:00 PM EDT Appointment [facility] Physical Therapy [address] [place] [address] Collin Traore, PT 10/03/2025 9:30 AM EST Office Visit [facility] [address] [place] [address] Mehul Ruiz, KAYA [address] [place] [address] 10/04/2025 8:00 AM EST Office Visit [facility] [address] [address] Gabe Spencer MD [address] [place] [address] documented as of this encounter Visit Diagnoses Not on filedocumented in this encounter Care Teams Processes Chemical Design Engineer Relationship Specialty Start Date End Date Elisabeth Mills [address] [facility] [address] [facility] [place] [id number] PCP - General 12/18/10 documented as of this encounter
[2025-08-29 17:31] LABS: Alanine Aminotransferase 24 U/L (12-78); Albumin Level 4.1 g/dl (3.5-5.0); Albumin/Globulin Ratio 1.6 (1.1-1.8); Alkaline Phosphatase 156 U/L (38-126); Anion Gap 12.9 mEq/L (5-15); Aspartate Amino Transferase 28 U/L (14-36); Bilirubin,Total 0.8 mg/dl (0.2-1.3); Blood Urea Nitrogen 14 mg/dl (7-17); Calcium 9.7 mg/dl (8.4-10.2); Carbon Dioxide 31 mmol/L (22.0-30.0); Chloride 99 mmol/L (98-107); Cholesterol 162 mg/dl (140-200); Creatinine,Serum 0.60 mg/dl (0.52-1.04); Estimated Glomerular Filt Rate 100 ml/min (>60); GFR (African American) 121 ML/MIN (>60); Globulin 2.5 g/dL (1.3-3.2); Glucose 69 mg/dl (74-100); HDL Cholesterol 50 mg/dl (40-60); Potassium 4.9 mmoL/L (3.5-5.1); Sodium 138 mmol/L (136-145); Total Protein,Serum 6.6 g/dl (6.3-8.2); Triglycerides 170 mg/dl (30-150)
[2025-08-29 17:43] LABS: 25-OH Vitamin D, Total 56.6 ng/mL (30-100)
[2025-08-29 17:59] LABS: Thyroid Stimulating Hormone 0.47 uIU/mL (0.465-4.68)
[2025-08-29 18:18] LABS: Vitamin B12 207 pg/mL (239-931)
[2025-08-29 18:40] LABS: Hemoglobin A1C 5.8 % (4.0-6.0)
[2025-08-29 19:44] LABS: Free T4 (Free Thyroxine) 1.81 ng/dl (0.78-2.19)
--- OUTSIDE RECORDS SUMMARY | 2025-08-29 22:59 | XMS_ITS | Encounter Summary ---
Author Organization [facility] [place] [address] Care Team Providers Care Probation Counselor Name Role Phone Elisabeth Mills Primary Care Provider [phone] Encounter Details Date Type Department Care Team (Latest Contact Info) Description 07/27/2025 Travel Social History Tobacco Use Types Packs/Day Years [...] Info) Description 08/31/2025 4:00 PM EDT Appointment [facility] Physical Therapy [address] [place] [address] Collin Traore, CELE 09/04/2025 10:00 AM EDT Appointment [facility] Physical Therapy [address] [place] [address] Virginia Bagley, PT [address] [place] [address] 09/07/2025 4:00 PM EDT Appointment [facility] Physical Therapy [address] [place] [address] Collin Traore, PT 09/11/2025 10:00 AM EDT Appointment [facility] Physical Therapy [address] [place] [address] Virginia Bagley, PT [address] [place] [phone] 09/14/2025 4:00 PM EDT Appointment [facility] Physical [address] [place], [place] [phone] Collin Traore, PT 09/18/2025 10:00 AM EDT Appointment [facility] Physical [address] [place] [address] Virginia Bagley, PT [address] [place] [address] 09/19/2025 9:00 AM EDT Office Visit [facility] [address] [place] [phone] Yobany Roberts DO [address] [place] [address] 2025 4:00 PM EDT Appointment [facility] Physical [address] [place] [address] Collin Traore, PT 10/03/2025 9:30 AM EST Office Visit [facility] [address] [address] Mehul Ruiz, KAYA [address] [place] [address] 10/04/2025 8:00 AM EST Office Visit [facility] [address] [address] Gabe Spencer MD [address] [place] [address] documented as of this encounter Visit Diagnoses Not on filedocumented in this encounter Care Teams Probation Counselor Relationship Specialty Start Date End Date Elisabeth Mills [address] [place] [address] [address] [place] [address] PCP - General 12/18/10 documented as of this encounter
--- OUTSIDE RECORDS SUMMARY | 2025-08-29 22:59 | XMS_ITS | Encounter Summary ---
Author Organization [place] [address] Care Team Providers Care Whipper Beater Name Role Phone Elisabeth Mills Primary Care Provider [phone] Reason for Visit * Reason Onset Date Comments Cardiology Clearance 07/12/2025 CC request from Terrell Ayala Encounter Details Date Type Department Care Team (Late st Contact Info) Description 07/12/2025 Telephone [facility] [address] [place] [phone] Yobany Roberts R, DO [address] [place] [address] Cardiology Clearance (CC request from Terrell Ayala) Social History Tobacco Use Types Packs/Day Years [...] on file documented as of this encounter Miscellaneous Notes * Telephone Encounter - Aundrea Gee MA - 07/12/2025 1:25 PM EDT Faxed. * Telephone Encounter - Gabriella Ng APRN - 07/12/2025 12:20 PM EDT Ok to hold ASA 5-7 days prior to surgery. * Telephone Encounter - Aundrea Gee MA - 07/12/2025 12:05 PM EDT The assessment below is only valid for 30 days from signature and is subject to change based upon the patient's clinical condition. Cardiac Clearance Patient: Radha Sage : 1955 Procedure: Knee surgery Surgery date: 08/11/2025 Surgeon: Dr. Spencer Telephone: Anesthesia: Not specified Patient takes: [x] ASA [] Plavix [] Brilinta [] Effient [] Eliquis [] Xarelto [] Pradaxa [] Warfarin [] Pletal Surgery office did not specify how long to hold anticoagulant(s). Please advise. * Telephone Encounter - Jaimie Bhat - 07/12/2025 8:50 AM EDT CC [facility] documented in this encounter Plan of Treatment Upcoming Encounters Date Type Department Care Team (Late st Contact Info) Description 08/31/2025 4:00 PM EDT Appointment [facility] Physical Therapy [address] [place] [address] Collin Traore, PT 09/04/2025 10:00 AM EDT Appointment [facility] Physical Therapy [address] [place] [address] Virginia Bagley, PT [address] [place] [phone] 09/07/2025 4:00 PM EDT Appointment [facility] Physical [address] [place] [address] Collin Traore, PT 09/11/2025 10:00 AM EDT Appointment [facility] Physical Therapy [address] [place] [address] Virginia Bagley, PT [address] [place] [address] 09/14/2025 4:00 PM EDT Appointment [facility] Physical Therapy [address] [place] [address] Collin Traore, PT 09/18/2025 10:00 AM EDT Appointment [facility] Physical [address] [place] [address] Virginia Bagley, PT [address] [place] [address] 09/19/2025 9:00 AM EDT Office Visit [facility] [address] [place] [phone] Yobany Roberts DO [address] [place] [address] 2025 4:00 PM EDT Appointment [address] [place] [address] Collin Traore, PT 10/03/2025 9:30 AM EST Office Visit [facility] [address] [address] Mehul Ruiz, ACUPRESSURIST [address] [place] [address] 10/04/2025 8:00 AM EST Office Visit [facility] [address] [address] Gabe Spencer MD [address] [place] [address] documented as of this encounter Visit Diagnoses Not on filedocumented in this encounter Care Teams Whipper Beater Relationship Specialty Start Date End Date Elisabeth Mills [address] [place] [address] PCP - General 12/18/10 documented as of this encounter
--- OUTSIDE RECORDS SUMMARY | 2025-08-29 22:59 | XMS_ITS | Encounter Summary ---
Author Organization [facility] [place] [address] Care Team Providers Care Cnp Name Role Phone Elisabeth Mills Primary Care Provider [phone] Encounter Details Date Type Department Care Team (Latest Contact Info) Description 07/29/2025 Travel Social History Tobacco Use Types Packs/Day [...] 08/31/2025 4:00 PM EDT Appointment [facility] Physical Therapy [address] [place] [address] Collin Traore, CELE 09/04/2025 10:00 AM EDT Appointment [facility] Physical Therapy [address] [place] [address] Virginia Bagley, PT [address] [place] [address] 09/07/2025 4:00 PM EDT Appointment [facility] Physical Therapy [address] [place] [address] Collin Traore, PT 09/11/2025 10:00 AM EDT Appointment [facility] Physical Therapy [address] [place] [address] Virginia Bagley, PT [address] [place] [phone] 09/14/2025 4:00 PM EDT Appointment [facility] Physical [address] [place], [place] [phone] Collin Traore, PT 09/18/2025 10:00 AM EDT Appointment [facility] Physical [address] [place] [address] Virginia Bagley, PT [address] [place] [address] 09/19/2025 9:00 AM EDT Office Visit [facility] [address] [place] [phone] Yobany Roberts DO [address] [place] [address] 2025 4:00 PM EDT Appointment [facility] Physical [address] [place] [address] Collin Traore, PT 10/03/2025 9:30 AM EST Office Visit [facility] [address] [address] Mehul Ruiz, KAYA [address] [place] [address] 10/04/2025 8:00 AM EST Office Visit [facility] [address] [address] Gabe Spencer MD [address] [place] [address] documented as of this encounter Visit Diagnoses Not on filedocumented in this encounter Care Teams Cnp Relationship Specialty Start Date End Date Elisabeth Mills [address] [place] [address] [address] [place] [address] PCP - General 12/18/10 documented as of this encounter
--- OUTSIDE RECORDS SUMMARY | 2025-08-29 22:59 | XMS_ITS | Encounter Summary ---
Author Organization [facility] Address [address] [place] [address] Care Team Providers Care Corporation Pilot Name Role Phone Elisabeth Mills Primary Care Provider [phone] Reason for Visit * Reason Onset Date Comments Patient Question 07/14/2025 Encounter Details Date Type Department Care Team (Late st Contact Info) Description 07/14/2025 [place] [address] Gabe Spencer MD [address] [place] [address] Patient Question Social History Tobacco Use Types Packs/Day Years [...] encounter Miscellaneous Notes * Telephone Encounter - Sena Del Cid MA - 07/14/2025 4:10 PM EDT I spoke with the patient and let her know that it is okay to reschedule her post op visit from 08/17to 08/22. If the patient calls back, please schedule the patient on 08/22 with Claudette Aguilar in a post-op spot, okay per Claudette. * Telephone Encounter - Hiral Turcios - 07/14/2025 4:05 PM EDTSummary: 1st Post Op Patient was wanting to change her first post op from the 08/17 to 08/22 with Claudette. She is wanting toknow if that would be okay to do . documented in this encounter Plan of Treatment Upcoming Encounters Date Type Department Care Team (Late st Contact Info) Description 08/31/2025 4:00 PM EDT Appointment [facility] Physical Therapy [address] [place] [address] Collin Traore, PT 09/04/2025 10:00 AM EDT Appointment [facility] Physical Therapy [address] [place] [address] Virginia Bagley, PT [address] [place] [address] 09/07/2025 4:00 PM EDT Appointment [facility] Physical Therapy [address] [place] [address] Collin Traore, PT 09/11/2025 10:00 AM EDT Appointment [facility] Physical Therapy [address] [place] [address] Virginia Bagley, PT [address] [place] [phone] 09/14/2025 4:00 PM EDT Appointment [facility] Physical Therapy [address] [place] [address] Collin Traore, PT 09/18/2025 10:00 AM EDT Appointment [facility] Physical Therapy [address] [place] [address] Virginia Bagley, PT [address] [place] [phone] 09/19/2025 9:00 AM EDT Office Visit [facility] [address] [place] [address] Yobany Roberts DO [address] [place] [address] 2025 4:00 PM EDT Appointment [facility] Physical Therapy [address] [place] [address] Collin Traore, PT 10/03/2025 9:30 AM EST Office Visit [facility] [address] [place] [address] Mehul Ruiz, KAYA [address] [place] [address] 10/04/2025 8:00 AM EST Office Visit [facility] [address] [address] Gabe Spencer MD [address] [place] [phone] documented as of this encounter Visit Diagnoses Not on filedocumented in this encounter Care Teams Corporation Pilot Relationship Specialty Start Date End Date Elisabeth Mills [address] [place] [phone] PCP - General 12/18/10 documented as of this encounter
--- OUTSIDE RECORDS SUMMARY | 2025-08-29 22:59 | XMS_ITS | Clinical Summary ---
Author Organization 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 Thursday to Thursday takes 1 tablet but on Thursday patient takes 1/2 tablet. Active Cholecalciferol, Vitamin D3, 125 mcg (5,000 unit) Oral Tablet Take 5,000 Units by mouth. 2 Active metFORMIN (GLUCOPHAGE XR) 500 mg Oral ER 24 hr tablet Take 500 mg by mouth daily (with breakfast). 3 Active losartan (COZAAR) 50 mg Oral Tablet Take 25 mg by mouth 2 times daily. Active hydroCHLOROthiazid e 25 mg Oral Tablet Take 25 mg by mouth daily. Active Cranberry 400 mg Oral Capsule Take 1 Capsule by mouth daily. Active amLODIPine (NORVASC) 2.5 mg Oral Tablet Take 1 Tablet by mouth 2 times daily. 180 Tablet 1 4 Active atorvastatin (LIPITOR) 40 mg Oral TabletIndications: Hypercholesteremia ,Bilateral carotid artery stenosis Take 1 Tablet by mouth daily. 90 Tablet 3 4 Active aspirin 81 mg Oral Tablet, ChewableIndication s:Bilateral carotid artery stenosis Take 1 Tablet by mouth daily. 30 Tablet 11 4 Active promethazine (PHENERGAN) 25 mg Oral Tablet Take 1 Tablet by mouth every 6 hours as needed for Nausea for up to 20 doses. 20 Tablet 5 Active oxyCODONE (ROXICODONE) 5 mg Oral Tablet Take 1 Tablet by mouth every 4 hours as needed for Major Surgery/Trau ma (G89.18) for up to 28 doses. 28 Tablet 5 Active docusate sodium (COLACE) 100 mg Oral Capsule Take one capsule three times a day while on pain meds 90 Capsule 5 Active cranberry fruit (CRANBERRY) 450 mg Oral Tablet Take 450 mg by mouth daily. 025 Discontin ued(DELET E-Duplica te) chlorhexidine (HIBICLENS) 4 % Top LiquidIndications: Localized osteoarthritis of right knee Use as directed on bottle prior to surgery 1 Each 4 025 Discontin ued(DELET E-Therapy completed ) acetaminophen (TYLENOL) 500 mg Oral Tablet Take 2 Tablets by mouth every 8 hours as needed for Pain. 60 Tablet 4 025 Discontin ued(DELET E-Therapy completed ) oxyCODONE (ROXICODONE) 5 mg Oral Tablet 1-2 po every 8 hours as needed for pain 40 Tablet 4 025 Discontin ued(DELET E-Therapy completed ) traMADoL (ULTRAM) 50 mg Oral TabletIndications: Localized osteoarthritis of right knee Take 1-2 Tablets by mouth every 8 hours as needed for Pain. 40 Tablet 4 025 Discontin ued(DELET E-Therapy completed ) tiZANidine (ZANAFLEX) 2 mg Oral TabletIndications: Status post total knee replacement, right Take 1 Tablet by mouth every 8 hours as needed. 60 Tablet 4 025 Discontin ued(DELET E-Therapy completed ) Active Problems Problem Noted Date Diagnosed Date Status post total knee replacement, right 2023 Localized osteoarthritis of right knee 4 Pain in both knees 10/08/2023 HTN (hypertension) 08/27/2023 Hypercholesteremia 08/27/2023 Altered mental status, unspe cified altered mental status type 08/26/2023 Encounters Date Type Department Care Team Description 08/28/2025 9:29 AM EDT - 08/28/2025 11:59 PM EDT Hospital Encounter [facility] [address] [place] [address] Collin Traore, PT Discharge Disposition: Home or Self Care 08/25/2025 7:32 AM EDT - 08/25/2025 11:59 PM EDT Hospital Encounter [address] [place] [address] Korin Michael, PT Discharge Disposition: Home or Self Care 08/22/2025 3:30 PM EDT Office Visit [facility] [address] [place] [address] [address] [place] [address] Nia Aguilar APRN Status post arthroscopy of knee (Primary Dx) 08/21/2025 9:48 AM EDT - 08/21/2025 11:59 PM EDT Hospital Encounter [address] [address] Virginia Bagley, PT Discharge Disposition: Home or Self Care 08/17/2025 7:17 AM EDT - 08/17/2025 11:59 PM EDT Hospital Encounter [address] [place] [address] Collin Traore, PT Discharge Disposition: Home or Self Care 08/14/2025 9:47 AM EDT - 08/14/2025 11:59 PM EDT Hospital Encounter [address] [address] Virginia Bagley, PT Discharge Disposition: Home or Self Care 08/14/[address] [address] Gabe Spencer MD Other 08/14/2025 Plan of Care Documentation [facility] [address] [place] [address] 08/14/2025 Orders Only [facility] Physical Therapy [place] [address] [place] [address] Gabe Spencer MD 08/14/2025 Orders Only [facility] Physical Therapy [address] [place] [address] Gabe Spencer MD 08/11/2025 11:30 AM EDT Anesthesia Event [facility] [address] [place] [id number] Leonard Delgado, Wesley Johnson L, SENIOR NET SOFTWARE DEVELOPER 08/11/2025 10:55 AM EDT - 08/11/2025 12:15 PM EDT Surgery [facility] [address] [place] [address] Gabe Spencer MD KNEE ARTHROSCOPY LYSIS OF ADHESIONS 08/11/2025 10:40 AM EDT Ancillary Procedure [facility] SAME DAY SURGERY [address] [place] [address] Gabe Spencer MD 08/11/2025 7:52 AM EDT - 08/11/2025 2:55 PM EDT Hospital Encounter [facility] SAME DAY SURGERY [address] [place] [address] Gabe Spencer MD Preop testing (Primary Dx) Discharge Disposition: Home or Self Care 08/10/[address] [place] [address] Gabe Spencer MD Surgery 07/31/2025 10:00 AM EDT Clinical Support [facility] [address] [place] [address] Teo Hauser, RN Encounter for electrocardiogram (Primary Dx) 07/31/2025 9:05 AM EDT - 07/31/2025 11:59 PM EDT Hospital Encounter [place] [address] Preop testing Discharge Disposition: Home or Self Care 07/29/2025 Travel 07/28/2025 Travel 07/27/2025 Travel 07/14/[address] [address] Gabe Spencer MD Patient Question 07/12/2025 Telephone [facility] [place] [address] Yobany Roberts DO Cardiology Clearance (CC request from [facility]) 07/05/2025 3:45 PM EDT Office Visit [facility] [address] [place] [address] Gabe Spencer MD Status post total knee replacement, right (Primary Dx) 06/30/2025 9:30 [place] [address] Wilton Aguayo PA-C Primary osteoarthritis of left knee 06/30/2025 9:15 [place] [address] Wilton Aguayo PA-C Status post total knee replacement, right (Primary Dx); Primary osteoarthritis of left knee 06/09/2025 Telephone [facility] [address] [address] Matt Cerda MD Patient Question from Last 3 Months Surgical History Surgery Date Site/Laterality Comments SECTION SECTION JOINT REPLACEMENT 05/24/2024 Knee/Right Right Total Knee Replacement; Surgeon: Matt Cerda MD; Location: [facility]; Service: Orthopedics Medical devices from this surgery are in the Medical Devices section. KNEE JOINT MANIPULATION 07/14/2024 Knee/Right Right Knee Manipulation Under Anesthesia; Surgeon: Matt Cerda MD; Location: [facility]; Service: Orthopedics ORTHOPEDIC SURGERY Huly 2023 Total knee replacement KNEE ARTHROSCOPY 08/11/2025 Knee/Right RIGHT KNEE ARTHROSCOPY , LYSIS OF ADHESIONS; Surgeon: Gabe Spencer MD; Location: [facility]; Service: Orthopedics Medical History Medical History Date Comments Hypothyroidism Hypercholesteremia 08/27/2023 Prediabetes Essential (primary) hypertension High cholesterol Arthritis Post-operative nausea and vomiting mild post op nausea Sleep apnea CPAP Family History Medical History Relation Name Comments Cancer Father Valorie Heart Attack Father Valorie Heart Disease Father Valorie Heart Surgery Father Valorie High Cholesterol Father Valorie Diabetes Mother Beatriz Heart Attack Mother Beatriz Heart Disease Mother Beatriz Heart Surgery Mother Beatriz High Blood Pressure Mother Beatriz High Cholesterol Mother Beatriz Hypertension Mother Beatriz Anesth Problems Neg Hx Relation Name Status Comments Father Valorie Alive Mother Beatriz Alive Social History Tobacco Use Types Packs/Day Years Used Date Smoking Tobacco: Never Smokeless Tobacco: Never Tobacco Cessation:Counseling Given: Not Answered Alcohol Use Standard Drinks/Week Comments Never 0 (1 standard drink = 0.6 oz pur e alcohol) Comments No Sex and Gender Information Value Date Recorded Sex Assigned at Not on file Legal Sex Female 7:46 AM EDT Gender Identity Not on file Sexual Orientation Not on file Last Filed Vital Signs Vital Sign Reading Time Taken Comments Blood Pressure 107/63 08/11/2025 2:44 PM EDT Pulse 93 08/11/2025 2:44 PM EDT Temperature 36.1 C (97 F) 08/11/2025 2:54 PM EDT Respiratory Rate 20 08/11/2025 2:44 PM EDT Oxygen Saturation 100% 08/11/2025 2:44 PM EDT Inhaled Oxygen Concentration - - Weight 103 kg (227 lb) 07/31/2025 9:29 AM EDT Height 162.6 cm (5' 4 ) 07/27/2025 2:55 PM EDT Body Mass Index 38.96 07/27/2025 2:55 PM EDT Plan of Treatment Upcoming Encounters Date Type Department Care Team (Late st Contact Info) Description 08/31/2025 4:00 PM EDT Appointment [facility] Therapy [address] [place] [address] Collin Traore, PT 09/04/2025 10:00 AM EDT Appointment [facility] [address] [place] [address] Virginia Bagley, PT [address] [place] [address] 09/07/2025 4:00 PM EDT Appointment [facility] Therapy [address] [place] [address] Collin Traore, PT 09/11/2025 10:00 AM EDT Appointment [facility] [address] [place] [address] Virginia Bagley, PT [address] [place] [address] 09/14/2025 4:00 PM EDT Appointment [facility] Therapy [address] [place] [address] Collin Traore, PT 09/18/2025 10:00 AM EDT Appointment [facility] [address] [place], [place] [address] Virginia Bagley, PT [address] [place] [address] 09/19/2025 9:00 AM EDT Office Visit [facility] [address] [place] [phone] Yobany Roberts DO [address] [place] [address] 2025 4:00 PM EDT Appointment [address] [place] [address] Collin Traore, PT 10/03/2025 9:30 AM EST Office Visit [facility] [address] [place] [address] Mehul Ruiz, KAYA [address] [place] [address] 10/04/2025 8:00 AM EST Office Visit [facility] [address] [address] Gabe Spencer MD [address] [facility] [address] [place] [address] Health Maintenance Due Date Last Done Comments Wellness Exam Medicare 1958 Hepatitis C Screening 1975 Cologuard 2002 Colon Cancer Screening 2002 Colonoscopy 2002 FIT 2002 Sigmoidoscopy 2002 Virtual Colonography 2002 Breast Cancer Screening 01/18/2016 01/18/20 14, 01/03/2013, 12/29/2011, Additional history exists Zoster (2 of 2) 11/15/2021 09/20/2021 Bone Density Screening 2022 COVID-19 Vaccine ( season) 2025 10/14/2021, 01/12/2021, 12/13/2020 Influenza Vaccine (#1) 2025 , 10/26/2023, 11/18/2022, Additional history exists DTaP/TDaP/Td (3 - Td or Tdap) 01/01/2033 01/01/2023, 03/29/2018, 01/27/1997 Pneumococcal Vaccine 50+ Completed 11/18/2022, 12/2019 Hepatitis B Vaccine Aged Out No longe r eligible based on patient's age to complete this topic Meningococcal B Vaccine Aged Out No l onger eligible based on patient's age to complete this topic Medical Devices Implanted Type Area Restaurant Worker Device Identifier Shelf Expiration Date Model / Serial / Lot Triathlon Cr Fem Component - Beaded W/Pa - [id number] Implanted:Qty: 1 on 05/24/2024 by Matt Cerda MD at [facility] Right: Knee [employer] RECON 04/10/2029 5517-F-302 / / [id number] Tritanium Asymmetric Metal Backed Patella A35x10 - [id number] Implanted:Qty: 1 on 05/24/2024 by Matt Cerda MD at [facility] Right: Knee [employer] 04/12/2029 5552-L-350 / / [id number] Triathlon Tritanium Baseplate Size 2 - [id number] Implanted:Qty: 1 on 05/24/2024 by Matt Cerda MD at [facility] Right: Knee [employer] RECON 03/08/2029 5536-B-200 / / [id number] Triathlon Cs Insert #2 11mm - [id number] Implanted:Qty: 1 on 05/24/2024 by Matt Cerda MD at [facility] Right: Knee [employer]ON 03/02/2029 5531-G-211- E / / [id number] Knee Trit/X3ins/Tri - [id number] Implanted:Qty: 1 on 05/24/2024 by Matt Cerda MD at [facility] G[employer]INO RECON 5000-0- 000 / / Procedures Procedure Name Priority Date/Time Associated Diagnosis Comments INTRAOP AIRWAY PLACEMENT Routine 08/11/2025 11:34 AM EDT DC ARTHROSCOPY KNEE W/LYSIS ADHESIONS W/WO MANJ SPX 08/11/2025 11:30 AM EDT Status post total knee replacement, right PERIPHERAL BLOCK Routine 08/11/2025 11:2 4 AM EDT US ANES GUIDANCE FOR NERVE BLOCK STAT 08/11/2025 10:38 AM EDT GLUCOSE METER POC Routine 08/11/2025 8:4 1 AM EDT POCT EKG Routine 07/31/2025 9:38 AM EDT Encounter for electrocardiogram BASIC METABOLIC PANEL Routine 07/31/2025 9:06 AM EDT Preop testing DC ARTHROCENTESIS ASPIR&/INJ MAJOR JT/BURSA W/O US Routine 06/30/2025 9:15 AM EDT Primary osteoarthritis of left knee XR KNEE LEFT AP LATERAL AND SUNRISE STANDING Routine 06/30/2025 9:13 AM EDT Primary osteoarthritis of left knee MM MOBILE MAMMO DIGITAL SCREEN W CAD JESUS Routine 01/18/2014 12:23 PM EST Other screening mammogram from Last 3 Months or Most Recently Relevant to Health Maintenance Results * INTRAOP AIRWAY PLACEMENT (08/11/2025 11:34 AM EDT) Narrative [facility] - 08/11/2025 11:34 AM EDT Khushboo [...] Atraumatic and Unchanged Insertion attempts: 1 Title: TEACHER HEARING IMPAIRED us Leonard Delgado DO DC ANESTHESIA Edited Resu lt - Final [facility] [address] [place] [id number] * Peripheral Block by Anesthesia (08/11/2025 11:24 AM EDT) Narrative [facility] - 08/11/2025 11:24 AM EDT Lit [...] block is attached/scanned to the epic chart. us Leonard Delgado DO ANESTHESIA [place] [address] * US ANES GUIDANCE FOR NERVE BLOCK (08/11/2025 10:38 AM EDT) Narrative [employer], Audit - 08/11/2025 10:38 AM EDT Ultrasound guided nerve block performed by Anesthesiologist. The study image(s) are for reference only and will not be interpreted by a Radiologist. Refer to the Anesthesia procedure note for image description and procedure details. us Leonard Delgado DO IMG US ORDERABLES Final Res ult * (ABNORMAL) GLUCOSE METER POC (08/11/2025 8:41 AM EDT) [facility] Glucose Meter POC 102(H) 70 - 100 mg/dL 08/11/2025 8:42 AM EDT [facility] Sample Type Capillary 08/11/2025 8:42 AM EDT [facility] Patient Status Non-Critical Patient 08/11/2025 8:42 AM EDT [facility] Blood BLOOD SPECIMEN / Unknown 08/11/2025 8:41 AM EDT 08/11/2025 8:42 AM EDT Gabe Spencer MD POINT OF CARE TEST ORDERABLES F inal Result [facility] [address] [facility] [place] [address] * (ABNORMAL) BASIC METABOLIC PANEL [...] recommended by the National Kidney Foundation - [place] Society of Nephrology Task Force. Blood VENOUS BLOOD / Unknown Venipuncture / Unknown 07/31/2025 9:06 AM EDT 07/31/2025 9:06 AM EDT us Aryan Law MD CHEMISTRY ORDERABLES Terrie l Result [facility] [employer] [facility] [address] [facility], [place] [address] * DC ARTHROCENTESIS ASPIR&/INJ MAJOR JT/BURSA W/O US (06/30/2025 9:15 AM EDT) Narrative [facility] - 06/30/2025 9:15 AM EDT Wilton Augayo PA-C 07/05/2025 3:34 PM Large Joint Injection/Arthrocentesis: [...] to verify the correct patient, procedure, equipment, software support technician and site/side marked as required. Patient was prepped and draped in the usual sterile fashion. Wilton Aguayo PA-C PROCEDURE/MINOR SURGICAL OR DERABLES Final Result Performing Organization Address [facility]/ZIP Co de Phone Number [facility] * XR KNEE LEFT AP LATERAL AND SUNRISE STANDING (06/30/2025 9:13 AM EDT) Narrative Coby Rodriguez - 06/30/2025 9:13 AM EDT Please see physician's note from office encounter for x-ray imaging result Wilton Aguayo PA-C IMG DIAGNOSTIC IMAGING ORDE RABLES Final Result * MM MOBILE MAMMO DIGITAL SCREEN W CAD JESUS (01/18/2014 12:23 PM EST) Anatomical Region Laterality Modality Breast Mammography 01/19/2014 12:1 9 PM EST Impressions 01/19/2014 3:44 PM EST : Negative ([id number]) ~ RECOMMENDATION: Routine screening mammogram in 1 year. ~ * The patient with a palpable abnormality, unexplained by breast imaging, should be managed on clinical basis by the attending physician. * Breast imaging has a false negative rate of 15%. * The patient was notified by mail of the results of this examination. *The patient's information was entered into a reminder system with a target due date for the next mammogram. The mammogram was reviewed by a Radiologist and CAD. Narrative 01/19/2014 3:44 PM EST Procedure:MM MOBILE MAMMO DIGITAL SCREEN W CAD JESUS ~ Reason for exam: screening (asymptomatic). ~ MM MOBILE MAMMO DIGITAL SCREEN W CAD JESUS Bilateral CC and MLO view(s) were taken. There are scattered fibroglandular densities. Compared to prior studies the most recent being 01-03-13. ~ Procedure Note Nena Carpio MD - 01/19/2014 Procedure:MM MOBILE MAMMO DIGITAL SCREEN W CAD JESUS ~ Reason for exam: screening (asymptomatic). ~ MM MOBILE MAMMO DIGITAL SCREEN W CAD JESUS Bilateral CC and MLO view(s) were taken. There are scattered fibroglandular densities. Compared to prior studies the most recent being 01-03-13. ~ IMPRESSION: Negative ([id number]) ~ RECOMMENDATION: Routine screening mammogram in 1 year. ~ * The patient with a palpable abnormality, unexplained by breast imaging, should be managed on clinical basis by the attending physician. * Breast imaging has a false negative rate of 15%. * The patient was notified by mail of the results of this examination. *The patient's information was entered into a reminder system with atarget due date for the next mammogram. The mammogram was reviewed by a Radiologist and CAD. Elisabeth Mills [facility] MAMMOGRAPHY ORDERABLES Terrie l Result from Last 3 Months or Most Recently Relevant to Health Maintenance Insurance [employer] MEDICARE PPO MR Advance Directives For more information, please contact: [phone] Documents on File Type Date Recorded Patient Special Population Paraprofessional Expl anation Power of Scrubber System Attendant 07/14/2024 5:59 AM Power of Scrubber System Attendant Power of Scrubber System Attendant 07/14/2024 5:56 AM Power of cocoa bean roaster Advance Directives and Living Will 07/14/2024 5:52 AM Living will * Full Code (Latest Code Status on File) Date Activated Date Inactivated Comments 08/27/2023 11:22 AM 08/27/2023 8:51 PM Care Teams Psychiatric Specialist Relationship Specialty Start Date End Date Elisabeth Mills [address] [place] [address] [address] [place] [id number] PCP - General 12/18/10
--- OUTSIDE RECORDS SUMMARY | 2025-08-29 22:59 | XMS_ITS | Encounter Summary ---
Author [place] [address] Care Team Providers Care Natural Gas Trader Name Role Phone Gene, R Raf Primary Care Provider [phone] Encounter Details Date Type Department Care Team (Late st Contact Info) Description 08/14/2025 Plan of Care Documentation [facility] [place] [address] Social History Tobacco Use Types Packs/Day Years [...] as of this encounter Miscellaneous Notes * Therapist Plan of Care - Virginia Bagley, PT - 08/14/2025 10:57 AM EDT Images from the original note were not included. Please sign to acknowledge agreement with this updated plan of care. Physical Therapy Evaluation Patient Name: Rahda Sage : 1955 Visit #: 1 Onset Date: 08/11/25 s/p adhesions removed right knee Right tkr 07/27/24 Diagnosis: adhesions removed right knee Status post total knee replacement, right Restrictions/Precautions: Startex mi, right tkr 08/16 Physician: Johanna GONZALEZ Follow Up: 08/22/25 Evaluation Date: 08/14/2025 Reassessment Due: 09/13/25 Primary Insurance: [facility] MR/[facility] MEDICARE PPO MR Secondary Insurance: N/A Insurance Authorization: AMB REFERRAL TO PHYSICAL THERAPY Pending Review (07/05/2025-07/05/2026) Visits Requested Visits Authorized Visits Completed Visits Scheduled 1 1 -- 1 Details Referral ID: [id number] Authorization Status Reason: Benefits Verified Authorization Comments: -- Referred To: [facility] Referred By: Gabe Spencer MD at [facility] Creation Date: 07/05/2025 Referral Reasons: -- Referral Order: AMB REFERRAL TO PHYSICAL THERAPY Time In/Out: 9:50/10:53am Timed Treatment Minutes: Therapeutic Exercise 18 minutes Total Timed Code Treatment Minutes: 18 Untimed Treatment Minutes: Hot/cold packs and PT Eval Total Treatment Minutes: 63 This evaluation to serve as D/C summary if the patient doesn't return for further treatment. Subjective: Rahda Sage is a 69 y.o. female referred [...] Knee Replacement; Surgeon: Matt Cerda MD; Location: [facility]; Service: Orthopedics KNEE JOINT MANIPULATION Right 07/14/2024 Right Knee Manipulation Under Anesthesia; Surgeon: Matt Cerda MD; Location: [facility]; Service: Orthopedics ORTHOPEDIC SURGERY [facility] 2023 Total knee replacement Current Outpatient Medications [...] Tablet Take 137 mcg by mouth daily dolly pusher. Thursday to Thursday takes 1 tablet but [...] a few days a week Recreational Activities: catholic Patient Goals: Decrease pain, Improve flexibility, Increase [...] right knee surgery Treatment HEP Access Code: [email or web address] URL: [email or web address] Date: 08/14/2025 Prepared by: Virginia Bagley There [...] 8/10 [x] Unmet [] Progressing [] Met Jail Goals: (set for 8 weeks) Update/Status Patient's [...] weeks. Treatments to consist of Therapeutic exercise 39131, Neuromuscular re-education 72576, Manual soft tissue and/or joint mobilization 14200,Patient education, Electrical stimulation (unattended Medicare) G0283, Cryotherapy 57175, Therapeutic activity 52940, and Gait training 79772 Patient present with co-morbidities of cardiac disease [...] more Unstable/ Unpredictable High Signature: Virginia Bagley, CELE Date: 08/14/2025 documented in this encounter Plan of Treatment Upcoming Encounters Date Type Department Care Team (Late st Contact Info) Description 08/31/2025 4:00 PM EDT Appointment [facility] Physical Therapy [address] [place] [place] [address] Collin Traore, PT 09/04/2025 10:00 AM EDT Appointment [facility] Physical Therapy [address] [place] [address] Virginia Bagley, PT [address] [place] [phone] 09/07/2025 4:00 PM EDT Appointment [facility] Physical Therapy [address] [place] [address] Collin Traore, PT 09/11/2025 10:00 AM EDT Appointment [facility] Physical Therapy [address] [place] [address] Virginia Bagley, PT [address] [place] [address] 09/14/2025 4:00 PM EDT Appointment [facility] Physical Therapy [address] [place] [address] Collin rTaore, PT 09/18/2025 10:00 AM EDT Appointment [facility] Physical Therapy [address] [place] [place] [address] Virginia Bagley, PT [address] [place] [address] 09/19/2025 9:00 AM EDT Office Visit [facility] [address] [place] [phone] Yobany Roberts DO [address] [place] [address] 2025 4:00 PM EDT Appointment [facility] Physical Therapy [address] [place] [address] Collin Traore, PT 10/03/2025 9:30 AM EST Office Visit [facility] [address] [place] [address] Mehul Ruiz, KAYA [address] [place] [address] 10/04/2025 8:00 AM EST Office Visit [facility] [address] [address] Gabe Spencer MD [address] [place] [address] documented as of this encounter Visit Diagnoses Not on filedocumented in this encounter Care Teams Natural Gas Trader Relationship Specialty Start Date End Date Elisabeth Mills [facility] [address] [place] [address] PCP - General 12/18/10 documented as of this encounter
--- OUTSIDE RECORDS SUMMARY | 2025-08-29 22:59 | XMS_ITS | Encounter Summary ---
Author [place] [address] Care Team Providers Care Tower Operator Name Role Phone Elisabeth Mills Primary Care Provider [phone] Encounter Details Date Type Department Care Team (Late st Contact Info) Description 08/14/2025 Orders Only [facility] Physical Therapy [address] [place] [address] Gabe Spencer MD [address] [facility] [address] [place] [address] Social History Tobacco Use Types Packs/Day Years [...] Description 08/31/2025 4:00 PM EDT Appointment [facility] Physical Therapy [address] [place] [address] Collin Traore, PT 09/04/2025 10:00 AM EDT Appointment [facility] Physical [address] [place] [address] Virginia Bagley, PT [address] [place] [phone] 09/07/2025 4:00 PM EDT Appointment [facility] Physical Therapy [address] [place] [address] Collin Traore, PT 09/11/2025 10:00 AM EDT Appointment [address] [place] [address] Virginia Bagley, PT [address] [place] [address] 09/14/2025 4:00 PM EDT Appointment [facility] Physical [address] [place] [address] Collin Traore, PT 09/18/2025 10:00 AM EDT Appointment [address] [place] [address] Virginia Bagley, PT [address] [place] [address] 09/19/2025 9:00 AM EDT Office Visit [facility] [address] [place] [phone] Yobany Roberts DO [address] [place] [address] 2025 4:00 PM EDT Appointment [facility] Physical [address] [place] [address] Collin Traore, PT 10/03/2025 9:30 AM EST Office Visit [facility] [address] [place] [address] Mehul Ruiz, ORDNANCE TRUCK INSTALLATION MECHANIC [address] [place] [address] 10/04/2025 8:00 AM EST Office Visit [facility] [address] [place] [address] Gabe Spencer MD [address] [place] [address] documented as of this encounter Visit Diagnoses Not on filedocumented in this encounter Care Teams Tower Operator Relationship Specialty Start Date End Date Elisabeth Mills [address] [facility] [address] [place] [address] PCP - General 12/18/10 documented as of this encounter
--- OUTSIDE RECORDS SUMMARY | 2025-08-29 22:59 | XMS_ITS | Encounter Summary ---
Author [place] [address] Care Team Providers Care Enterprise Systems Architect Name Role Phone Elisabeth Mills Primary Care Provider [phone] Encounter Details Date Type Department Care Team (Late st Contact Info) Description 08/14/2025 Orders Only [facility] Physical Therapy [address] [place] [address] Gabe Spencer MD [address] [facility] 100 [place] [address] Social History Tobacco Use Types Packs/Day Years [...] Info) Description 08/31/2025 4:00 PM EDT Appointment [facility] Physical Therapy [address] [place] [address] Collin Traore, PT 09/04/2025 10:00 AM EDT Appointment [facility] Physical [address] [place] [address] Virginia Bagley, PT [address] [place] [phone] 09/07/2025 4:00 PM EDT Appointment [facility] Physical Therapy [address] [place] [address] Collin Traore, PT 09/11/2025 10:00 AM EDT Appointment [address] [place] [address] Virginia Bagley, PT [address] [place] [address] 09/14/2025 4:00 PM EDT Appointment [facility] Physical [address] [place] [address] Collin Traore, PT 09/18/2025 10:00 AM EDT Appointment [address] [place] [address] Virginia Bagley, PT [address] [place] [address] 09/19/2025 9:00 AM EDT Office Visit [facility] [address] [place] [phone] Yobany Roberts DO [address] [place] [address] 2025 4:00 PM EDT Appointment [facility] Physical [address] [place] [address] Collin Traore, PT 10/03/2025 9:30 AM EST Office Visit [facility] [address] [place] [address] Mehul Ruiz, RESIDENTIAL MENTAL HEALTH WORKER [address] [place] [address] 10/04/2025 8:00 AM EST Office Visit [facility] [address] [place] [address] Gabe Spencer MD [address] [place] [address] documented as of this encounter Visit Diagnoses Not on filedocumented in this encounter Care Teams Enterprise Systems Architect Relationship Specialty Start Date End Date Elisabeth Mills [address] [facility] [address] [place] [address] PCP - General 12/18/10 documented as of this encounter
--- OUTSIDE RECORDS SUMMARY | 2025-08-29 22:59 | XMS_ITS | Encounter Summary ---
Author Organization [facility] Address [address] [place] [address] Care Team Providers Care Instrumentation Specialist Name Role Phone Elisabeth Mills Primary Care Provider [phone] Reason for Visit * Reason Onset Date Comments Surgery 08/10/2025 Encounter Details Date Type Department Care Team (Late Contact Info) Description 08/10/2025 Telephone [facility] [address] [place] [address] Gabe Spencer MD [address] [place] [address] Surgery Social History Tobacco Use Types Packs/Day Years [...] encounter Miscellaneous Notes * Telephone Encounter - Fabiola Paobn, Clerical Staff - 08/10/2025 1:24 PM EDT SPOKE TO PATIENT: SX ARRIVAL TIME 8:00 am 08/11/25 FTT documented in this encounter Plan of Treatment Upcoming Encounters Date Type Department Care Team (Late st Contact Info) Description 08/31/2025 4:00 PM EDT Appointment [facility] Physical Therapy [place] [address] [place] [address] Collin Traore, PT 09/04/2025 10:00 AM EDT Appointment [facility] Physical Therapy [address] [place] [address] Virginia aBgley, PT [address] [place] [phone] 09/07/2025 4:00 PM EDT Appointment [facility] Physical Therapy [place] [address] [place] [address] Collin Traore, PT 09/11/2025 10:00 AM EDT Appointment [facility] Physical Therapy [address] [place] [address] Virginia Bagley, PT [address] [place] [address] 09/14/2025 4:00 PM EDT Appointment [facility] Physical Therapy [place] [address] [place] [address] Collin Traore, PT 09/18/2025 10:00 AM EDT Appointment [facility] Physical Therapy [address] [place] [address] Virginia Bagley, PT [address] [place] [address] 09/19/2025 9:00 AM EDT Office Visit [facility] [address] [place] [address] Yobany Roberts DO [address] [place] [address] 2025 4:00 PM EDT Appointment [facility] Physical Therapy [address] [place] [address] Collin Traore, CELE 10/03/2025 9:30 AM EST Office Visit [facility] [address] [place] [address] Mehul Ruiz APRN [address] [place] [address] 10/04/2025 8:00 AM EST Office Visit [facility] [address] [address] Gabe Spencer MD [address] [place] [address] documented as of this encounter Visit Diagnoses Not on filedocumented in this encounter Care Teams Instrumentation Specialist Relationship Specialty Start Date End Date Elisabeth Mills [facility]0 [address] [place] [address] PCP - General 12/18/10 documented as of this encounter
--- OUTSIDE RECORDS SUMMARY | 2025-08-29 22:59 | XMS_ITS | Encounter Summary ---
Author Organization [facility] [address] Care Team Providers Care Tow Motor Driver Name Role Phone Elisabeth Mills Primary Care Provider [phone] Encounter Details Date Type Department Care Team (Latest Contact Info) Description 07/28/2025 Travel Social History Tobacco Use Types Packs/Day [...] Description 08/31/2025 4:00 PM EDT Appointment [facility] Physical Therapy [address] [place] [address] Collin Traore, CELE 09/04/2025 10:00 AM EDT Appointment [facility] Physical Therapy [address] [place] [address] Virginia Bagley, PT [address] [place] [address] 09/07/2025 4:00 PM EDT Appointment [facility] Physical Therapy [address] [place] [address] Collin Traore, PT 09/11/2025 10:00 AM EDT Appointment [facility] Physical Therapy [address] [place] [address] Virginia Bagley, PT [address] [place] [phone] 09/14/2025 4:00 PM EDT Appointment [facility] Physical [address] [place], [place] [address] Collin Traore, PT 09/18/2025 10:00 AM EDT Appointment [facility] Physical [address] [place] [address] Virginia Bagley, PT [address] [place] [address] 09/19/2025 9:00 AM EDT Office Visit [facility] [address] [place] [phone] Yobany Roberts DO [address] [place] [address] 2025 4:00 PM EDT Appointment [facility] Physical [address] [place] [address] Collin Traore, PT 10/03/2025 9:30 AM EST Office Visit [facility] [address] [address] Mehul Ruiz, KAYA [address] [place] [address] 10/04/2025 8:00 AM EST Office Visit [facility] [address] [address] Gabe Spencer MD [address] [place] [address] documented as of this encounter Visit Diagnoses Not on filedocumented in this encounter Care Teams Tow Motor Driver Relationship Specialty Start Date End Date Elisabeth Mills [address] [place] [address] [address] [place] [address] PCP - General 12/18/10 documented as of this encounter
--- OUTSIDE RECORDS SUMMARY | 2025-08-29 22:59 | XMS_ITS | Encounter Summary ---
Author Organization [facility] Address [address] [place] [address] Care Team Providers Care Grinder Operator External Tool Name Role Phone Elisabeth Mills Primary Care Provider [phone] Reason for Visit * Reason Onset Date Comments Other 08/14/2025 Encounter Details Date Type Department Care Team (Late st Contact Info) Description 08/14/2025 [place] [address] Gabe Spencer MD [address] [place] [address] Other Social History Tobacco Use Types Packs/Day Years [...] encounter Miscellaneous Notes * Telephone Encounter - Yecenia Patiño NA - 08/14/2025 3:59 PM EDT Spoke to patient and she wanted to know if she could shower without covering her incision now that PT took her bandages off. I advised that this is okay to do so just no scrubbing, submerging, or leaving it wet. She understood, no further questions. * Telephone Encounter - Inez Patel, Clerical Staff - 08/14/2025 1:40 PM EDTSummary: PHONE CALL PT RETURNING CALL I CALLED POD A [phone]=DD ANSWER PLEASE ADVISE * Telephone Encounter - Nia Aguilar APRN - 08/14/2025 1:31 PM EDT Postop call: Left a message for Radah to call back it looks like she called earlier today however she did not picker and packer the phone. * Telephone Encounter - Rosa Lujan - 08/14/2025 1:11 PM EDT please return call about post op questions please advise documented in this encounter Plan of Treatment Upcoming Encounters Date Type Department Care Team (Late st Contact Info) Description 08/31/2025 4:00 PM EDT Appointment [facility] Physical Therapy [address] [place] [address] Collin Traore, PT 09/04/2025 10:00 AM EDT Appointment [facility] Physical Therapy [address] [address] Virginia Bagley, PT [address] [place] [address] 09/07/2025 4:00 PM EDT Appointment [facility] Physical Therapy [address] [place] [address] Collin Traore, PT 09/11/2025 10:00 AM EDT Appointment [facility] Physical Therapy [address] [place] [address] Virginia Bagley, PT [address] [place] [phone] 09/14/2025 4:00 PM EDT Appointment [facility] Physical Therapy [address] [place] [address] Collin Traore, PT 09/18/2025 10:00 AM EDT Appointment [facility] Physical Therapy [address] [place] [address] Virginia Bagley, PT [address] [place] [address] 09/19/2025 9:00 AM EDT Office Visit [facility] [address] [place] [phone] Yobany Roberts DO [address] [place] [address] 2025 4:00 PM EDT Appointment [facility] Physical Therapy [address] [place] [address] Collin Traore, PT 10/03/2025 9:30 AM EST Office Visit [facility] [address] [address] Mehul Ruiz, KAYA [address] [place] [address] 10/04/2025 8:00 AM EST Office Visit [facility] [address] [address] Gabe Spencer MD [address] [place] [address] documented as of this encounter Visit Diagnoses Not on filedocumented in this encounter Care Teams Grinder Operator External Tool Relationship Specialty Start Date End Date Elisabeth Mills [address] [facility] [address] [place] [address] PCP - General 12/18/10 documented as of this encounter
== END 2025-08-29 23:59 | disposition home or self-care (01) ==
LOC: LAB.DROPOF 22:57
PROVIDERS: PCP Nurse Practitioner; Visit Provider Nurse Practitioner
DX: E55.9 Vitamin D deficiency, unspecified (principal); R73.01 Impaired fasting glucose; E03.9 Hypothyroidism, unspecified; I10 Essential (primary) hypertension; E78.5 Hyperlipidemia, unspecified; Z68.41 Body mass index [BMI] 40.0-44.9, adult
CPT/HCPCS: 80053; 80061; 82043; 82306; 82570; 82607; 83036; 84439; 84443